=== PATIENT | female | born 1955 | race Caucasian/White ===

== ENCOUNTER 2022-08-01 13:25 | Emergency (ER) | payer OTHER, MEDICAID, SELFPAY ==
[2022-08-01 13:45] VITALS: BP 118/83; PULSE 68; RESP 14; TEMP 36.6; O2SAT 97; BMI 29.1
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
--- NOTE | 2022-08-01 14:46 | ED.NURSE ---
EDITA automatic grinder operator speaking with
--- NOTE | 2022-08-01 14:51 | ED.NURSE ---
145-OCT assessment in progress.
[2022-08-01 16:15] VITALS: BP 118/83; PULSE 68; RESP 14; TEMP 36.6
== END 2022-08-01 17:00 | disposition home or self-care (01) ==
PROVIDERS: Emergency Provider Emergency Medicine; PCP Family Medicine
DX: F31.9 Bipolar disorder, unspecified (principal); F32.A Depression, unspecified
CPT/HCPCS: 99283

== ENCOUNTER 2023-02-05 09:32 | Emergency (ER) | payer OTHER, SELFPAY ==
[2023-02-05 09:36] VITALS: BP 116/76; PULSE 72; RESP 16; TEMP 36.1; O2SAT 98; BMI 29.1
--- NOTE | 2023-02-05 09:48 | ED_ITS ---
HPI - General Adult General Time Seen by Provider: 09:48 Date Seen: 02/05/23 Chief complaint: Unspecified Complaint, Adult Stated complaint: Needs prescription refill Time Seen by Provider: 02/05/23 09:34 Source: patient Mode of arrival: ambulatory Limitations: no limitations History of Present Illness HPI narrative: Patient presents for med refill. Lexi is 9 months new to the community, has not found a psychiatrist and has not plugged into a doctor yet. She is running out of her clonazepam 1 mg daily and she is also continues on her trazodone lithium levothyroxine famotidine which she has medicines for. She has a history of depression, mental health disorders. She has tolerated the medications well. She has denies any history of addiction. Related Data Home Medications Medication Instructions Recorded Confirmed famotidine 20 mg tablet 20 mg PO BID 08/01/22 02/10/23 levothyroxine 75 mcg tablet 75 mcg PO DAILY 08/01/22 02/10/23 lithium carbonate 300 mg tablet 600 mg PO BID 08/01/22 02/10/23 trazodone 100 mg tablet 50 mg PO HS PRN 02/10/23 02/10/23 Previous Rx's Medication Instructions Recorded clonazepam 1 mg tablet 1 mg PO BID Bipolar #60 tabs 02/10/23 Allergies Allergy/AdvReac Type Severity Reaction Status Date / Time No Known Drug Allergies Allergy Verified 02/10/23 08:37 Review of Systems Narrative: No history of worsening mental health currently [facility] Medical History (Updated 02/10/23 @ 09:02 by Shaji Gillespie MD) Bipolar 1 disorder ?F31.9 - Bipolar disorder, unspecified (ICD-10) Hypothyroidism ?E03.9 - Hypothyroidism, unspecified (ICD-10) Social History Smoking Status: Never smoker How often do you have a drink containing alcohol: monthly or less AUDIT-C Alcohol total score: 1 Non-prescribed substance use: denies use Little interest or pleasure in doing things: several days Feeling down, depressed, or hopeless: several days service: Yes Exam Narrative: Exam Narrative: Objective vital signs as above Patient is alert oriented, mental status is appropriate Const: Vital Signs, click to edit/add: Vital Signs - 24 hr 02/05/23 09:36 Temperature 96.9 F L Pulse Rate [Left P ulse Oximeter] 72 Respiratory Rate 16 Blood Pressure [Le ft Upper Arm] 116/76 Pulse Oximetry 98 Oxygen Delivery Me thod Room Air Course Vital Signs Vital signs: Initial Vital Signs Temperature 96.9 F L 02/05/23 09:36 Temperature Source Temporal Artery Scan 02/05/23 09:36 Pulse Rate 72 02/05/23 09:36 Pulse Rhythm Regular 02/05/23 09:36 Pulse Strength 3+ Normal 02/05/23 09:36 Respiratory Rate 16 02/05/23 09:36 Blood Pressure 116/76 02/05/23 09:36 Blood Pressure Mean 89 02/05/23 09:36 Blood Pressure Position Sitting 02/05/23 09:36 Pulse Oximetry 98 02/05/23 09:36 Oxygen Delivery Method Room Air 02/05/23 09:36 Vital Signs Temperature 96.9 F L 02/05/23 09:36 Pulse Rate 72 02/05/23 09:36 Respiratory Rate 16 02/05/23 09:36 Blood Pressure 116/76 02/05/23 09:36 Pulse Oximetry 98 02/05/23 09:36 Oxygen Delivery Method Room Air 02/05/23 09:36 Temperature 96.9 F L 02/05/23 09:36 Pulse Rate 72 02/05/23 09:36 Respiratory Rate 16 02/05/23 09:36 Blood Pressure 116/76 02/05/23 09:36 Pulse Oximetry 98 02/05/23 09:36 Oxygen Delivery Method Room Air 02/05/23 09:36 Medical Decision Making MDM Narrative Medical decision making narrative: Patient has run out of her clonazepam medication which she takes 1 mg b.i.d., she has been on this for a good period of time she reports. It has been stable. We will set up to see clinic doctor in the next few days, she can consult psychiatrist as able. Will refill her medicine for a week. Discharge Plan Discharge Clinical Impression: Medication refill, Depression Patient Disposition: Home, Self-Care Condition: Stable Additional Instructions: Follow up appointment is scheduled at the [facility] on 02/10 with an 8:30am appointment time. If you have any questions or need to reschedule, please call [phone]. [address] [address] Activity Level: No Restrictions Discharge Diet: Regular Prescriptions: No Action clonazepam 1 mg tablet 1 mg PO BID Qty: 60 2RF famotidine 20 mg tablet 20 mg PO BID lithium carbonate 300 mg tablet 600 mg PO BID levothyroxine 75 mcg tablet 75 mcg PO DAILY trazodone 100 mg tablet 50 mg PO HS PRN Patient Comments: Take 1-2 tabs at HS PRN Follow Up/Referrals: Zunilda Jackson MD [Primary Care Provider] - Stand Alone Forms: [employer] Info Instructions
== END 2023-02-05 10:18 | disposition home or self-care (01) ==
LOC: ED 10:14
PROVIDERS: Emergency Provider Family Medicine; PCP Family Medicine
DX: F32.A Depression, unspecified (principal); Z76.0 Encounter for issue of repeat prescription
CPT/HCPCS: 99283

== ENCOUNTER 2023-06-11 13:17 | Outpatient (CLI) | payer OTHER, SELFPAY | END 2023-06-11 13:18 | disposition home or self-care (01) | PROVIDERS: PCP Internal Medicine; Visit Provider Internal Medicine | DX: E03.9 Hypothyroidism, unspecified (principal); F31.9 Bipolar disorder, unspecified | CPT/HCPCS: 80048; 80178; 84443 ==

== ENCOUNTER 2023-06-25 16:41 | Outpatient (CLI) | payer OTHER, SELFPAY | END 2023-06-25 16:42 | disposition home or self-care (01) | LOC: NFLDREF 16:42 | PROVIDERS: PCP Internal Medicine; Visit Provider Internal Medicine | DX: F31.9 Bipolar disorder, unspecified (principal); E03.9 Hypothyroidism, unspecified | CPT/HCPCS: 80178 ==

== ENCOUNTER 2023-07-22 13:21 | Outpatient (CLI) | payer OTHER, SELFPAY | END 2023-07-22 13:22 | disposition home or self-care (01) | LOC: NFLDREF 13:21 | PROVIDERS: PCP Internal Medicine; Visit Provider Internal Medicine | DX: F31.9 Bipolar disorder, unspecified (principal) | CPT/HCPCS: 80178 ==

== ENCOUNTER 2024-04-20 09:50 | Outpatient (CLI) | payer OTHER, SELFPAY ==
--- OUTSIDE RECORDS SUMMARY | 2024-04-25 10:22 | XMS_ITS | Encounter Summary ---
Author Organization [facility] Address [address] [place] [address] Care Team Providers Care Torch Straightener And Heater Name Role Phone Marianela Back M.D. Primary Care Provider +1- [phone] Reason for Referral * Behavioral Health (Routine) - Authorized Specialty Diagnoses / Procedures Referred By Paige arnold Referred To Contact Psychiatry / Psychiatry and Psychology Diagnoses Bipolar I Disorder (HCC) Marianela Back M.D. [address] [place] [phone] [facility] Region Referral ID Status Reason Start Date Expiration Date Visits Requested Visits Authorized [id number] Authorized Specialty Services Required 01/09/2024 07/10/2025 1 1 Scheduling Instructions Patient requesting [place] or [place] location. FISHER Reason for Visit * Reason Onset Date Comments Referral 01/09/2024 Encounter Details Date Type Department Care Team (Late st Contact Info) Description 01/09/2024 Clinical Communication Department of Family Medicine, [facility], in [address] [phone] Marianela Back M.D. [address] [place] [phone] Referral Social History Tobacco Use Types Packs/Day Years Used Date Smoking Tobacco: Never Smokeless Tobacco: Never Alcohol Use Standard Drinks/Week Comments Yes 2 (1 standard drink = 0.6 oz pur e alcohol) monthly [facility] Utilities Answer Date Recorded In [...] your living situation today? I have a [facility] place to live 12/18/2023 Sex and Gender Information Value Date Recorded Sex Assigned at Female 12/18/2023 8:55 AM LINE FISHER Gender Identity Female 05/21/2018 4:12 PM CDT Sexual Orientation Straight 05/21/2018 4: 12 PM CDT documented as of this encounter Plan of Treatment Upcoming Encounters Date Type Department Care Team (Late st Contact Info) Description 06/16/2024 2:45 PM CDT Telemedicine Department of Allergy in [place], [place] [address] [place] [phone] Araceli Fierro M.D. [address] [place] [phone] Discharge Disposition: Home or Self Care Scheduled [...] Depression Total Score: 11 024 12:44 PM LINE FISHER documented as of this encounter Care Teams Torch Straightener And Heater Relationship Specialty Start Date End Date Marianela Back M.D. [address] [phone] PCP - General Family Medicine 12/08/23 documented as of this encounter
--- OUTSIDE RECORDS SUMMARY | 2024-04-25 10:22 | XMS_ITS | Encounter Summary ---
Author Organization [facility] Address [address] [place] [address] Care Team Providers Care Seed Cleaning Machine Operator Name Role Phone Marianela Back M.D. Primary Care Provider +1- [phone] Encounter Details Date Type Department Care Team (Late st Contact Info) Description 01/14/2017 Historical Ophthalmology [facility] Eduardo Todd O.D. [address] [place] [address] Social History Tobacco Use Types Packs/Day Years Used Date Smoking Tobacco: Never Sex and Gender Information Value Date Recorded Sex Assigned at Female 12/18/2023 8:55 AM HOUSE SERVANT Gender Identity Female 05/21/2018 4:12 PM CDT [...] eyeglass prescription\ CDM Reports - EYEGEN Id: [id number] Status: Fnl documented in this encounter Plan of Treatment Upcoming Encounters Date Type Department Care Team (Late st Contact Info) Description 06/16/2024 2:45 PM CDT Telemedicine Department of Allergy in [address] [phone] Araceli Fierro M.D. [address] [place] [phone] Discharge Disposition: Home or Self Care documented as of this encounter Visit Diagnoses Not on filedocumented in this encounter Additional Health Concerns Infection Onset Date Last Indicated Resolved Time COVID19 Pending 11/18/2020 11/18/2020 11/18/2020 1 1:59 AM HOUSE SERVANT COVID19 Pending 11/18/2020 11/18/2020 11/18/2020 6 :45 PM HOUSE SERVANT COVID19 Pending 10/15/2021 10/15/2021 10/15/2021 8 :23 PM HOUSE SERVANT COVID19 Pending 01/29/2022 01/29/2022 01/29/2022 1 :59 PM CDT COVID19 Pending 03/28/2022 03/28/2022 03/28/2022 1 0:49 AM CDT COVID19 Pending 03/28/2022 03/28/2022 03/28/2022 1 :14 PM CDT Assessment Noted Time PHQ-9 Depression Total Score: 0 03/13/20 15 3:14 PM CDT documented as of this encounter Care Teams Seed Cleaning Machine Operator Relationship Specialty Start Date End Date Marianela Back M.D. [address] [place] [phone] PCP - General Family Medicine 12/08/23 documented as of this encounter
--- OUTSIDE RECORDS SUMMARY | 2024-04-25 10:22 | XMS_ITS | Referral Summary ---
Author Organization [facility] Address [address] [place] [address] Care Team Providers Care Compliance Lead Name Role Phone Marianela Back M.D. Primary Care Provider +1- [phone] Source Comments Patient records contain information from all sites at [facility]. For routine questions regarding patient records, call [phone] during business hours, M-F 8:00 AM - 5:00 PM Central Time. Record requests for emergency care only can be directed to [phone] at any time.[facility] Encounters Date Type Department Care Team Description 02/06/2024 Clinical Communication Department of Family Medicine, [facility], in [address] [phone] Marianela Back M.D. Referral-Psychiatry from Last 3 Months Allergies Active Allergy [...] - MODE RNA (12 YEARS AND OLDER) [id number] 12/24/2023 SARS-COV-2 (COVID-19) - PFIZ ER (Discontinued)(12 [...] = 0.6 oz pur e alcohol) monthly [facility] Utilities Answer Date Recorded In the [...] your living situation today? I have a [facility] place to live 12/18/2023 Sex and Gender Information Value Date Recorded Sex Assigned at Female 12/18/2023 8:55 AM SUPPORT TECHNICIAN Gender Identity Female 05/21/2018 4:12 PM CDT Sexual Orientation Straight 05/21/2018 4: 12 PM CDT Last Filed Vital Signs Vital Sign Reading Time Taken Comments Blood Pressure 130/82 12/29/2023 12:42 PM SUPPORT TECHNICIAN Pulse 70 12/29/2023 12:42 PM SUPPORT TECHNICIAN Temperature 36.9 ??C (98.4 ??F) 12/24/2023 1 1:57 AM SUPPORT TECHNICIAN Respiratory Rate 16 06/02/2023 1:48 PM CDT Oxygen Saturation 98% 12/24/2023 11: 57 AM SUPPORT TECHNICIAN Inhaled Oxygen Concentration - - Weight 79.4 kg (175 lb 0.7 oz) 12/29/19 24 12:42 PM SUPPORT TECHNICIAN with shoes Height 166.5 cm (5' 5.55) 12/29/2023 1 2:42 PM SUPPORT TECHNICIAN with shoes Body Mass Index 28.64 12/29/2023 12:42 PM SUPPORT TECHNICIAN Plan of Treatment Upcoming Encounters Date Type Department Care Team (Late st Contact Info) Description 06/16/2024 2:45 PM CDT Telemedicine Department of Allergy in [address] [phone] Araceli Fierro M.D. [address] [place] [phone] Discharge Disposition: Home or Self Care Procedures Procedure Name Priority Date/Time Associated Diagnosis Comments THYROID FUNCTION CASCADE, S Routine 12/24/2023 12:52 PM SUPPORT TECHNICIAN Hypothyroidism EXTI COMPREHENSIVE METABOLIC PANEL, S/P Routine 04/24/2022 2:38 PM CDT BI BREAST SCREENING BILATERAL WITH TOMOSYNTHESIS RAD - Routine (most inpatients and all outpatients) 03/13/2021 1:50 PM CDT PATHOLOGY PARAPROFESSIONAL AIDE CYTOLOGY Routine 05/21/2018 11:21 AM CDT Pap Smear Examination COLONOSCOPY Routine 04/09/2016 from Last 3 Months or Most Recently Relevant to Health Maintenance Results * Thyroid Function [place] (12/24/2023 12:52 PM SUPPORT TECHNICIAN) TSH, Sensitive 0.8 0.3 - 4.2 mIU/L 12/24/2023 1:51 PM SUPPORT TECHNICIAN CNFL Blood (Blood, Venous) 12/24/2023 12:52 PM SUPPORT TECHNICIAN 12/24/2023 12:53 PM SUPPORT TECHNICIAN Marianela Back M.D. LAB BLOOD ADD-ON [facility] [address] [place] [address], [facility] CNFL [facility] in [address] [address] * Pathology PARAPROFESSIONAL AIDE Cytology (05/21/2018 11:21 AM CDT) PATHOLOGY PARAPROFESSIONAL AIDE CYTOLOGY Patient Name: LEXI MCELROY MR#: [id number] Location: ??[facility] Date Reported: ??06/05/2018 15:13 Specimen #[id number] Other Clinical Conditions: Pap Type: Routine Pap Clinical History/Status (Select all that apply): Post Menopausal Ancillary Testing (Select all that apply): HPV with Genotyping, PCR, ThinPrep (order separately in [facility] [id number]) Source: ThinPrep Liquid Based Pap Test, cervical/endocer [...] ? Valerie Patricia MD ([id number]) Date Reported:06/05/20 15:[address], ??[place] [address] CPT Code(s) A: 617588620, 07602 The cervico-vaginal smear is a screening test [...] LAB PAP COPATH ORDERABLES JESUS ZUÑIGA [address] [place] [address], [facility] * Colonoscopy (04/09/2016) EXT Colonoscopy Abnormal - See Scanned Report for Details Normal - See Scanned Report for Details, HIMS - Report Received and Scanned Comment:Colonoscopy done in- house. Recall 5 years. Historical Provider GI PROCEDURE ORDERAB LES from Last 3 Months or Most Recently Relevant to Health Maintenance Care Teams Compliance Lead Relationship Specialty Start Date End Date Marianela Back M.D. [address] [place] [phone] PCP - General Family Medicine 12/08/23
--- OUTSIDE RECORDS SUMMARY | 2024-04-25 10:22 | XMS_ITS ---
Author Organization [facility] Address [address] [place] [address] Care Team Providers Care Lab Nurse Name Role Phone Unavailable Unavailable Unavailable Surgery Details Not on file Complications Check Surgery Details section. Procedure Estimated Blood Loss Check Surgery Details section. Procedure Findings Check Surgery Details section. Procedure Specimens Taken Check Surgery Details section.
--- OUTSIDE RECORDS SUMMARY | 2024-04-25 10:22 | XMS_ITS | Encounter Summary ---
Author Organization [facility] Address [address] [place] [address] Care Team Providers Care Hair Spinning Machine Operator Name Role Phone Marianela Back M.D. Primary Care Provider [phone]- [phone] Encounter Details Date Type Department Care Team (Late st Contact Info) Description 04/27/2015 Historical Ophthalmology [facility] Eduardo Todd O.D. [address] [place] [phone] Social History Tobacco Use Types Packs/Day Years Used Date Smoking Tobacco: Never Assessed Sex and Gender Information Value Date Recorded Sex Assigned at Female 12/18/2023 8:55 AM MUSTANGER Gender Identity Female 05/21/2018 4:12 PM CDT [...] LE scl CDM Reports - EYECL Id: [id number] Status: Fnl documented in this encounter Plan of Treatment Upcoming Encounters Date Type Department Care Team (Late st Contact Info) Description 06/16/2024 2:45 PM CDT Telemedicine Department of Allergy in [place], [place] [address] [place] [phone] Araceli Fierro M.D. [address] [place] [phone] Discharge Disposition: Home or Self Care documented as of this encounter Visit Diagnoses Not on filedocumented in this encounter Additional Health Concerns Infection Onset Date Last Indicated Resolved Time COVID19 Pending 11/18/2020 11/18/2020 11/18/2020 1 1:59 AM MUSTANGER COVID19 Pending 11/18/2020 11/18/2020 11/18/2020 6 :45 PM MUSTANGER COVID19 Pending 10/15/2021 10/15/2021 10/15/2021 8 :23 PM MUSTANGER COVID19 Pending 01/29/2022 01/29/2022 01/29/2022 1 :59 PM CDT COVID19 Pending 03/28/2022 03/28/2022 03/28/2022 1 0:49 AM CDT COVID19 Pending 03/28/2022 03/28/2022 03/28/2022 1 :14 PM CDT Assessment Noted Time PHQ-9 Depression Total Score: 0 03/13/20 15 3:14 PM CDT documented as of this encounter Care Teams Hair Spinning Machine Operator Relationship Specialty Start Date End Date Marianela Back M.D. [address] [place] [phone] PCP - General Family Medicine 12/08/23 documented as of this encounter
--- OUTSIDE RECORDS SUMMARY | 2024-04-25 10:22 | XMS_ITS | Clinical Summary ---
Author Organization [facility] Address [place], [place] [address] Care Team Providers Care Front End Loader Driver Name Role Phone Amanda Vargas RN Unavailable [phone] Oxana Pedroza RN Unavailable [phone] Emily Angel RN Unavailable [phone] Pcp, No Primary Care Provider Unavailabl e Allergies Active Allergy Reactions Criticality Noted Date [...] %) nasal sprayIndications:P ost-nasal drip Inhale 1 Hilliard into affected nostril(s) 3 times daily. Hilliard dose in each nostril. 30 mL 07/02/2022 [...] signed 10/29/2022 Overview: Signed 10-29-2022. Cedrick Vinson [facility] Psychiatry History of partial adherence to [...] Name Administration Dates Next Due COVID-19 vaccine (Health in [employer] NTech 30mcg/0.3mL) 12YO+ BIVALENT PF, MDV 10/29/2022 COVID-19 vaccine (Health in [employer] NTech 30mcg/0.3mL) 12YO+ ALEXANDR-SUCROSE PF, MDV 07/17/2022 [...] Ectopic Multiple Livin g Live Births 1 Date Outcome GA Total Labor Labor/2nd/3rd Weight Sex Type Anes PTL Daphne A1 A5 Name Clin 982 Term Livin g Rosario Delivery Location:[facility] [place]) Last Filed Vital Signs Vital Sign Reading Time Taken Comments Blood Pressure 133/81 10/29/2022 8:43 AM FEDERAL AID COORDINATOR Pulse 76 10/29/2022 8:43 AM FEDERAL AID COORDINATOR Temperature 37.3 ??C (99.1 ??F) 07/17/2022 1:22 PM CD T Respiratory Rate - - Oxygen Saturation 98% 07/17/2022 1:22 PM CDT Inhaled Oxygen Concentration - - Weight 82.4 kg (181 lb 11.2 oz) 10/29/2022 8:43 AM FEDERAL AID COORDINATOR Height 167 cm (5' 5.75) 04/24/2022 1:20 PM CDT Body Mass Index 29.55 04/24/2022 1:20 PM CDT Plan of Treatment Upcoming Encounters Date Type Department Care Team (Late st Contact Info) Description 05/25/2024 2:15 PM CDT Office Visit [facility] [address] [place] [phone] Yordan Bhandari-Gianluca Monterroso MD [address] [facility] [address] [place] [address] Health Maintenance Due Date Last Done Comments [...] , 09/19/2014, 08/17/2012 Tetanus booster 05/21/2028 05/21/2018, 02/2008, 08/20/1995, Additional history exists Tdap Completed 06/20/2008 COVID-19 vaccine series Completed 12/24/19, 10/29/2022, 07/17/2022, Additional history exists Care Teams Front End Loader Driver Relationship Specialty Start Date End Date Pcp, No . PCP - General 04/23/24 Amanda Vargas RN [address] [place] [phone] Administrative Specialist - [facility] Registered Nurse 10/17/22 Oxana Pedroza RN [address] [place] [phone] Administrative Specialist - [facility] Registered Nurse 10/17/22 Emily Angel RN [address] [place] [address] [phone] Administrative Specialist - [facility] Registered Nurse 10/17/22
--- OUTSIDE RECORDS SUMMARY | 2024-04-25 10:22 | XMS_ITS | Encounter Summary ---
Author Organization [facility] Address [address] [place] [address] Care Team Providers Care Senior Java Programmer Analyst Name Role Phone Marianela Back M.D. Primary Care Provider [phone] Reason for Visit * Reason Onset Date Comments Referral-Psychiatry 02/06/2024 Encounter Details Date Type Department Care Team (Latest Contact Info) Description 02/06/2024 Clinical Communication Department of Family Medicine, [facility], in [address] [phone] Marianela Back M.D. [address] [place] [phone] Referral-Psychiatry Social History Tobacco Use Types Packs/Day Years Used Date Smoking Tobacco: Never Smokeless Tobacco: Never Alcohol Use Standard Drinks/Week Comments Yes 2 (1 standard drink = 0.6 oz pur e alcohol) monthly [facility] Utilities Answer Date Recorded In the past 12 months has [employer], gas, oil, or water [employer] threatened to shut off services in your [...] your living situation today? I have a [facility] place to live 12/18/2023 Sex and Gender Information Value Date Recorded Sex Assigned at Female 12/18/2023 8:55 AM IDENTITY MANAGEMENT DEVELOPER Gender Identity Female 05/21/2018 4:12 PM CDT Sexual Orientation Straight 05/21/2018 4: 12 PM CDT documented as of this encounter Plan of Treatment Upcoming Encounters Date Type Department Care Team (Late st Contact Info) Description 06/16/2024 2:45 PM CDT Telemedicine Department of Allergy in [place], [place] [address] [place] [phone] Araceli Fierro M.D. [address] [place] [phone] Discharge Disposition: Home or Self Care documented as of this encounter Visit Diagnoses Not on filedocumented in this encounter Additional Health Concerns Assessment Noted Time PHQ-9 Depression Total Score: 11 024 12:44 PM IDENTITY MANAGEMENT DEVELOPER documented as of this encounter Care Teams Senior Java Programmer Analyst Relationship Specialty Start Date End Date Marianela Back M.D. [address] [place] [phone] PCP - General Family Medicine 12/08/23 documented as of this encounter
--- OUTSIDE RECORDS SUMMARY | 2024-04-25 10:22 | XMS_ITS | Clinical Summary ---
Author Organization [facility] Address [address] [place] [address] Care Team Providers Care Advance Seal Delivery System Maintainer Name Role Phone Marianela Back M.D. Primary Care Provider [phone]- [phone] Source Comments Patient records contain information from all sites at [facility]. For routine questions regarding patient records, call [phone] during business hours, M-F 8:00 AM - 5:00 PM Central Time. Record requests for emergency care only can be directed to [phone] at any time.[facility] Allergies Active Allergy Reactions Criticality Noted Date [...] 02/06/2024 Clinical Communication Department of Family Medicine, [facility], in [address] [phone] Marianela Back M.D. Referral-Psychiatry from Last 3 Months Immunizations Name Administration Dates Next Due DTaP (Infanrix, [employer]) 06/20/2008 Influenza, Quadrivalent, Adjuvanted, Preservativ e Free 10/29/2022 Influenza, Unspecified 09/19/2014,08/17/2012 OPV 08/27/1973 SARS-COV-2 (COVID-19) - MODE RNA (12 YEARS AND OLDER) [id number] 12/24/2023 SARS-COV-2 (COVID-19) - PFIZ ER (Discontinued)(12 [...] = 0.6 oz pur e alcohol) monthly [facility] Utilities Answer Date Recorded In the past 12 months has th e [employer], gas, oil, or water [employer] threatened to shut off services in your [...] your living situation today? I have a [facility] place to live 12/18/2023 Sex and Gender Information Value Date Recorded Sex Assigned at Female 12/18/2023 8:55 AM TUFTING SUPERVISOR Gender Identity Female 05/21/2018 4:12 PM CDT Sexual Orientation Straight 05/21/2018 4: 12 PM CDT Last Filed Vital Signs Vital Sign Reading Time Taken Comments Blood Pressure 130/82 12/29/2023 12:42 PM TUFTING SUPERVISOR Pulse 70 12/29/2023 12:42 PM TUFTING SUPERVISOR Temperature 36.9 ??C (98.4 ??F) 12/24/2023 1 1:57 AM TUFTING SUPERVISOR Respiratory Rate 16 06/02/2023 1:48 PM CDT Oxygen Saturation 98% 12/24/2023 11: 57 AM TUFTING SUPERVISOR Inhaled Oxygen Concentration - - Weight 79.4 kg (175 lb 0.7 oz) 12/29/19 12:42 PM TUFTING SUPERVISOR with shoes Height 166.5 cm (5' 5.55) 12/29/2023 1 2:42 PM TUFTING SUPERVISOR with shoes Body Mass Index 28.64 12/29/2023 12:42 PM TUFTING SUPERVISOR Plan of Treatment Upcoming Encounters Date Type Department Care Team (Late st Contact Info) Description 06/16/2024 2:45 PM CDT Telemedicine Department of Allergy in [place], [place] [address] [place] [phone] Araceli Fierro M.D. [address] [place] [phone] Discharge Disposition: Home or Self Care Health Maintenance Due Date Last Done Comments Bone Density Scan (Osteoporo sis Screen) 1956 CT Colonography 1955 Cologuard 1955 Pneumococcal vaccine (65+ ye ars) (1 of 2 - PCV) 1962 Zoster Vaccines (1 of 2) 2006 Colonoscopy 04/09/2021 04/09/2016, 04/09/2016 Colorectal Cancer Surveillance 04/09/2021 Mammogram 03/13/2022 03/13/2021, 04/11/2020, 03/07/2021, Additional history exists Influenza Vaccine (#1) 2023 2, 10/29/2022, 10/22/2018, Additional history exists COVID-19 Vaccine (2022- 4 season) 2024 12/24/2023, 10/29/2022, 07/17/2022, Additional [...] FUNCTION CASCADE, S Routine 12/24/2023 12:52 PM TUFTING SUPERVISOR Hypothyroidism EXTI COMPREHENSIVE METABOLIC PANEL, S/P Routine 04/24/2022 2:38 PM CDT BI BREAST SCREENING BILATERAL WITH TOMOSYNTHESIS RAD - Routine (most inpatients and all outpatients) 03/13/2021 1:50 PM CDT PATHOLOGY VISITOR SERVICES REPRESENTATIVE CYTOLOGY Routine 05/21/2018 11:21 AM CDT Pap Smear Examination COLONOSCOPY Routine 04/09/2016 from Last 3 Months or Most Recently Relevant to Health Maintenance Results * Thyroid Function [place] (12/24/2023 12:52 PM TUFTING SUPERVISOR) TSH, Sensitive 0.8 0.3 - 4.2 mIU/L 12/24/2023 1:51 PM TUFTING SUPERVISOR CNFL Blood (Blood, Venous) 12/24/2023 12:52 PM TUFTING SUPERVISOR 12/24/2023 12:53 PM TUFTING SUPERVISOR Marianela Back M.D. LAB BLOOD ADD-ON [facility] [address] [place] [phone], [facility] CNFL [facility] in [address] [address] * Pathology VISITOR SERVICES REPRESENTATIVE Cytology (05/21/2018 11:21 AM CDT) PATHOLOGY VISITOR SERVICES REPRESENTATIVE CYTOLOGY Patient Name: LEXI MCELROY MR#: [id number] Location: ??[facility] Date Reported: ??06/05/2018 15:13 Specimen #[id number] Other Clinical Conditions: Pap Type: Routine Pap Clinical History/Status (Select all that apply): Post Menopausal Ancillary Testing (Select all that apply): HPV with Genotyping, PCR, ThinPrep (order separately in [facility] [id number]) Source: ThinPrep Liquid Based Pap Test, cervical/endocer [...] Patricia MD ([id number]) Date Reported:06/05/20 18 15:[address], ??[place] [address] CPT Code(s) A: 855316082, 08942 The cervico-vaginal smear is a screening test [...] LAB PAP COPATH ORDERABLES JESUS ZUÑIGA [address] [place] [address], [facility] * Colonoscopy (04/09/2016) EXT Colonoscopy Abnormal - See Scanned Report for Details Normal - See Scanned Report for Details, HIMS - Report Received and Scanned Comment:Colonoscopy done in- house. Recall 5 years. Historical Provider GI PROCEDURE ORDERAB LES from Last 3 Months or Most Recently Relevant to Health Maintenance Care Teams Advance Seal Delivery System Maintainer Relationship Specialty Start Date End Date Marianela Back M.D. [address] [place] [phone] PCP - General Family Medicine 12/08/23
--- OUTSIDE RECORDS SUMMARY | 2024-04-25 10:22 | XMS_ITS | Encounter Summary ---
Author Organization [facility] Address [address] [place] [address] Care Team Providers Care Back Hoe Operator Name Role Phone Mariaenla Back M.D. Primary Care Provider +1- [phone] Encounter Details Date Type Department Care Team (Late st Contact Info) Description 12/14/2015 Historical Ophthalmology [facility] Eduardo Todd O.D. [address] [place] [phone] Social History Tobacco Use Types Packs/Day Years Used Date Smoking Tobacco: Never Assessed Sex and Gender Information Value Date Recorded Sex Assigned at Female 12/18/2023 8:55 AM WHIZZER OPERATOR Gender Identity Female 05/21/2018 4:12 PM CDT Sexual Orientation Straight 05/21/2018 4: 12 PM CDT documented as of this encounter Progress Notes * Eduardo Todd O.D. - 12/14/2015 4:14 PM CST Contact Lens Exam HISTORY OF PRESENT ILLNESS vision isn't that good with contacts but likes to wear them. CDM Reports - EYECL Id: [id number] Status: Fnl documented in this encounter Plan of Treatment Upcoming Encounters Date Type Department Care Team (Late st Contact Info) Description 06/16/2024 2:45 PM CDT Telemedicine Department of Allergy in [place], [place] [address] [facility] [place] [phone] Araceli Fierro M.D. [address] [place] [phone] Discharge Disposition: Home or Self Care documented as of this encounter Visit Diagnoses Not on filedocumented in this encounter Additional Health Concerns Infection Onset Date Last Indicated Resolved Time COVID19 Pending 11/18/2020 11/18/2020 11/18/2020 1 1:59 AM WHIZZER OPERATOR COVID19 Pending 11/18/2020 11/18/2020 11/18/2020 6 :45 PM WHIZZER OPERATOR COVID19 Pending 10/15/2021 10/15/2021 10/15/2021 8 :23 PM WHIZZER OPERATOR COVID19 Pending 01/29/2022 01/29/2022 01/29/2022 1 :59 PM CDT COVID19 Pending 03/28/2022 03/28/2022 03/28/2022 1 0:49 AM CDT COVID19 Pending 03/28/2022 03/28/2022 03/28/2022 1 :14 PM CDT Assessment Noted Time PHQ-9 Depression Total Score: 0 03/13/20 15 3:14 PM CDT documented as of this encounter Care Teams Back Hoe Operator Relationship Specialty Start Date End Date Marianela Back M.D. [address] [place] [phone] PCP - General Family Medicine 12/08/23 documented as of this encounter
--- OUTSIDE RECORDS SUMMARY | 2024-04-25 10:22 | XMS_ITS | Encounter Summary ---
Author Organization [facility] Address [address] [place] [address] Care Team Providers Care Career Education Teacher Name Role Phone Marianela Back M.D. Primary Care Provider +1- [phone] Encounter Details Date Type Department Care Team (Late st Contact Info) Description 01/14/2017 Historical Ophthalmology [facility] Eduardo Todd O.D. [address] [place] [phone] Social History Tobacco Use Types Packs/Day Years Used Date Smoking Tobacco: Never Sex and Gender Information Value Date Recorded Sex Assigned at Female 12/18/2023 8:55 AM INSPECTOR RADAR AND ELECTRONICS Gender Identity Female 05/21/2018 4:12 PM CDT Sexual Orientation Straight 05/21/2018 4: 12 PM CDT documented as of this encounter Progress Notes * Eduardo Todd O.D. - 01/14/2017 1:33 PM CST Contact Lens Exam HISTORY OF PRESENT ILLNESS likes fit not vision of current contacts . last wore cl's 2 days ago CDM Reports - EYECL Id: [id number] Status: Fnl documented in this encounter Plan of Treatment Upcoming Encounters Date Type Department Care Team (Late st Contact Info) Description 06/16/2024 2:45 PM CDT Telemedicine Department of Allergy in [address] [place] [phone] Araceli Fierro M.D. [address] [place] [phone] Discharge Disposition: Home or Self Care documented as of this encounter Visit Diagnoses Not on filedocumented in this encounter Additional Health Concerns Infection Onset Date Last Indicated Resolved Time COVID19 Pending 11/18/2020 11/18/2020 11/18/2020 1 1:59 AM INSPECTOR RADAR AND ELECTRONICS COVID19 Pending 11/18/2020 11/18/2020 11/18/2020 6 :45 PM INSPECTOR RADAR AND ELECTRONICS COVID19 Pending 10/15/2021 10/15/2021 10/15/2021 8 :23 PM INSPECTOR RADAR AND ELECTRONICS COVID19 Pending 01/29/2022 01/29/2022 01/29/2022 1 :59 PM CDT COVID19 Pending 03/28/2022 03/28/2022 03/28/2022 1 0:49 AM CDT COVID19 Pending 03/28/2022 03/28/2022 03/28/2022 1 :14 PM CDT Assessment Noted Time PHQ-9 Depression Total Score: 0 03/13/20 15 3:14 PM CDT documented as of this encounter Care Teams Career Education Teacher Relationship Specialty Start Date End Date Marianela Back M.D. [address] [place] [phone] PCP - General Family Medicine 12/08/23 documented as of this encounter
--- OUTSIDE RECORDS SUMMARY | 2024-04-25 10:22 | XMS_ITS | Encounter Summary ---
Author Organization [facility] Address [address] [place] [address] Care Team Providers Care Radiation Safety Officer Name Role Phone Marianela Back M.D. Primary Care Provider [phone]- [phone] Reason for Visit * Reason Onset Date Comments Colonoscopy 01/23/2024 Encounter Details Date Type Department Care Team (Late st Contact Info) Description 01/23/2024 Clinical Communication Department of Family Medicine, [facility], in [address] [phone] Marianela Back M.D. [address] [place] [phone] Colonoscopy Social History Tobacco Use Types Packs/Day Years Used Date Smoking Tobacco: Never Smokeless Tobacco: Never Alcohol Use Standard Drinks/Week Comments Yes 2 (1 standard drink = 0.6 oz pur e alcohol) monthly [facility] Utilities Answer Date Recorded In the past 12 months has [employer], gas, oil, or water [employer] threatened to shut off services in your [...] your living situation today? I have a [facility] place to live 12/18/2023 Sex and Gender Information Value Date Recorded Sex Assigned at Female 12/18/2023 8:55 AM MARKETING AUTOMATION SPECIALIST Gender Identity Female 05/21/2018 4:12 PM CDT Sexual Orientation Straight 05/21/2018 4: 12 PM CDT documented as of this encounter Plan of Treatment Upcoming Encounters Date Type Department Care Team (Late st Contact Info) Description 06/16/2024 2:45 PM CDT Telemedicine Department of Allergy in [place], [place] [address] [place] [phone] Araceli Fierro M.D. [address] [place] [phone] Discharge Disposition: Home or Self Care documented as of this encounter Visit Diagnoses Not on filedocumented in this encounter Additional Health Concerns Assessment Noted Time PHQ-9 Depression Total Score: 11 024 12:44 PM MARKETING AUTOMATION SPECIALIST documented as of this encounter Care Teams Radiation Safety Officer Relationship Specialty Start Date End Date Marianela Back M.D. [address] [phone] PCP - General Family Medicine 12/08/23 documented as of this encounter
--- OUTSIDE RECORDS SUMMARY | 2024-04-25 10:22 | XMS_ITS | Encounter Summary ---
Author Organization [facility] Address [address] [place] [address] Care Team Providers Care In Home Aide Name Role Phone Marianela Back M.D. Primary Care Provider +1- [phone] Encounter Details Date Type Department Care Team (Late st Contact Info) Description 12/14/2015 Historical Ophthalmology [facility] Eduardo Todd O.D. [address] [place] [phone] Social History Tobacco Use Types Packs/Day Years Used Date Smoking Tobacco: Never Assessed Sex and Gender Information Value Date Recorded Sex Assigned at Female 12/18/2023 8:55 AM BOWLING FLOOR MANAGER Gender Identity Female 05/21/2018 4:12 PM [...] eyeglass prescription CDM Reports - EYEGEN Id: [id number] Status: Fnl documented in this encounter Plan of Treatment Upcoming Encounters Date Type Department Care Team (Late st Contact Info) Description 06/16/2024 2:45 PM CDT Telemedicine Department of Allergy in [place], [place] [address] [place] [phone] Araceli Fierro M.D. [address] [place] [phone] Discharge Disposition: Home or Self Care documented as of this encounter Visit Diagnoses Not on filedocumented in this encounter Additional Health Concerns Infection Onset Date Last Indicated Resolved Time COVID19 Pending 11/18/2020 11/18/2020 11/18/2020 1 1:59 AM BOWLING FLOOR MANAGER COVID19 Pending 11/18/2020 11/18/2020 11/18/2020 6 :45 PM BOWLING FLOOR MANAGER COVID19 Pending 10/15/2021 10/15/2021 10/15/2021 8 :23 PM BOWLING FLOOR MANAGER COVID19 Pending 01/29/2022 01/29/2022 01/29/2022 1 :59 PM CDT COVID19 Pending 03/28/2022 03/28/2022 03/28/2022 1 0:49 AM CDT COVID19 Pending 03/28/2022 03/28/2022 03/28/2022 1 :14 PM CDT Assessment Noted Time PHQ-9 Depression Total Score: 0 03/13/20 15 3:14 PM CDT documented as of this encounter Care Teams In Home Aide Relationship Specialty Start Date End Date Marianela Back M.D. [address] [address] [place] [phone] PCP - General Family Medicine 12/08/23 documented as of this encounter
== END 2024-04-20 09:51 | disposition home or self-care (01) ==
LOC: NFLDREF 04-25 10:20
PROVIDERS: PCP Internal Medicine; Referring Provider Internal Medicine; Visit Provider Internal Medicine
DX: F31.9 Bipolar disorder, unspecified (principal); Z51.81 Encounter for therapeutic drug level monitoring
CPT/HCPCS: 80178

== ENCOUNTER 2024-04-21 13:39 | Outpatient (CLI) | payer OTHER, SELFPAY ==
--- OUTSIDE RECORDS SUMMARY | 2024-04-21 13:41 | XMS_ITS | Clinical Summary ---
Author Organization [facility] Address [place], [place] [address] Care Team Providers Care Char Conveyor Tender Cellar Name Role Phone Amanda Vargas RN Unavailable [phone] Oxana Pedroza RN Unavailable [phone] Emily Angel RN Unavailable Allergies Active Allergy Reactions Criticality Noted Date Comments Aripiprazole Nausea And Vomiting 03/27/2009 Quetiapine Other - Describe In Comment Field 05/28/2017 Loss of balance Ziprasidone Hcl Itching 05/28/2017 Medications Medication Sig Dispensed Refills Start Date End Date Status famotidine (PEPCID) 20 mg tablet Take 20 mg by mouth 2 times daily. 10/18/2021 Active multivitamin (MVI) tablet Take 1 Tablet by mouth once daily. Active cetirizine (ZYRTEC) 10 mg tabletIndications: Post-nasal drip Take 1 Tablet (10 mg) by mouth once daily. 30 Tablet 07/02/2022 Active ipratropium (ATROVENT NASAL) 21 mcg (0.03 %) nasal sprayIndications:P ost-nasal drip Inhale 1 [place] into affected nostril(s) 3 times daily. [place] dose in each nostril. 30 mL 07/02/2022 Active traZODone (DESYREL) 100 mg tabletIndications: Bipolar 1 disorder (HC) Take 1 Tablet (100 mg) by mouth at bedtime. 90 Tablet 3 10/29/2022 Active lithium carbonate 600 mg capsuleIndications :Bipolar 1 disorder (HC) Take 1 Capsule (600 mg) by mouth two times daily. 180 Capsule 3 10/29/2022 Active clonazePAM (KLONOPIN) 1 mg tabletIndications: Bipolar 1 disorder (HC) Take 1 Tablet (1 mg) by mouth two times daily. Further refills will be prescribed during an appointment 60 Tablet 2 10/29/2022 Active levothyroxine (SYNTHROID) 75 mcg tabletIndications: Hypothyroidism (acquired) Take 1 Tablet (75 mcg) by mouth once daily. 30 Tablet 06/11/2023 Active Active Problems Problem Noted Date Diagnosed Date Controlled substance agreement signed 10/29/2022 Overview: Signed 10-29-2022. 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 smear 04/27/2015 Overview: 2014: Pap: normal, HPV+ (negative for 16/18) 2015: Pap: LSIL, HPV+ (negative for 16/18); colp EYAL 1, ECC negative 2016: Pap: normal, HPV+ (negative for 16/18); colp EYAL 1, ECC EYAL 1 2017: Pap: normal, HPV- 2018: Pap: ASCUS, HPV- Abnormal cervical Papanicola ou smear with positive human papilloma virus (HPV) DNA test 04/27/2015 Resolved Problems Problem Noted Date Diagnosed Date Resolved Date Acne rosacea, papular type 08/24/2019 0 07/17/2022 History of alcohol abuse 10/23/2018 History of substance abuse 10/23/2018 0 07/17/2022 Substance abuse in remission 10/23/2018 10/29/2022 Drug-related disorder 05/09/20172021 Obesity with body mass index 30 or greater 04/01/2016 07/17/2022 Carpal tunnel syndrome 03/26/201607/17 Anxiety 02/07/2012 10/29/2022 Immunizations Name Administration Dates Next Due COVID-19 vaccine (OROS-Bio NTech 30mcg/0.3mL) 12YO+ BIVALENT PF, MDV 10/29/2022 COVID-19 vaccine (OROS-Bio NTech 30mcg/0.3mL) 12YO+ ALEXANDR-SUCROSE PF, MDV 07/17/2022 DTaP 06/20/2008 Influenza Virus, Unspecified 09/19/2014,08/17/20 12 Influenza, Inactivated AIIV4 (Age 65+ Years) Preserv Free 10/29/2022 Oral Polio Vaccine 08/27/1973 Td (Age >=7 Years) 08/20/1995,03/05/1972 Td, Preservative Free (age >= 7 Years) 8 Tdap 06/20/2008 Family History Medical History Relation Name Comments Anxiety disorder Daughter Rosario Depression Daughter Rosario Suicide Attempts Daughter Rosario Bipolar disorder Mother Depression Sister Relation Name Status Comments Daughter Rosario Other Mother Sister Social History Tobacco Use Types Packs/Day Years Used Date Smoking Tobacco: Never Smokeless Tobacco: Never Tobacco Cessation:Counseling Given: Not Answered Alcohol Use Standard Drinks/Week Comments Yes 0 (1 standard drink = 0.6 oz pur e alcohol) 1-2 drinks, 2-3 times a month PHQ-2 Answer Date Recorded PHQ-2 TOTAL SCORE 2 10/29/2022 Social Connections Answer Date Recorded Frequency of Communication with Friends and Fami ly Not on file 07/18/2023 Alcohol Use Answer Date Recorded How often do you have a drink containing alcohol ? 2 10/29/2022 How many drinks containing a lcohol do you have on a typical day when you are drinking? 0 10/29/2022 How often do you have five or more drinks on one occasion? 1 10/29/2022 Financial Resource Strain Answer Date R ecorded Difficulty of Paying Living Expenses 2 07/17/2022 Difficulty of Paying Living Expenses Not on file 07/17/2022 Food Insecurity Answer Date Recorded Worried About Running Out of Food in the Last Ye ar 1 07/17/2022 Transportation Needs Answer Date Record ed Lack of Transportation (Medical) 2 07/17/2022 Housing Stability Answer Date Recorded Unable to Pay for Housing in the Last Year 1 07/17/2022 Education Answer Date Recorded What is the highest level of school you have completed or the highest degree you have received? Some college, no degree 10/29/2022 Sex and Gender Information Value Date Recorded Sex Assigned at Not on file Gender Identity Not on file Sexual Orientation Not on file Obstetrics History Para Term AB IAB SAB Ectopic Multiple Livin g Live Births 1 1 1 1 1 Date Outcome GA Total Labor Labor/2nd/3rd Weight Sex Delivery Anes PTL Daphne A1 A5 Name Cl in 08/31 Term Noni ng Rosario Delivery Location:Hospital ( [facility]) Last Filed Vital Signs Vital Sign Reading Time Taken Comments Blood Pressure 133/81 10/29/2022 8:43 AM REGISTERED NURSE STEP DOWN Pulse 76 10/29/2022 8:43 AM REGISTERED NURSE STEP DOWN Temperature 37.3 ??C (99.1 ??F) 07/17/2022 1:22 PM CD T Respiratory Rate - - Oxygen Saturation 98% 07/17/2022 1:22 PM CDT Inhaled Oxygen Concentration - - Weight 82.4 kg (181 lb 11.2 oz) 10/29/2022 8:43 AM REGISTERED NURSE STEP DOWN Height 167 cm (5' 5.75) 04/24/2022 1:20 PM CDT Body Mass Index 29.55 04/24/2022 1:20 PM CDT Plan of Treatment Health Maintenance Due Date Last Done Comments Pneumococcal series for age 65+ (1 of 2 - PCV) 1962 Hepatitis C screening for ag e 18-79 1974 Colonoscopy through age 75 2001 Lipids for age 45-75 2001 Mammogram for age 45-75 2001 Zoster (shingles) series for age 50+ (1 of 2) 2006 DEXA/DXA scan for age 65+ 2021 Medicare Wellness for age 65+ 2021 BMI (ht and wt on same day) for age 18+ 04/24/2023 04/24/2022 Depression screening for age 12+ 10/29/2023 10/29/20, 04/24/2022 Influenza for age 65+ 07/18/2024 10/29/2022 , 09/19/2014, 08/17/2012 Tetanus booster 05/21/2028 05/21/2018, 08/0 02/2008, 08/20/1995, Additional history exists Tdap Completed 06/20/2008 COVID-19 vaccine series Completed 12/24/19, 10/29/2022, 07/17/2022, Additional history exists Care Teams Char Conveyor Tender Cellar Relationship Specialty Start Date End Date Amanda Vargas RN [address] [id number] [employer] [place] [facility] Nurse 10/17/22 Oxana Pedroza RN [address] [phone] [employer] [place] [facility]istered Nurse 10/17/22 Emily Angel RN [address] [id number] [employer] - [facility] Registered Nurse 10/17/22
--- OUTSIDE RECORDS SUMMARY | 2024-04-21 13:42 | XMS_ITS | Encounter Summary ---
Author Organization [facility] Address [address] [place] [address] Care Team Providers Care Dial Polisher Name Role Phone Marianela Back M.D. Primary Care Provider [phone] Reason for Visit * Reason Onset Date Comments Referral-Psychiatry 02/06/2024 Encounter Details Date Type Department Care Team (Latest Contact Info) Description 02/06/2024 Clinical Communication Department of Family Medicine, [facility], in [address] [phone] Marianela Back M.D. [address] [place] [phone] Referral-Psychiatry Social History Tobacco Use Types Packs/Day Years Used Date Smoking Tobacco: Never Smokeless Tobacco: Never Alcohol Use Standard Drinks/Week Comments Yes 2 (1 standard drink = 0.6 oz pur e alcohol) monthly [facility] Utilities Answer Date Recorded In the past 12 months has Ev[employer], gas, oil, or water [employer] threatened to shut off services in your home? No 12/18/2023 PHQ-2 Answer Date Recorded PHQ-2 Score 2 12/29/2023 Exercise Vital Sign Answer Date Recorde d On average, how many days pe r week do you engage in moderate to strenuous exercise (like a brisk walk)? 1 day 12/18/2023 On average, how many minutes do you engage in exercise at this level? 10 min 12/18/2023 Hunger Vital Sign Answer Date Recorded Within the past 12 months, y ou worried that your food would run out before you got the money to buy more. Often true Within the past 12 months, t he food you bought just didn't last and you didn't have money to get more. Sometimes true 11/2023 PRAPARE - Transportation Answer Date Re corded In the past 12 months, has l ack of transportation kept you from medical appointments or from getting medications? No 11/2023 In the past 12 months, has l ack of transportation kept you from meetings, work, or from getting things needed for daily living? No 12/18/2023 Depression Answer Date Recor ded PHQ-9 Total Score (max 27) 11 12/29 Nutrition Answer Date Recorded Nutrition: EVOO Fat Source Unknown 12/18 On average, how many serving s of fruits and vegetables do you eat per day (serving size is equal to 1 cup or approximately the size of a tennis ball)? 0-2 12/18/2023 Dental Answer Date Recorded Dental: Regular Dentist Yes 12/18/19 Employment Answer Date Recorded Employment status Permanently disabled Housing Stability Answer Date Recorded What is your living situation today? I have a [facility] place to live 12/18/2023 Sex and Gender Information Value Date Recorded Sex Assigned at Female 12/18/2023 8:55 AM LENS GAUGER Gender Identity Female 05/21/2018 4:12 PM CDT Sexual Orientation Straight 05/21/2018 4: 12 PM CDT documented as of this encounter Plan of Treatment Upcoming Encounters Date Type Department Care Team (Late st Contact Info) Description 06/16/2024 2:45 PM CDT Telemedicine Department of Allergy in [address] [phone] Araceli Fierro M.D. [address] [place] [phone] Discharge Disposition: Home or Self Care documented as of this encounter Visit Diagnoses Not on filedocumented in this encounter Additional Health Concerns Assessment Noted Time PHQ-9 Depression Total Score: 11 024 12:44 PM LENS GAUGER documented as of this encounter Care Teams Dial Polisher Relationship Specialty Start Date End Date Marianela Back M.D. [address] [phone] PCP - General Family Medicine 12/08/23 documented as of this encounter
--- OUTSIDE RECORDS SUMMARY | 2024-04-21 13:42 | XMS_ITS ---
Author Organization [facility] Address [address] [place] [address] Care Team Providers Care Archival Records Clerk Name Role Phone Unavailable Unavailable Unavailable Surgery Details Not on file Complications Check Surgery Details section. Procedure Estimated Blood Loss Check Surgery Details section. Procedure Findings Check Surgery Details section. Procedure Specimens Taken Check Surgery Details section.
--- OUTSIDE RECORDS SUMMARY | 2024-04-21 13:42 | XMS_ITS | Encounter Summary ---
Author Organization [facility] Address [address] [place] [address] Care Team Providers Care Micro Photographer Name Role Phone Marianela Back M.D. Primary Care Provider [phone]- [phone] Reason for Referral * Behavioral Health (Routine) - Authorized Specialty Diagnoses / Procedures Referred By Paige arnold Referred To Contact Psychiatry / Psychiatry and Psychology Diagnoses Bipolar I Disorder (HCC) Marianela Back M.D. [address] [place] [phone] [facility] Region Referral ID Status Reason Start Date Expiration Date Visits Requested Visits Authorized [id number] Authorized Specialty Services Required 01/09/2024 07/10/2025 1 1 Scheduling Instructions Patient requesting [place] or [place] location. TS COMMENTATOR Reason for Visit * Reason Onset Date Comments Referral 01/09/2024 Encounter Details Date Type Department Care Team (Late st Contact Info) Description 01/09/2024 Clinical Communication Department of Family Medicine, [facility], in [address] [phone] Marianela Back M.D. [address] [place] [phone] Referral Social History Tobacco Use Types Packs/Day Years Used Date Smoking Tobacco: Never Smokeless Tobacco: Never Alcohol Use Standard Drinks/Week Comments Yes 2 (1 standard drink = 0.6 oz pur e alcohol) monthly [facility] Utilities Answer Date Recorded In the past 12 months has th e electric, gas, oil, or water company threatened to shut off services in your [...] Date Recorded Dental: Regular Dentist Yes 12/18/19 24 Employment Answer Date Recorded Employment status Permanently disabled Housing Stability Answer Date Recorded What is your living situation today? I have a [facility] place to live 12/18/2023 Sex and Gender Information Value Date Recorded Sex Assigned at Female 12/18/2023 8:55 AM SPORTS COMMENTATOR Gender Identity Female 05/21/2018 4:12 PM CDT Sexual Orientation Straight 05/21/2018 4: 12 PM CDT documented as of this encounter Plan of Treatment Upcoming Encounters Date Type Department Care Team (Late st Contact Info) Description 06/16/2024 2:45 PM CDT Telemedicine Department of Allergy in [place], [place] [address] [place] [phone] Araceli Fierro M.D. [address] [place] [phone] Discharge Disposition: Home or Self Care Scheduled Referrals Name Type Priority Associated Diagnoses Order Schedule Psychiatry and Psychology - General consult (clinic) Outpatient Referral Routine Bipolar I Disorder (HCC) Expected: 01/09/2024 (Approximate), Expires: 04/08/2025 documented as of this encounter Visit Diagnoses Diagnosis Bipolar Disorder Current Episode Mixed Moderate (HCC)- Primary Bipolar I Disorder (HCC) documented in this encounter Additional Health Concerns Assessment Noted Time PHQ-9 Depression Total Score: 11 024 12:44 PM SPORTS COMMENTATOR documented as of this encounter Care Teams Micro Photographer Relationship Specialty Start Date End Date Marianela Back M.D. [phone] [place] [phone] PCP - General Family Medicine 12/08/23 documented as of this encounter
--- OUTSIDE RECORDS SUMMARY | 2024-04-21 13:42 | XMS_ITS | Encounter Summary ---
Author Organization [facility] Address [address] [place] [address] Care Team Providers Care Flooring Mechanic Name Role Phone Marianela Back M.D. Primary Care Provider [phone]- [phone] Reason for Visit * Reason Onset Date Comments Colonoscopy 01/23/2024 Encounter Details Date Type Department Care Team (Late st Contact Info) Description 01/23/2024 Clinical Communication Department of Family Medicine, [facility], in [address] [phone] Marianela Back M.D. [address] [place] [phone] Colonoscopy Social History Tobacco Use Types Packs/Day Years Used Date Smoking Tobacco: Never Smokeless Tobacco: Never Alcohol Use Standard Drinks/Week Comments Yes 2 (1 standard drink = 0.6 oz pur e alcohol) monthly [facility] Utilities Answer Date Recorded In the past 12 months has [employer], gas, oil, or water [email or web address] threatened to shut off services in your [...] your living situation today? I have a [facility] place to live 12/18/2023 Sex and Gender Information Value Date Recorded Sex Assigned at Female 12/18/2023 8:55 AM DOOR TO DOOR FUNDRAISING COLLECTOR Gender Identity Female 05/21/2018 4:12 PM CDT Sexual Orientation Straight 05/21/2018 4: 12 PM CDT documented as of this encounter Plan of Treatment Upcoming Encounters Date Type Department Care Team (Late st Contact Info) Description 06/16/2024 2:45 PM CDT Telemedicine Department of Allergy in [address] [phone] Araceli Fierro M.D. [address] [place] [phone] Discharge Disposition: Home or Self Care documented as of this encounter Visit Diagnoses Not on filedocumented in this encounter Additional Health Concerns Assessment Noted Time PHQ-9 Depression Total Score: 11 024 12:44 PM DOOR TO DOOR FUNDRAISING COLLECTOR documented as of this encounter Care Teams Flooring Mechanic Relationship Specialty Start Date End Date Marianela Back M.D. [address] [place] [phone] PCP - General Family Medicine 12/08/23 documented as of this encounter
--- OUTSIDE RECORDS SUMMARY | 2024-04-21 13:42 | XMS_ITS | Clinical Summary ---
Author Organization [facility] Address [address] [place] [address] Care Team Providers Care Pilot Boat Captain Name Role Phone Marianela Back M.D. Primary Care Provider +1- [phone] Source Comments Patient records contain information from all sites at [facility]. For routine questions regarding patient records, call [phone] during business hours, M-F 8:00 AM - 5:00 PM Central Time. Record requests for emergency care only can be directed to [phone] at any time.[facility] Allergies Active Allergy Reactions Criticality Noted Date Comments Aripiprazole Nausea Only 03/27/2009 Quetiapine Other (see comments) 03/27/2009 Dizziness Ziprasidone Hcl Itching 03/27/2009 Medications Medication Sig Dispensed Refills Start Date End Date Status MULTIVITAMIN ORAL Take by mouth daily. 08/07/2012 Active ibuprofen (ADVIL,MOTRIN) 600 mg tablet Take 1 tablet (600 mg total) by mouth 3 (three) times a day. 100 tablet 11 05/21/2018 Active Additional Information Patient taking differently:600 mg oralEvery 6 hours PRN, Reported on 01/29/2022 levothyroxine (SYNTHROID, LEVOTHROID) 75 mcg tablet Take 1 tablet (75 mcg total) by mouth once daily. 90 tablet 3 09/07/2021 Active clonazePAM (KlonoPIN) 1 mg tabletIndications: Anxiety Take 1 tablet (1 mg total) by mouth 2 (two) times a day. This is a decrease 60 tablet 2 04/18/2022 Active Additional Information Patient taking differently:1 mg oral 2 times daily,(No instructions reported), Informant: Self, Reported on 12/24/2023 cetirizine (ZyrTEC) 10 mg tablet Take 10 mg by mouth daily. Active lithium carbonate (ESKALITH) 150 mg capsule Take 150 mg by mouth. 1 capsule (150 mg) by mouth every evening with one 300 mg capsule for a total of 450 mg. 11/24/2023 Active lithium carbonate (ESKALITH) 300 mg capsule Take 300 mg by mouth. Take 2 capsules by mouth every morning and 1 capsule every evening. 11/19/2023 Active traZODone (DESYREL) 100 mg tablet Take 100 mg by mouth at bedtime as needed for sleep. Active polyethylene glycol-electrolyte s (GoLYTELY) 236-22.74-6.74 -5.86 gram solution Drink 1st portion of prep at 6 PM the evening before. 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 12/24/2017 Hypothyroidism 10/23/2018 Insomnia Mental Disorder Related 10/22/2018 Adjustment Disorder With Depressed Mood 10/22/20 18 Presbyopia 01/14/2017 Carpal Tunnel Syndrome Right 03/26/2016 Myopia Bilateral 12/14/2015 High Risk Human Papillomavir us Deoxyribonucleic Acid Test Positive 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/27/2015 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 Overview: PAP SMEAR 05/21/2018 = NEGATIVE/HPV OTHER HR TYPES POSITIVE ( REC PAP/HPV 1 YEAR ) PAP SMEAR 04/03/2017 = NEGATIVE/HPV NEGATIVE ( REC PAP/HPV 1 YEAR ) PAP SMEAR 04/01/2016 = NEGATIVE/HPV OTHER HR TYPES POSITIVE ( REC COLP ) COLP 04/24/2016 = EYAL 1 ( REC REPEAT PAP/HPV 1 YEA R ) PAP SMEAR 03/13/2015 = LGSIL/HPV OTHER HR TYPES POSITIVE ( REC COLP ) COLP 04/04/2015 = EYAL 1 ( REC REPEAT PAP/HPV 1 YEAR ) PAP SMEAR 03/09/2014 = NEGATIVE/HPV OTHER HR TYPES POSITIVE ( REC PAP/HPV 1 YEAR ) Anxiety 02/07/2012 Bipolar I Disorder 03/23/2009 Overview: Bipolar disorder, unspecified Resolved Problems Problem Noted Date Diagnosed Date Resolved Date Sinusitis 12/24/2023 12/24/2023 Other Psychoactive Substance Mild Use Disorder (Abuse) In Remission 10/23/2018 12/24/2023 Alcohol Moderate Or Severe U se Disorder (Dependence) Uncomplicated 10/23/2018 12/24/2023 Bipolar I Manic One Episode Moderate 08/27/2016 07/10/2017 Overview: Bipolar I Manic One Episode Moderate Bipolar I Manic One Episode Mild 07/30/2016 07/10/2017 Overview: Bipolar I Manic One Episode Mild Hypothyroidism 03/23/2009 09/26/2021 Encounters Date Type Department Care Team Description 02/06/2024 Clinical Communication Department of [facility], [facility], [address] [phone] Marianela Back M.D. Referral-Psychiatry 01/23/2024 Clinical Communication Department of [facility], [facility], [address] [phone] Marianela Back M.D. Colonoscopy from Last 3 Months Immunizations Name Administration Dates Next Due DTaP (Infanrix, Tripedia) 06/20/2008 Influenza, Quadrivalent, Adjuvanted, Preservativ e Free 10/29/2022 Influenza, Unspecified 09/19/2014,08/17/2012 OPV 08/27/1973 SARS-COV-2 (COVID-19) - MODE RNA (12 YEARS AND OLDER) [id number] 12/24/2023 SARS-COV-2 (COVID-19) - PFIZ ER (Discontinued)(12 years or older) 09/07/2021 Td (Adult), adsorbed 08/20/1995,03/05/1972 Td Preservative Free (TENIVAC, DECAVAC) 05/21/20 18 Tdap 06/20/2008 influenza vaccine quad (FLUZ ONE/FLUARIX) (6 months and older)(PF) 10/29/2022,10/22/2018 Family History Medical History Relation Name Comments Depression Daughter Adenomatous polyp of colon Father Aneurysm Father Cancer Father Cataracts Father Colon cancer Father Deep vein thrombosis Father Diabetes Father Gout Father Hypertension Father Breast cancer Maternal Grandmother Anxiety depression Mother Breast cancer Mother Cancer Mother Depression Mother Eczema Mother Anxiety depression Sister Breast cancer Sister Irritable bowel syndrome Sister Stroke Sister Relation Name Status Comments Daughter Father Maternal Grandmother Mother Sister Social History Tobacco Use Types Packs/Day Years Used Date Smoking Tobacco: Never Smokeless Tobacco: Never Tobacco Cessation:Counseling Given: Not Answered Alcohol Use Standard Drinks/Week Comments Yes 2 (1 standard drink = 0.6 oz pur e alcohol) monthly [facility] Utilities Answer Date Recorded In the past 12 months has th e [employer], gas, oil, or water [employer] threatened to shut off services in your [...] your living situation today? I have a [facility] place to live 12/18/2023 Sex and Gender Information Value Date Recorded Sex Assigned at Female 12/18/2023 8:55 AM CHLORINE CELLS OPERATOR Gender Identity Female 05/21/2018 4:12 PM CDT Sexual Orientation Straight 05/21/2018 4: 12 PM CDT Last Filed Vital Signs Vital Sign Reading Time Taken Comments Blood Pressure 130/82 12/29/2023 12:42 PM CHLORINE CELLS OPERATOR Pulse 70 12/29/2023 12:42 PM CHLORINE CELLS OPERATOR Temperature 36.9 ??C (98.4 ??F) 12/24/2023 1 1:57 AM CHLORINE CELLS OPERATOR Respiratory Rate 16 06/02/2023 1:48 PM CDT Oxygen Saturation 98% 12/24/2023 11: 57 AM CHLORINE CELLS OPERATOR Inhaled Oxygen Concentration - - Weight 79.4 kg (175 lb 0.7 oz) 12/29/19 12:42 PM CHLORINE CELLS OPERATOR with shoes Height 166.5 cm (5' 5.55) 12/29/2023 1 2:42 PM CHLORINE CELLS OPERATOR with shoes Body Mass Index 28.64 12/29/2023 12:42 PM CHLORINE CELLS OPERATOR Plan of Treatment Upcoming Encounters Date Type Department Care Team (Late st Contact Info) Description 06/16/2024 2:45 PM CDT Telemedicine Department of Allergy in [place], [place] [address] [place] [phone] Araceli Fierro M.D. [address] [place] [phone] Discharge Disposition: Home or Self Care Health Maintenance Due Date Last Done Comments Bone Density Scan (Osteoporo sis Screen) 1956 CT Colonography 1955 Cologuard 1955 Pneumococcal vaccine (65+ ye ars) (1 of 2 - PCV) 1962 Zoster Vaccines (1 of 2) 2006 Colonoscopy 04/09/2021 04/09/2016, 04/09/2016 Colorectal Cancer Surveillance 04/09/2021 Mammogram 03/13/2022 03/13/2021, 04/2 11/2020, 03/07/2021, Additional history exists Influenza Vaccine (#1) 2023 , 10/29/2022, 10/22/2018, Additional history exists COVID-19 Vaccine (2022-2 4 season) 2024 12/24/2023, 10/29/2022, 07/17/2022, Additional history exists Thyroid Stimulating Hormone (TSH) test for thyroid function 12/24/2024 12/24/2023, 10/29/2022, 12/03/2021, Additional history exists Visit: Annual, age 65+ (or Medicare and <65) 12/24/2024 12/24/2023 Visit: Medicare Annual Wellness 12/25/2024 Fasting Glucose for Diabetes Screening 04/24/2025 04/24/2022, 12/03/2021, 05/11/2018, Additional history exists DTaP,Tdap,and Td Vaccines (5 - Td or Tdap) 05/21/2028 05/21/2018, 06/20/2008, 06/20/2008, Additional history exists Cervical Cancer Screening Discontinued 2019, 05/21/2018, 05/21/2018, Additional history exists Fall Risk Screen (Annual) Completed 12/24/2023 Depression Screening (Annual PHQ-2) Completed 12/29/2023, 12/24/2023 Procedures Procedure Name Priority Date/Time Associated Diagnosis Comments THYROID FUNCTION CASCADE, S Routine 12/24/2023 12:52 PM CHLORINE CELLS OPERATOR Hypothyroidism EXTI COMPREHENSIVE METABOLIC PANEL, S/P Routine 04/24/2022 2:38 PM CDT BI BREAST SCREENING BILATERAL WITH TOMOSYNTHESIS RAD - Routine (most inpatients and all outpatients) 03/13/2021 1:50 PM CDT PATHOLOGY GRINDING WHEEL OPERATOR CYTOLOGY Routine 05/21/2018 11:21 AM CDT Pap Smear Examination COLONOSCOPY Routine 04/09/2016 from Last 3 Months or Most Recently Relevant to Health Maintenance Results * Thyroid Function Boyd (12/24/2023 12:52 PM CHLORINE CELLS OPERATOR) TSH, Sensitive 0.8 0.3 - 4.2 mIU/L 12/24/2023 1:51 PM CHLORINE CELLS OPERATOR CNFL Blood (Blood, Venous) 12/24/2023 12:52 PM CHLORINE CELLS OPERATOR 12/24/2023 12:53 PM CHLORINE CELLS OPERATOR Marianela Back M.D. LAB BLOOD ADD-ON [facility] [address] [place] [phone], [facility] [place] [address] * Pathology GRINDING WHEEL OPERATOR Cytology (05/21/2018 11:21 AM CDT) Pathologist [facility] PATHOLOGY GRINDING WHEEL OPERATOR CYTOLOGY Patient Name: LEXI MCELROY MR#: [id number] Location: ??[facility] Date Reported: ??06/05/2018 15:13 Specimen #[id number] Other Clinical Conditions: Pap Type: Routine Pap Clinical History/Status (Select all that apply): Post Menopausal Ancillary Testing (Select all that apply): HPV with Genotyping, PCR, ThinPrep (order separately in [facility] [id number]) Source: ThinPrep Liquid Based Pap Test, cervical/endocer vical Final Diagnosis ThinPrep Liquid Based Pap Test, cervical/endocer vical: ?Satisf actory for evaluation. Squamous Epithelial Cell Abnormality Atypical squamous cells of undetermined significance (ASC-US). Diagnosis Comment High Risk HPV: ??Negative Negative for High Risk HPV by nucleic acid amplification. ??The following High Risk HPV types were not detected: ??16,18,31,33,35 ,39,45,51,52,56, 58,59,66 and 68. ?? CJS 06/01/2018 Electronically Signed Out ? Valerie Patricia MD ([id number]) Date Reported:06/05/20 18 15:[address], ??[place] [address] CPT Code(s) A: 766019025, 33057 The cervico-vaginal smear is a screening test for cervical cancer and its precursors. ??As with all screening tests, it has an irreducible false negative and false positive rate. ??Regular testing is the best way to decrease these rates when used in conjunction with other established clinical practices for evaluating patients for cervical disease. ??Consider additional studies when the results of this testing do not correlate with the clinical signs and symptoms of disease. ??The cervico-vaginal smear is not a screening test for detecting endometrial pathology. JESUS ZUÑIGA Thin Prep Vial (Cervix/Endocerv ix) 05/21/2018 11:21 AM CDT 05/25/2018 11:21 AM CDT Betty Argueta M.D. LAB PAP COPATH ORDERABLES Performing Organization Address City/State/[facility] Co sd Phone Number JESUS ZUÑIGA [address] [place] [address], [facility] * Colonoscopy (04/09/2016) EXT Colonoscopy Abnormal - See Scanned Report for Details Normal - See Scanned Report for Details, HIMS - Report Received and Scanned Comment:Colonoscopy done in- house. Recall 5 years. Historical Provider GI PROCEDURE ORDERAB LES from Last 3 Months or Most Recently Relevant to Health Maintenance Care Teams Pilot Boat Captain Relationship Specialty Start Date End Date Marianela Back M.D. HENRRYI: [phone] [address] [place] [phone] PCP - General Family Medicine 12/08/23
--- OUTSIDE RECORDS SUMMARY | 2024-04-21 13:42 | XMS_ITS | Encounter Summary ---
Author Organization [facility] Address [address] [place] [address] Care Team Providers Care Theater Technician Name Role Phone Marianela Back M.D. Primary Care Provider +1- [phone] Encounter Details Date Type Department Care Team (Late st Contact Info) Description 12/14/2015 Historical Ophthalmology [facility] Eduardo Todd O.D. [address] [place] [phone] Social History Tobacco Use Types Packs/Day Years Used Date Smoking Tobacco: Never Assessed Sex and Gender Information Value Date Recorded Sex Assigned at Female 12/18/2023 8:55 AM ENTRY LEVEL CIVIL ENGINEER Gender Identity Female 05/21/2018 4:12 PM CDT Sexual Orientation Straight 05/21/2018 4: 12 PM CDT documented as of this encounter Progress Notes * Eduardo Todd O.D. - 12/14/2015 4:14 PM CST Contact Lens Exam HISTORY OF PRESENT ILLNESS vision isn't that good with contacts but likes to wear them. CDM Reports - EYECL Id: [id number] Status: Fnl documented in this encounter Plan of Treatment Upcoming Encounters Date Type Department Care Team (Late st Contact Info) Description 06/16/2024 2:45 PM CDT Telemedicine Department of Allergy in [place], [place] [address] [facility] [phone] Araceli Fierro M.D. [address] [place] [phone] Discharge Disposition: Home or Self Care documented as of this encounter Visit Diagnoses Not on filedocumented in this encounter Additional Health Concerns Infection Onset Date Last Indicated Resolved Time COVID19 Pending 11/18/2020 11/18/2020 11/18/2020 1 1:59 AM ENTRY LEVEL CIVIL ENGINEER COVID19 Pending 11/18/2020 11/18/2020 11/18/2020 6 :45 PM ENTRY LEVEL CIVIL ENGINEER COVID19 Pending 10/15/2021 10/15/2021 10/15/2021 8 :23 PM ENTRY LEVEL CIVIL ENGINEER COVID19 Pending 01/29/2022 01/29/2022 01/29/2022 1 :59 PM CDT COVID19 Pending 03/28/2022 03/28/2022 03/28/2022 1 0:49 AM CDT COVID19 Pending 03/28/2022 03/28/2022 03/28/2022 1 :14 PM CDT Assessment Noted Time PHQ-9 Depression Total Score: 0 03/13/20 15 3:14 PM CDT documented as of this encounter Care Teams Theater Technician Relationship Specialty Start Date End Date Marianela Back M.D. [address] [place] [phone] PCP - General Family Medicine 12/08/23 documented as of this encounter
--- OUTSIDE RECORDS SUMMARY | 2024-04-21 13:42 | XMS_ITS | Referral Summary ---
Author Organization [facility] Address [address] [place] [address] Care Team Providers Care Auto Club Travel Counselor Name Role Phone Marianela Back M.D. Primary Care Provider +1- [phone] Source Comments Patient records contain information from all sites at [facility]. For routine questions regarding patient records, call [phone] during business hours, M-F 8:00 AM - 5:00 PM Central Time. Record requests for emergency care only can be directed to [phone] at any time.[facility] Encounters Date Type Department Care Team Description 02/06/2024 Clinical Communication Department of Family Medicine, [facility], in [address] [phone] Marianela Back M.D. Referral-Psychiatry 01/23/2024 Clinical Communication Department of Family Medicine, [facility], in [address] [phone] Marianela Back M.D. Colonoscopy from Last 3 Months Allergies Active Allergy Reactions Criticality Noted Date [...] Manic One Episode Mild Hypothyroidism 03/23/2009 09/26/2021 Immunizations Name Administration Dates Next Due DTaP (Infanrix, Tripedia) 06/20/2008 Influenza, Quadrivalent, Adjuvanted, Preservativ e Free 10/29/2022 Influenza, Unspecified 09/19/2014,08/17/2012 OPV 08/27/1973 SARS-COV-2 (COVID-19) - MODE RNA (12 YEARS AND OLDER) [id number] 12/24/2023 SARS-COV-2 (COVID-19) - PFIZ ER (Discontinued)(12 years or older) 09/07/2021 Td (Adult), adsorbed 08/20/1995,03/05/1972 Td Preservative Free (TENIVAC, DECAVAC) 05/21/20 18 Tdap 06/20/2008 influenza vaccine quad (FLUZ ONE/FLUARIX) (6 months and older)(PF) 10/29/2022,10/22/2018 Social History Tobacco Use Types Packs/Day Years Used Date Smoking Tobacco: Never Smokeless Tobacco: Never Tobacco Cessation:Counseling Given: Not Answered Alcohol Use Standard Drinks/Week Comments Yes 2 (1 standard drink = 0.6 oz pur e alcohol) monthly [facility] Utilities Answer Date Recorded In the past 12 months has e electric, gas, oil, or water company [...] your living situation today? I have a [facility] place to live 12/18/2023 Sex and Gender Information Value Date Recorded Sex Assigned at Female 12/18/2023 8:55 AM BUSINESS PERFORMANCE SPECIALIST Gender Identity Female 05/21/2018 4:12 PM CDT Sexual Orientation Straight 05/21/2018 4: 12 PM CDT Last Filed Vital Signs Vital Sign Reading Time Taken Comments Blood Pressure 130/82 12/29/2023 12:42 PM BUSINESS PERFORMANCE SPECIALIST Pulse 70 12/29/2023 12:42 PM BUSINESS PERFORMANCE SPECIALIST Temperature 36.9 ??C (98.4 ??F) 12/24/2023 1 1:57 AM BUSINESS PERFORMANCE SPECIALIST Respiratory Rate 16 06/02/2023 1:48 PM CDT Oxygen Saturation 98% 12/24/2023 11: 57 AM BUSINESS PERFORMANCE SPECIALIST Inhaled Oxygen Concentration - - Weight 79.4 kg (175 lb 0.7 oz) 12/29/19 12:42 PM BUSINESS PERFORMANCE SPECIALIST with shoes Height 166.5 cm (5' 5.55) 12/29/2023 1 2:42 PM BUSINESS PERFORMANCE SPECIALIST with shoes Body Mass Index 28.64 12/29/2023 12:42 PM BUSINESS PERFORMANCE SPECIALIST Plan of Treatment Upcoming Encounters Date Type Department Care Team (Late st Contact Info) Description 06/16/2024 2:45 PM CDT Telemedicine Department of Allergy in [address] [phone] Araceli Fierro M.D. [address] [place] [phone] Discharge Disposition: Home or Self Care Procedures Procedure Name Priority Date/Time Associated Diagnosis Comments THYROID FUNCTION CASCADE, S Routine 12/24/2023 12:52 PM BUSINESS PERFORMANCE SPECIALIST Hypothyroidism EXTI COMPREHENSIVE METABOLIC PANEL, S/P Routine 04/24/2022 2:38 PM CDT BI BREAST SCREENING BILATERAL WITH TOMOSYNTHESIS RAD - Routine (most inpatients and all outpatients) 03/13/2021 1:50 PM CDT PATHOLOGY BOOKSTORE CLERK CYTOLOGY Routine 05/21/2018 11:21 AM CDT Pap Smear Examination COLONOSCOPY Routine 04/09/2016 from Last 3 Months or Most Recently Relevant to Health Maintenance Results * Thyroid Function Stark (12/24/2023 12:52 PM BUSINESS PERFORMANCE SPECIALIST) TSH, Sensitive 0.8 0.3 - 4.2 mIU/L 12/24/2023 1:51 PM BUSINESS PERFORMANCE SPECIALIST CNFL Blood (Blood, Venous) 12/24/2023 12:52 PM BUSINESS PERFORMANCE SPECIALIST 12/24/2023 12:53 PM BUSINESS PERFORMANCE SPECIALIST Marianela Back M.D. LAB BLOOD ADD-ON [facility] [address] [place] [id number], RUST CNFL [facility] [place] [address] * Pathology BOOKSTORE CLERK Cytology (05/21/2018 11:21 AM CDT) Pathologist [facility] PATHOLOGY BOOKSTORE CLERK CYTOLOGY Patient Name: LEXI MCELROY MR#: [id number] Location: ??[facility] Date Reported: ??06/05/2018 15:13 Specimen #[id number] Other Clinical Conditions: Pap Type: Routine Pap Clinical History/Status (Select all that apply): Post Menopausal Ancillary Testing (Select all that apply): HPV with Genotyping, PCR, ThinPrep (order separately in [facility] [id number]) Source: ThinPrep Liquid Based Pap Test, cervical/endocer [...] Patricia MD ([id number]) Date Reported:06/05/20 18 15:[address], ??[place] [address] CPT Code(s) A: 183040056, 99995 The cervico-vaginal smear is a screening test [...] Betty Argueta M.D. LAB PAP COPATH ORDERABLES JESUS ZUÑIGA [address] [place] [address], RUST * Colonoscopy (04/09/2016) EXT Colonoscopy Abnormal - See Scanned Report for Details Normal - See Scanned Report for Details, HIMS - Report Received and Scanned Comment:Colonoscopy done in- house. Recall 5 years. Historical Provider GI PROCEDURE ORDERAB LES from Last 3 Months or Most Recently Relevant to Health Maintenance Care Teams Auto Club Travel Counselor Relationship Specialty Start Date End Date Marianela Back M.D. HENRRYI: [phone] [address] [place] [phone] PCP - General Family Medicine 12/08/23
--- OUTSIDE RECORDS SUMMARY | 2024-04-21 13:42 | XMS_ITS | Encounter Summary ---
Author Organization [facility] Address [address] [place] [address] Care Team Providers Care Lens Dotter Name Role Phone Marianela Back M.D. Primary Care Provider +1- [phone] Encounter Details Date Type Department Care Team (Late st Contact Info) Description 12/14/2015 Historical Ophthalmology [facility] Eduardo Todd O.D. [address] [place] [phone] Social History Tobacco Use Types Packs/Day Years Used Date Smoking Tobacco: Never Assessed Sex and Gender Information Value Date Recorded Sex Assigned at Female 12/18/2023 8:55 AM RESIDENTIAL SALES MANAGER Gender Identity Female 05/21/2018 4:12 PM CDT Sexual Orientation Straight 05/21/2018 4: 12 PM CDT documented as of this encounter Progress Notes * Eduardo Todd O.D. - 12/14/2015 3:40 PM CST Eye General CHIEF COMPLAINT comp HISTORY OF PRESENT ILLNESS starr 09/2014 cl's wearer monovision can't see well near with them IMPRESSION / REPORT / PLAN #1 Complete Eye Exam today Internally & Externally both eyes healthy Glaucoma pressures normal both eyes #2 Slight changes in current eyeglass prescription gave a copy of new eyeglass RX today and scl RX Recheck eye health and RX in 1 year DIAGNOSIS #1 Complete Eye Exam today #2 Slight changes in current eyeglass prescription CDM Reports - EYEGEN Id: [id number] Status: Fnl documented in this encounter Plan of Treatment Upcoming Encounters Date Type Department Care Team (Late st Contact Info) Description 06/16/2024 2:45 PM CDT Telemedicine Department of Allergy in [address] [phone] Araceli Fierro M.D. [address] [place] [phone] Discharge Disposition: Home or Self Care documented as of this encounter Visit Diagnoses Not on filedocumented in this encounter Additional Health Concerns Infection Onset Date Last Indicated Resolved Time COVID19 Pending 11/18/2020 11/18/2020 11/18/2020 1 1:59 AM RESIDENTIAL SALES MANAGER COVID19 Pending 11/18/2020 11/18/2020 11/18/2020 6 :45 PM RESIDENTIAL SALES MANAGER COVID19 Pending 10/15/2021 10/15/2021 10/15/2021 8 :23 PM RESIDENTIAL SALES MANAGER COVID19 Pending 01/29/2022 01/29/2022 01/29/2022 1 :59 PM CDT COVID19 Pending 03/28/2022 03/28/2022 03/28/2022 1 0:49 AM CDT COVID19 Pending 03/28/2022 03/28/2022 03/28/2022 1 :14 PM CDT Assessment Noted Time PHQ-9 Depression Total Score: 0 03/13/20 15 3:14 PM CDT documented as of this encounter Care Teams Lens Dotter Relationship Specialty Start Date End Date Marianela Back M.D. [id number] [address] [place] [phone] PCP - General Family Medicine 12/08/23 documented as of this encounter
--- OUTSIDE RECORDS SUMMARY | 2024-04-21 13:42 | XMS_ITS | Encounter Summary ---
Author Organization [facility] Address [address] [place] [address] Care Team Providers Care Regional Property Manager Name Role Phone Marianela Back M.D. Primary Care Provider +1- [phone] Encounter Details Date Type Department Care Team (Late st Contact Info) Description 04/27/2015 Historical Ophthalmology [facility] Eduardo Todd O.D. [address] [place] [phone] Social History Tobacco Use Types Packs/Day Years Used Date Smoking Tobacco: Never Assessed Sex and Gender Information Value Date Recorded Sex Assigned at Female 12/18/2023 8:55 AM LEATHER TANNER Gender Identity Female 05/21/2018 4:12 PM CDT Sexual Orientation Straight 05/21/2018 4: 12 PM CDT documented as of this encounter Progress Notes * Eduardo Todd O.D. - 04/27/2015 1:53 PM CDT Contact Lens Exam HISTORY OF PRESENT ILLNESS recheck, contacts fit well and vision is good IMPRESSION / REPORT / PLAN add - to dist RT scl and + to near LE scl CDM Reports - EYECL Id: [id number] Status: Fnl documented in this encounter Plan of Treatment Upcoming Encounters Date Type Department Care Team (Late st Contact Info) Description 06/16/2024 2:45 PM CDT Telemedicine Department of Allergy in [place], [place] [address] [place] [phone] Araceli Fierro M.D. [address] [place] [phone] Discharge Disposition: Home or Self Care documented as of this encounter Visit Diagnoses Not on filedocumented in this encounter Additional Health Concerns Infection Onset Date Last Indicated Resolved Time COVID19 Pending 11/18/2020 11/18/2020 11/18/2020 1 1:59 AM LEATHER TANNER COVID19 Pending 11/18/2020 11/18/2020 11/18/2020 6 :45 PM LEATHER TANNER COVID19 Pending 10/15/2021 10/15/2021 10/15/2021 8 :23 PM LEATHER TANNER COVID19 Pending 01/29/2022 01/29/2022 01/29/2022 1 :59 PM CDT COVID19 Pending 03/28/2022 03/28/2022 03/28/2022 1 0:49 AM CDT COVID19 Pending 03/28/2022 03/28/2022 03/28/2022 1 :14 PM CDT Assessment Noted Time PHQ-9 Depression Total Score: 0 03/13/20 15 3:14 PM CDT documented as of this encounter Care Teams Regional Property Manager Relationship Specialty Start Date End Date Marianela Back M.D. [address] [place] [phone] PCP - General Family Medicine 12/08/23 documented as of this encounter
--- OUTSIDE RECORDS SUMMARY | 2024-04-21 13:42 | XMS_ITS | Encounter Summary ---
Author Organization [facility] Address [address] [place] [address] Care Team Providers Care Automotive Product Specialist Name Role Phone Marianela Back M.D. Primary Care Provider +1- [phone] Encounter Details Date Type Department Care Team (Late st Contact Info) Description 01/14/[address] [facility] Eduardo Todd O.D. [address] [place] [phone] Social History Tobacco Use Types Packs/Day Years Used Date Smoking Tobacco: Never Sex and Gender Information Value Date Recorded Sex Assigned at Female 12/18/2023 8:55 AM MUSIC MIXER Gender Identity Female 05/21/2018 4:12 PM CDT Sexual Orientation Straight 05/21/2018 4: 12 PM CDT documented as of this encounter Progress Notes * Eduardo Todd O.D. - 01/14/2017 1:33 PM CST Contact Lens Exam HISTORY OF PRESENT ILLNESS likes fit not vision of current contacts . last wore cl's 2 days ago CDM Reports - EYECL Id: [id number] Status: Fnl documented in this encounter Plan of Treatment Upcoming Encounters Date Type Department Care Team (Late st Contact Info) Description 06/16/2024 2:45 PM CDT Telemedicine Department of Allergy in [address] [place] [phone] Araceli Fierro M.D. [address] [place] [phone] Discharge Disposition: Home or Self Care documented as of this encounter Visit Diagnoses Not on filedocumented in this encounter Additional Health Concerns Infection Onset Date Last Indicated Resolved Time COVID19 Pending 11/18/2020 11/18/2020 11/18/2020 1 1:59 AM MUSIC MIXER COVID19 Pending 11/18/2020 11/18/2020 11/18/2020 6 :45 PM MUSIC MIXER COVID19 Pending 10/15/2021 10/15/2021 10/15/2021 8 :23 PM MUSIC MIXER COVID19 Pending 01/29/2022 01/29/2022 01/29/2022 1 :59 PM CDT COVID19 Pending 03/28/2022 03/28/2022 03/28/2022 1 0:49 AM CDT COVID19 Pending 03/28/2022 03/28/2022 03/28/2022 1 :14 PM CDT Assessment Noted Time PHQ-9 Depression Total Score: 0 03/13/20 15 3:14 PM CDT documented as of this encounter Care Teams Automotive Product Specialist Relationship Specialty Start Date End Date Marianela Back M.D. [address] [place] [phone] PCP - General Family Medicine 12/08/23 documented as of this encounter
--- OUTSIDE RECORDS SUMMARY | 2024-04-21 13:42 | XMS_ITS | Encounter Summary ---
Author Organization [facility] Address [address] [place] [address] Care Team Providers Care Orthodontic Assistant Name Role Phone Marianela Back M.D. Primary Care Provider +1- [phone] Encounter Details Date Type Department Care Team (Late st Contact Info) Description 01/14/2017 Historical Ophthalmology [facility] Eduardo Todd O.D. [address] [place] [phone] Social History Tobacco Use Types Packs/Day Years Used Date Smoking Tobacco: Never Sex and Gender Information Value Date Recorded Sex Assigned at Female 12/18/2023 8:55 AM ROVING FRAME TENDER Gender Identity Female 05/21/2018 4:12 PM CDT Sexual Orientation Straight 05/21/2018 4: 12 PM CDT documented as of this encounter Progress Notes * Eduardo Todd O.D. - 01/14/2017 1:06 PM CST Eye General CHIEF COMPLAINT exam and new cl rx, having problems seeing near and distance with current contacts IMPRESSION / REPORT / PLAN #1 Complete Eye Exam today Internally & Externally both eyes healthy Glaucoma pressures normal both eyes #2 No changes in current eyeglass prescription\ gave a copy of new eyeglass RX today Recheck eye health and RX in 1 year DIAGNOSIS #1 Complete Eye Exam today #2 No changes in current eyeglass prescription\ CDM Reports - EYEGEN Id: [id number] Status: Fnl documented in this encounter Plan of Treatment Upcoming Encounters Date Type Department Care Team (Late st Contact Info) Description 06/16/2024 2:45 PM CDT Telemedicine Department of Allergy in [address] [phone] Araceli Fierro M.D. [address] [place] [phone] Discharge Disposition: Home or Self Care documented as of this encounter Visit Diagnoses Not on filedocumented in this encounter Additional Health Concerns Infection Onset Date Last Indicated Resolved Time COVID19 Pending 11/18/2020 11/18/2020 11/18/2020 1 1:59 AM ROVING FRAME TENDER COVID19 Pending 11/18/2020 11/18/2020 11/18/2020 6 :45 PM ROVING FRAME TENDER COVID19 Pending 10/15/2021 10/15/2021 10/15/2021 8 :23 PM ROVING FRAME TENDER COVID19 Pending 01/29/2022 01/29/2022 01/29/2022 1 :59 PM CDT COVID19 Pending 03/28/2022 03/28/2022 03/28/2022 1 0:49 AM CDT COVID19 Pending 03/28/2022 03/28/2022 03/28/2022 1 :14 PM CDT Assessment Noted Time PHQ-9 Depression Total Score: 0 03/13/20 15 3:14 PM CDT documented as of this encounter Care Teams Orthodontic Assistant Relationship Specialty Start Date End Date Marianela Back M.D. [address] [place] [phone] PCP - General Family Medicine 12/08/23 documented as of this encounter
== END 2024-04-21 13:40 | disposition home or self-care (01) ==
PROVIDERS: PCP Internal Medicine; Visit Provider Internal Medicine
DX: E03.9 Hypothyroidism, unspecified (principal); Z13.228 Encounter for screening for other metabolic disorders
CPT/HCPCS: 80053; 84443

== ENCOUNTER 2024-06-05 20:22 | Emergency (ER) | payer OTHER, SELFPAY ==
[2024-06-05 20:28] VITALS: BP 139/93; PULSE 76; RESP 16; TEMP 36.4; O2SAT 98; BMI 28.2
--- NOTE | 2024-06-05 20:56 | ED.CHESTPAIN ---
HPI - Chest Pain General Chief Complaint: Chest Pain Stated Complaint: chest pain Time Seen by Provider: 06/05/24 20:37 History of Present Illness HPI narrative: This 69-year-old female comes in with her daughter. She is reporting chest discomfort on and off over the past 4 days or so. She states that the pain started across her lower ribs and now is the more along her sternum. She states that she can make this pain hurt by pressing along these areas and with certain movements including bending forward. She does not report any nausea, vomiting, lightheadedness, shortness of breath, diaphoresis, or exercise intolerance. She does not have any cardiac risk factors. Related Data Home Medications ?Medication ?Instructions ?Recorded ?Confirmed famotidine 20 mg tablet 20 mg PO .prn 06/11/23 05/28/24 ibuprofen 200 mg capsule 600 mg PO Q4H PRN 11/13/23 05/28/24 Previous Rx's ?Medication ?Instructions ?Recorded levothyroxine 75 mcg tablet 75 mcg PO DAILY Hypothyroidism #90 06/11/23 tabs lithium carbonate 150 mg capsule 150 mg PO QDAY #90 caps 08/01/23 lithium carbonate 300 mg capsule 300 mg PO BID Bipolar Disorder #90 08/01/23 caps trazodone 100 mg tablet 100 mg PO HS PRN insomnia #90 tabs 12/09/23 ibuprofen 600 mg tablet 600 mg PO TID PRN pain #30 tabs 03/23/24 clonazepam 1 mg tablet 1 mg PO BID Bipolar #60 tabs 04/13/24 Allergies Allergy/AdvReac Type Severity Reaction Status Date / Time No Known Drug Allergies Allergy Verified 05/28/24 14:57 Review of Systems Status of ROS Reports: 10 or more systems reviewed and unremarkable except as noted in History and below Narrative Constitutional: No fevers, no weight gain or loss. Eyes: No discharge. No vision changes. HENT: No congestion, no sore throat, no ear pain. Cardiovascular: No palpitations. Respiratory: No shortness of breath, no wheezes, no cough. Gastrointestinal: No abdominal pain, no vomiting, no diarrhea. Genitourinary: No dysuria, no hematuria. Musculoskeletal: Normal range of motion. Skin: No rashes, no pruritis. Neurological: No dizziness, weakness, sensory change, speech change. Endo/Heme/Allergies: No bruising or bleeding. No polydipsia. Pysch: no suicidality, no anxiety, no insomnia. All other systems reviewed and are negative. [facility] Medical History (Updated 06/05/24 @ 21:00 by Timo Palencia MD) Cognitive dysfunction ?F09 - Unspecified mental disorder due to known physiological condition (ICD-10) Sinusitis ?J32.9 - Chronic sinusitis, unspecified (ICD-10) Hypothyroidism ?E03.9 - Hypothyroidism, unspecified (ICD-10) Bipolar 1 disorder ?F31.9 - Bipolar disorder, unspecified (ICD-10) Social History Smoking Status: Never smoker Second hand tobacco smoke exposure: No How often do you have a drink containing alcohol: monthly or less AUDIT-C Alcohol total score: 1 Non-prescribed substance use: denies use Little interest or pleasure in doing things: several days Feeling down, depressed, or hopeless: several days service: Yes Exam Narrative Exam Narrative: Constitutional: Well-developed, well-nourished, no acute distress. HEENT: Normocephalic, atraumatic. Neck: Normal range of motion. Nontender. Supple. Heart: Regular. No murmurs. Normal rate. Intact distal pulses. Chest: Chest discomfort is distinctly reproduced when palpating along the sternal border. Lungs: Clear to auscultation. No wheezes, rhonchi, or rales. Abdomen: Normal bowel sounds. Nontender. No rebound tenderness. Genitalia: Deferred. Back: No midline tenderness. Normal range of motion. Extremities: Normal range of motion. No injury. Skin: Intact. No rash. Warm. No erythema or pallor. Neurologic: No altered sensation. No weakness. Alert and oriented. Psychiatric: No suicidality. No anxiety or depression. No insomnia. Nursing notes and vitals signs are reviewed. Const Vital Signs, click to edit/add: Vital Signs - 24 hr 06/05/24 20:28 Temperature 97.6 F Pulse Rate [Pulse Oximeter] 76 Respiratory Rate 16 Blood Pressure [Right Upper Arm] 139/93 H Pulse Oximetry 98 Oxygen Delivery Method Room Air Course Vital Signs Vital signs: Initial Vital Signs Temperature 97.6 F 06/05/24 20:28 Temperature Source Temporal Artery Scan 06/05/24 20:28 Pulse Rate 76 06/05/24 20:28 Respiratory Rate 16 06/05/24 20:28 Blood Pressure 139/93 H 06/05/24 20:28 Blood Pressure Mean 108 H 06/05/24 20:28 Blood Pressure Position Sitting 06/05/24 20:28 Pulse Oximetry 98 06/05/24 20:28 Oxygen Delivery Method Room Air 06/05/24 20:28 Vital Signs Temperature 97.6 F 06/05/24 20:28 Pulse Rate 76 06/05/24 20:28 Respiratory Rate 16 06/05/24 20:28 Blood Pressure 139/93 H 06/05/24 20:28 Pulse Oximetry 98 06/05/24 20:28 Oxygen Delivery Method Room Air 06/05/24 20:28 Temperature 97.6 F 06/05/24 20:28 Pulse Rate 76 06/05/24 20:28 Respiratory Rate 16 06/05/24 20:28 Blood Pressure 139/93 H 06/05/24 20:28 Pulse Oximetry 98 06/05/24 20:28 Oxygen Delivery Method Room Air 06/05/24 20:28 MDM - Chest Pain MDM Narrative Medical decision making narrative: This patient comes in reporting reproducible chest discomfort as described above. She has a normal EKG. She is not exhibiting any signs or symptoms that her otherwise suspicious for heart or lung disease. Her pain is reproducible with palpation and with certain movements. This is strongly suggestive of chest wall pain. I did discuss and offer further lab and imaging studies which the patient declined at this time. ECG Data Attestation: I personally reviewed and interpreted this ECG as follows: Interpretation: Normal sinus rhythm. Rate is 67 beats per minute. There are no ST or T-wave abnormalities. Discharge Plan Discharge Clinical Impression: Acute chest wall pain Patient Disposition: Home, Self-Care Condition: Stable Additional Instructions: Continue current plans. Increase activity as tolerated. Follow up with MD return if worsening. Prescriptions: No Action levothyroxine 75 mcg tablet 75 mcg PO DAILY Qty: 90 3RF ibuprofen 200 mg capsule 600 mg PO Q4H PRN ibuprofen 600 mg tablet 600 mg PO TID PRN (Reason: pain) Qty: 30 0RF famotidine 20 mg tablet 20 mg PO .prn lithium carbonate 150 mg capsule 150 mg PO QDAY Qty: 90 3RF Rx Instructions: Take once per day in the evening with one 300mg lithium capsule for a total of 450 mg lithium carbonate 300 mg capsule 300 mg PO BID Qty: 90 3RF Rx Instructions: Take 2 capsules in the morning and 1 capsule in the evening with one 150 mg lithium capsule trazodone 100 mg tablet 100 mg PO HS PRN (Reason: insomnia) Qty: 90 3RF clonazepam 1 mg tablet 1 mg PO BID Qty: 60 2RF Follow Up/Referrals: Shaji Gillespie MD [Primary Care Provider] - Stand Alone Forms: [employer] Info Instructions
[2024-06-05 21:05] VITALS: BP 125/74; PULSE 71; RESP 16; TEMP 36.4; O2SAT 98
--- OUTSIDE RECORDS SUMMARY | 2024-06-05 21:11 | XMS_ITS | Clinical Summary ---
Author Organization [facility] Address [place], [place] [address] Care Team Providers Care Airline Stewardess Name Role Phone Amanda Vargas RN Unavailable [phone] Oxana Pedroza RN Unavailable [phone] Emily Angel RN Unavailable [phone] Pcp, No Primary Care Provider Unavailabl e [...] %) nasal sprayIndications:P ost-nasal drip Inhale 1 [place] into affected nostril(s) 3 times daily. [place] dose in each nostril. 30 mL 07/02/2022 [...] signed 10/29/2022 Overview: Signed 10-29-2022. Cedrick Vinson [facility] Psychiatry History of partial adherence to [...] Carpal tunnel syndrome 03/26/201607/17 Anxiety 02/07/2012 10/29/2022 Encounters Date Type Department Care Team Description 05/31/2024 Lab Requisition [facility] [phone] Janeth Broussard MD from Last 3 Months Immunizations Name Administration Dates Next Due COVID-19 vaccine (Pfizer-Bio NTech 30mcg/0.3mL) 12YO+ BIVALENT PF, MDV 10/29/2022 COVID-19 vaccine (Pfizer-Bio NTech 30mcg/0.3mL) 12YO+ ALEXANDR-SUCROSE PF, MDV 07/17/2022 [...] Clin [address]ario Delivery Location:[facility] ( [facility]) Last Filed Vital Signs Vital Sign Reading Time Taken Comments Blood Pressure 133/81 10/29/2022 8:43 AM SWING TENDER Pulse 76 10/29/2022 8:43 AM SWING TENDER Temperature 37.3 ??C (99.1 ??F) 07/17/2022 1:22 PM CD T Respiratory Rate - - Oxygen Saturation 98% 07/17/2022 1:22 PM CDT Inhaled Oxygen Concentration - - Weight 82.4 kg (181 lb 11.2 oz) 10/29/2022 8:43 AM SWING TENDER Height 167 cm (5' 5.75) 04/24/2022 1:20 [...] 04/24/2022 Depression screening for age 12+ 10/29/2023 10/29/20 22, 04/24/2022 COVID-19 vaccine series ( season) 2024 12/24/2023, 10/29/2022, 07/17/2022, Additional history exists Influenza for age 65+ 07/18/2024 10/29/2022 , 09/19/2014, 08/17/2012 Tetanus booster 05/21/2028 05/21/2018, 08/02/2008, 08/20/1995, Additional history exists Tdap Completed 06/20/2008 Procedures Procedure Name Priority Date/Time Associated Diagnosis Comments LAB TRACKING EVENT Routine 05/28/2024 3: 15 PM CDT HPV THIN PREP Routine 05/28/2024 3:15 PM CDT from Last 3 Months Results * LAB TRACKING EVENT (05/28/2024 3:15 PM CDT) Other (Other) Client Collect / Unknown 05/28/2024 3:15 PM CDT 05/31/2024 3:26 PM CDT Janeth Ginette Broussard MD LAB BILL ONLY [facility] [address] [place] [address], * HPV HIGH RISK (05/28/2024 3:15 PM CDT) TYPE 16 Negative Negative 06/05/2024 10:59 AM CDT [facility] TYPE 18 Negative Negative 06/05/2024 10:59 AM CDT [facility] OTHER HIGH RISK TYPES Negative Negative 06/05/2024 10:59 AM CDT [facility] TRA [facility] Other (Cervical) 05/28/2024 3:15 PM CDT 06/03/2024 7:33 AM CDT Narrative [facility] - 06/05/2024 10:59 AM CDT HPV types 16, 18, 31, 33, 35, 39, 45, 51, 52, 56, 58, 59, 66 and 68 DNA were undetectable or below the pre-set threshold. Methodology: Raúl Denisse 4800 HPV Test Janeth Ginette Broussard MD MICROBIOLOGY [facility] [address] [place] [address], from Last 3 Months Care Teams Airline Stewardess Relationship Specialty Start Date End Date Pcp, No . PCP - General 04/23/24 Amanda Vargas RN [address] [phone] [place] [facility] [place]istered Nurse 10/17/22 Oxana Pedroza, RN [address] [address] [place] [facility] [place]istered Nurse 10/17/22 Emily Angel RN [address] [phone] Otologist - [facility] Registered Nurse 10/17/22
--- OUTSIDE RECORDS SUMMARY | 2024-06-05 21:12 | XMS_ITS | Clinical Summary ---
Author Organization [facility] Address [address] [place] [address] Care Team Providers Care Manager Relocation Name Role Phone Marianela Back M.D. Primary Care Provider [phone] Source Comments Patient records contain information from all sites at [facility]. For routine questions regarding patient records, call [phone] during business hours, M-F 8:00 AM - 5:00 PM Central Time. Record requests for emergency care only can be directed to [phone] at any time.[facility] Allergies Active Allergy Reactions Criticality Noted [...] Cervical Squamous Low Grade Intraepith elial 04/27/2015 Overview (12/24/2023): PAP SMEAR 05/21/2018 = NEGATIVE/HPV OTHER HR [...] ) Anxiety 02/07/2012 Bipolar I Disorder 03/23/2009 Overview (04/08/2017): Bipolar disorder, unspecified Resolved Problems Problem Noted Date Diagnosed Date Resolved Date Sinusitis 12/24/2023 12/24/2023 Other Psychoactive Substance Mild Use Disorder (Abuse) In Remission 10/23/2018 12/24/2023 Alcohol Moderate Or Severe U se Disorder (Dependence) Uncomplicated 10/23/2018 12/24/2023 Bipolar I Manic One Episode Moderate 08/27/2016 07/10/2017 Overview (04/08/2017): Bipolar I Manic One Episode Moderate Bipolar I Manic One Episode Mild 07/30/2016 07/10/2017 Overview (04/08/2017): Bipolar I Manic One Episode Mild Hypothyroidism 03/23/2009 09/26/2021 Encounters Date Type Department Care Team Description 06/04/2024 Clinical Communication Department of Allergy in [address] [phone] Leena Joe, REsterN. Appt Request (Basic skin test) from Last 3 Months Immunizations Name Administration Dates Next Due DTaP (Infanrix, Tripedia) 06/20/2008 Influenza, Quadrivalent, Adjuvanted, Preservativ e Free 10/29/2022 Influenza, Unspecified 09/19/2014,08/17/2012 OPV 08/27/1973 SARS-COV-2 (COVID-19) - MODE RNA (12 YEARS AND OLDER) [id number] 12/24/2023 SARS-COV-2 (COVID-19) - PFIZ ER (Discontinued)(12 [...] your living situation today? I have a [facility] place to live 12/18/2023 Sex and Gender Information Value Date Recorded Sex Assigned at Female 12/18/2023 8:55 AM RESOURCES REPRESENTATIVE Gender Identity Female 05/21/2018 4:12 PM CDT Sexual Orientation Straight 05/21/2018 4: 12 PM CDT Last Filed Vital Signs Vital Sign Reading Time Taken Comments Blood Pressure 130/82 12/29/2023 12:42 PM RESOURCES REPRESENTATIVE Pulse 70 12/29/2023 12:42 PM RESOURCES REPRESENTATIVE Temperature 36.9 ??C (98.4 ??F) 12/24/2023 1 1:57 AM RESOURCES REPRESENTATIVE Respiratory Rate 16 06/02/2023 1:48 PM CDT Oxygen Saturation 98% 12/24/2023 11: 57 AM RESOURCES REPRESENTATIVE Inhaled Oxygen Concentration - - Weight 79.4 kg (175 lb 0.7 oz) 12/29/19 12:42 PM RESOURCES REPRESENTATIVE with shoes Height 166.5 cm (5' 5.55) 12/29/2023 1 2:42 PM RESOURCES REPRESENTATIVE with shoes Body Mass Index 28.64 12/29/2023 12:42 PM RESOURCES REPRESENTATIVE Plan of Treatment Upcoming Encounters Date Type Department Care Team (Late st Contact Info) Description 06/16/2024 2:45 PM CDT Telemedicine Department of Allergy in [place], [place] [address] [place] [phone] Araceli Fierro M.D. [address] [place] [phone] Discharge Disposition: Home or Self Care Health Maintenance Due Date Last Done Comments Bone Density Scan (Osteoporo sis Screen) 1956 CT Colonography 1955 Cologuard 1955 Pneumococcal vaccine (65+ ye ars) (1 of 2 - PCV) 1962 Zoster Vaccines (1 of 2) 2006 Colonoscopy 04/09/2021 04/09/2016, 04/09/2016 Colorectal Cancer Surveillance 04/09/2021 Mammogram 03/13/2022 03/13/2021, 04/2 11/2020, 03/07/2021, Additional history exists COVID-19 Vaccine (7 - 2022-2 4 season) 2024 12/24/2023, 10/29/2022, 07/17/2022, Additional history exists Influenza Vaccine (#1) 2024 , 10/29/2022, 10/22/2018, Additional history exists Thyroid Stimulating Hormone (TSH) [...] FUNCTION CASCADE, S Routine 12/24/2023 12:52 PM RESOURCES REPRESENTATIVE Hypothyroidism COMPREHENSIVE METABOLIC PANEL, S/P Routine 12/03/2021 11:38 AM RESOURCES REPRESENTATIVE Bipolar I Mixed Mild (HCC) Hypothyroidism OUTSIDE MG MAMMOGRAM Routine 03/07/2021 3:20 PM CDT PATHOLOGY ELECTROTYPER HELPER CYTOLOGY Routine 11:21 AM CDT Pap Smear Examination COLONOSCOPY Routine 04/09/2016 from Last 3 Months or Most Recently Relevant to Health Maintenance Results * Thyroid Function [place] (12/24/2023 12:52 PM RESOURCES REPRESENTATIVE) TSH, Sensitive 0.8 0.3 - 4.2 mIU/L 12/24/2023 1:51 PM RESOURCES REPRESENTATIVE CNFL Blood (Blood, Venous) 12/24/2023 12:52 PM RESOURCES REPRESENTATIVE 12/24/2023 12:53 PM RESOURCES REPRESENTATIVE Marianela Back M.D. LAB BLOOD ADD-ON [facility] [address] [place] [address], [facility] CNFL [place] [place] [address] * (ABNORMAL) Comprehensive Metabolic Panel (12/03/2021 11:38 AM RESOURCES REPRESENTATIVE) Potassium, P 4.1 3.6 - 5.2 mmol/L 12/03/2021 12:30 PM RESOURCES REPRESENTATIVE LCX Sodium, P 137 135 - 145 mmol/L 12/03/2021 12:30 PM RESOURCES REPRESENTATIVE LCX Chloride, P 103 98 - 107 mmol/L 12/03/2021 12:30 PM RESOURCES REPRESENTATIVE LCX Bicarbonate, P 20(L) 22 - 29 mmol/L 12/03/2021 12:30 PM RESOURCES REPRESENTATIVE LCX Anion Gap, P 14 7 - 15 12/03/2021 12:30 PM RESOURCES REPRESENTATIVE LCX BUN (Blood Urea Nitrogen), P 9 6 - 21 mg/dL 12/03/2021 12:30 PM RESOURCES REPRESENTATIVE LCX Creatinine 1.12(H) 0.59 - 1.04 mg/dL 12/03/2021 12:30 PM RESOURCES REPRESENTATIVE LCX eGFR-Black/ 60 >=60 mL/min/BS A 12/03/2021 12:30 PM RESOURCES REPRESENTATIVE LCX Comment: ----ADDITIONAL INFORMATION---- Estimated GFR calculated using the 2009 CKD_EPI creatinine equation. eGFR Non-Black/ 52(L) >=60 mL/min/BS A 12/03/2021 12:30 PM RESOURCES REPRESENTATIVE LCX Comment: ----ADDITIONAL INFORMATION---- Estimated GFR calculated using the 2009 CKD_EPI creatinine equation. Calcium, Total, P 9.6 8.8 - 10.2 mg/dL 12/03/2021 12:30 PM RESOURCES REPRESENTATIVE LCX Glucose, P 118 70 - 140 mg/dL 12/03/2021 12:30 PM RESOURCES REPRESENTATIVE LCX Protein, Total, P 7.5 6.3 - 7.9 g/dL 12/03/2021 12:30 PM RESOURCES REPRESENTATIVE LCX Albumin, P 4.6 3.5 - 5.0 g/dL 12/03/2021 12:30 PM RESOURCES REPRESENTATIVE LCX Aspartate Aminotransferase (AST), P 24 8 - 43 U/L 12/03/2021 12:30 PM RESOURCES REPRESENTATIVE LCX Alkaline Phosphatase, P 111(H) 35 - 104 U/L 12/03/2021 12:30 PM RESOURCES REPRESENTATIVE LCX Alanine Aminotransferase (ALT), P 20 7 - 45 U/L 12/03/2021 12:30 PM RESOURCES REPRESENTATIVE LCX Bilirubin, Total, P 0.5 <=1.2 mg/dL 12/03/2021 12:30 PM RESOURCES REPRESENTATIVE LCX Blood (Blood, Venous) 12/03/2021 11:38 AM RESOURCES REPRESENTATIVE 12/03/2021 11:53 AM RESOURCES REPRESENTATIVE Su Porter M.D. LAB BLOOD ADD-ON [facility] [address] [place] [address], [facility] LCX [facility] in [place] [address] [place] [address] * MAMMO [place] MEDICAID DIGITAL TOMOSYNTHESIS SCREENING BILATERAL-Outside Mammogram (03/07/2021 3:20 PM CDT) Narrative [facility] - 02/26/2022 12:44 PM CDT This order has been created and auto-finalized to support the import of outside images. If available, original interpretation can be found on the Media Tab in Chart Review, in Document Viewer, or as an image in QREADS. If a re-interpretation or overread is required please follow defined workflow. ?? Provider Not In System IMG BI PROCEDURES [facility] NA * Pathology ELECTROTYPER HELPER Cytology (05/21/2018 11:21 AM CDT) Pathologist [facility] PATHOLOGY ELECTROTYPER HELPER CYTOLOGY Patient Name: LEXI MCELROY MR#: [id number] Location: ??[facility] Date Reported: ??06/05/2018 15:13 Specimen #[id number] Other Clinical Conditions: Pap Type: Routine Pap Clinical History/Status (Select all that apply): Post Menopausal Ancillary Testing (Select all that apply): HPV with Genotyping, PCR, ThinPrep (order separately in [facility] [id number]) Source: ThinPrep Liquid Based Pap Test, cervical/endocer [...] Valerie Patricia MD ([id number]) Date Reported:06/05/20 15:[address], ??[place] [address] CPT Code(s) A: 335731449, 79285 The cervico-vaginal smear is a screening test [...] M.D. LAB PAP COPATH ORDERABLES JESUS ZUÑIGA [address] [place] [address] [place] [address], [facility] * Colonoscopy (04/09/2016) EXT Colonoscopy Abnormal - See Scanned Report for Details Normal - See Scanned Report for Details, HIMS - Report Received and Scanned Comment:Colonoscopy done in- house. Recall 5 years. Historical Provider GI PROCEDURE ORDERAB LES from Last 3 Months or Most Recently Relevant to Health Maintenance Care Teams Manager Relocation Relationship Specialty Start Date End Date Marianela Back M.D. [address] [place] [phone] PCP - General Family Medicine 12/08/23
--- OUTSIDE RECORDS SUMMARY | 2024-06-05 21:12 | XMS_ITS ---
Author Organization [facility] Address [address] [place] [address] Care Team Providers Care Field Technical Specialist Name Role Phone Unavailable Unavailable Unavailable Surgery Details Not on file Complications Check Surgery Details section. Procedure Estimated Blood Loss Check Surgery Details section. Procedure Findings Check Surgery Details section. Procedure Specimens Taken Check Surgery Details section.
--- OUTSIDE RECORDS SUMMARY | 2024-06-05 21:12 | XMS_ITS | Referral Summary ---
Author Organization [facility] Address [address] [place] [address] Care Team Providers Care Driver License Agent Name Role Phone Marianela Back M.D. Primary Care Provider +1- [phone] Source Comments Patient records contain information from all sites at [facility]. For routine questions regarding patient records, call [phone] during business hours, M-F 8:00 AM - 5:00 PM Central Time. Record requests for emergency care only can be directed to [phone] at any time.[facility] Encounters Date Type Department Care Team Description 06/04/2024 Clinical Communication Department of Allergy in [address] [phone] Leena Joe RDestiny. Appt Request (Basic skin test) from Last 3 Months Allergies Active Allergy [...] - MODE RNA (12 YEARS AND OLDER) [id number] 12/24/2023 SARS-COV-2 (COVID-19) - PFIZ ER (Discontinued)(12 [...] = 0.6 oz pur e alcohol) monthly [facility] Utilities Answer Date Recorded [...] your living situation today? I have a [facility] place to live 12/18/2023 Sex and Gender Information Value Date Recorded Sex Assigned at Female 12/18/2023 8:55 AM PARAMEDIC INSTRUCTOR Gender Identity Female 05/21/2018 4:12 PM CDT Sexual Orientation Straight 05/21/2018 4: 12 PM CDT Last Filed Vital Signs Vital Sign Reading Time Taken Comments Blood Pressure 130/82 12/29/2023 12:42 PM PARAMEDIC INSTRUCTOR Pulse 70 12/29/2023 12:42 PM PARAMEDIC INSTRUCTOR Temperature 36.9 ??C (98.4 ??F) 12/24/2023 1 1:57 AM PARAMEDIC INSTRUCTOR Respiratory Rate 16 06/02/2023 1:48 PM CDT Oxygen Saturation 98% 12/24/2023 11: 57 AM PARAMEDIC INSTRUCTOR Inhaled Oxygen Concentration - - Weight 79.4 kg (175 lb 0.7 oz) 12/29/19 12:42 PM PARAMEDIC INSTRUCTOR with shoes Height 166.5 cm (5' 5.55) 12/29/2023 1 2:42 PM PARAMEDIC INSTRUCTOR with shoes Body Mass Index 28.64 12/29/2023 12:42 PM PARAMEDIC INSTRUCTOR Plan of Treatment Upcoming Encounters Date Type Department Care Team (Late st Contact Info) Description 06/16/2024 2:45 PM CDT Telemedicine Department of Allergy in [address] [phone] Araceli Fierro M.D. [address] [place] [phone] Discharge Disposition: Home or Self Care Procedures Procedure Name Priority Date/Time Associated Diagnosis Comments THYROID FUNCTION CASCADE, S Routine 12/24/2023 12:52 PM PARAMEDIC INSTRUCTOR Hypothyroidism COMPREHENSIVE METABOLIC PANEL, S/P Routine 12/03/2021 11:38 AM PARAMEDIC INSTRUCTOR Bipolar I Mixed Mild (HCC) Hypothyroidism OUTSIDE MG MAMMOGRAM Routine 03/07/2021 3:20 PM CDT PATHOLOGY MACHINE ERECTOR CYTOLOGY Routine 11:21 AM CDT Pap Smear Examination COLONOSCOPY Routine 04/09/2016 from Last 3 Months or Most Recently Relevant to Health Maintenance Results * Thyroid Function Odon (12/24/2023 12:52 PM PARAMEDIC INSTRUCTOR) TSH, Sensitive 0.8 0.3 - 4.2 mIU/L 12/24/2023 1:51 PM PARAMEDIC INSTRUCTOR CNFL Blood (Blood, Venous) 12/24/2023 12:52 PM PARAMEDIC INSTRUCTOR 12/24/2023 12:53 PM PARAMEDIC INSTRUCTOR Marianela Back M.D. LAB BLOOD ADD-ON [facility] [address] [place] [id number], [facility] CNFL [facility] [address] * (ABNORMAL) Comprehensive Metabolic Panel (12/03/2021 11:38 AM PARAMEDIC INSTRUCTOR) Potassium, P 4.1 3.6 - 5.2 mmol/L 12/03/2021 12:30 PM PARAMEDIC INSTRUCTOR LCX Sodium, P 137 135 - 145 mmol/L 12/03/2021 12:30 PM PARAMEDIC INSTRUCTOR LCX Chloride, P 103 98 - 107 mmol/L 12/03/2021 12:30 PM PARAMEDIC INSTRUCTOR LCX Bicarbonate, P 20(L) 22 - 29 mmol/L 12/03/2021 12:30 PM PARAMEDIC INSTRUCTOR LCX Anion Gap, P 14 7 - 15 12/03/2021 12:30 PM PARAMEDIC INSTRUCTOR LCX BUN (Blood Urea Nitrogen), P 9 6 - 21 mg/dL 12/03/2021 12:30 PM PARAMEDIC INSTRUCTOR LCX Creatinine 1.12(H) 0.59 - 1.04 mg/dL 12/03/2021 12:30 PM PARAMEDIC INSTRUCTOR LCX eGFR-Black/ 60 >=60 mL/min/BS A 12/03/2021 12:30 PM PARAMEDIC INSTRUCTOR LCX Comment: ----ADDITIONAL INFORMATION---- Estimated GFR calculated using the 2009 CKD_EPI creatinine equation. eGFR Non-Black/ 52(L) >=60 mL/min/BS A 12/03/2021 12:30 PM PARAMEDIC INSTRUCTOR LCX Comment: ----ADDITIONAL INFORMATION---- Estimated GFR calculated using the 2009 CKD_EPI creatinine equation. Calcium, Total, P 9.6 8.8 - 10.2 mg/dL 12/03/2021 12:30 PM PARAMEDIC INSTRUCTOR LCX Glucose, P 118 70 - 140 mg/dL 12/03/2021 12:30 PM PARAMEDIC INSTRUCTOR LCX Protein, Total, P 7.5 6.3 - 7.9 g/dL 12/03/2021 12:30 PM PARAMEDIC INSTRUCTOR LCX Albumin, P 4.6 3.5 - 5.0 g/dL 12/03/2021 12:30 PM PARAMEDIC INSTRUCTOR LCX Aspartate Aminotransferase (AST), P 24 8 - 43 U/L 12/03/2021 12:30 PM PARAMEDIC INSTRUCTOR LCX Alkaline Phosphatase, P 111(H) 35 - 104 U/L 12/03/2021 12:30 PM PARAMEDIC INSTRUCTOR LCX Alanine Aminotransferase (ALT), P 20 7 - 45 U/L 12/03/2021 12:30 PM PARAMEDIC INSTRUCTOR LCX Bilirubin, Total, P 0.5 <=1.2 mg/dL 12/03/2021 12:30 PM PARAMEDIC INSTRUCTOR LCX Blood (Blood, Venous) 12/03/2021 11:38 AM PARAMEDIC INSTRUCTOR 12/03/2021 11:53 AM PARAMEDIC INSTRUCTOR Su Porter M.D. LAB BLOOD ADD-ON [facility] [address] [facility] [place] [address] [place] [address] * MAMMO [place] MED[place] DIGITAL TOMOSYNTHESIS SCREENING BILATERAL-Outside Mammogram (03/07/2021 [...] Provider Not In System IMG BI PROCEDURES [facility] NA * Pathology MACHINE ERECTOR Cytology (05/21/2018 11:21 AM CDT) PATHOLOGY MACHINE ERECTOR CYTOLOGY Patient Name: LEXI MCELROY MR#: [id number] Location: ??[facility] Date Reported: ??06/05/2018 15:13 Specimen #[id number] Other Clinical Conditions: Pap Type: Routine Pap Clinical History/Status (Select all that apply): Post Menopausal Ancillary Testing (Select all that apply): HPV with Genotyping, PCR, ThinPrep (order separately in [facility] [id number]) Source: ThinPrep Liquid Based Pap Test, cervical/endocer [...] Valerie Patricia MD ([id number]) Date Reported:06/05/20 15:13 [facility] 700 [facility], ??[place] [address] CPT Code(s) A: 726422330, 05142 The cervico-vaginal smear is a screening test [...] Betty Argueta M.D. LAB PAP COPATH ORDERABLES COPATH [address] * Colonoscopy (04/09/2016) EXT Colonoscopy Abnormal - See Scanned Report for Details Normal - See Scanned Report for Details, HIMS - Report Received and Scanned Comment:Colonoscopy done in- house. Recall 5 years. Historical Provider GI PROCEDURE ORDERAB LES from Last 3 Months or Most Recently Relevant to Health Maintenance Care Teams Driver License Agent Relationship Specialty Start Date End Date Marianela Back M.D. [address] [place] [phone] PCP - General Family Medicine 12/08/23
--- OUTSIDE RECORDS SUMMARY | 2024-06-05 21:12 | XMS_ITS | Encounter Summary ---
Author Organization [facility] Address [address] [place] [address] Care Team Providers Care Civil Preparedness Officer Name Role Phone Marianela Back M.D. Primary Care Provider +1- [phone] Encounter Details Date Type Department Care Team (Late st Contact Info) Description 12/14/2015 Historical Ophthalmology [facility] Eduardo Todd O.D. [address] [place] [phone] Social History Tobacco Use Types Packs/Day Years Used Date Smoking Tobacco: Never Assessed Sex and Gender Information Value Date Recorded Sex Assigned at Female 12/18/2023 8:55 AM ODD PIECE CHECKER Gender Identity Female 05/21/2018 4:12 PM CDT Sexual Orientation Straight 05/21/2018 4: 12 PM CDT documented as of this encounter Progress Notes * Eduardo Todd O.D. - 12/14/2015 4:14 PM CST Contact Lens Exam HISTORY OF PRESENT ILLNESS vision isn't that good with contacts but likes to wear them. CDM Reports - EYECL Id: [id number] Status: Fnl documented in this encounter Plan of Treatment Upcoming Encounters Date Type Department Care Team (Late st Contact Info) Description 06/16/2024 2:45 PM CDT Telemedicine Department of Allergy in [place], [place] [address] [facility] [place] [phone] Araceli Fierro M.D. [address] [place] [phone] Discharge Disposition: Home or Self Care documented as of this encounter Visit Diagnoses Not on filedocumented in this encounter Additional Health Concerns Infection Onset Date Last Indicated Resolved Time COVID19 Pending 11/18/2020 11/18/2020 11/18/2020 1 1:59 AM ODD PIECE CHECKER COVID19 Pending 11/18/2020 11/18/2020 11/18/2020 6 :45 PM ODD PIECE CHECKER COVID19 Pending 10/15/2021 10/15/2021 10/15/2021 8 :23 PM ODD PIECE CHECKER COVID19 Pending 01/29/2022 01/29/2022 01/29/2022 1 :59 PM CDT COVID19 Pending 03/28/2022 03/28/2022 03/28/2022 1 0:49 AM CDT COVID19 Pending 03/28/2022 03/28/2022 03/28/2022 1 :14 PM CDT Assessment Noted Time PHQ-9 Depression Total Score: 0 03/13/20 15 3:14 PM CDT documented as of this encounter Care Teams Civil Preparedness Officer Relationship Specialty Start Date End Date Marianela Back M.D. [address] [place] [phone] PCP - General Family Medicine 12/08/23 documented as of this encounter
--- OUTSIDE RECORDS SUMMARY | 2024-06-05 21:12 | XMS_ITS | Encounter Summary ---
Author Organization [facility] Address [address] [place] [address] Care Team Providers Care Quality Lead Name Role Phone Marianela Back M.D. Primary Care Provider +1- [phone] Reason for Visit * Reason Onset Date Comments Referral-Psychiatry 02/06/2024 Encounter Details Date Type Department Care Team (Latest Contact Info) Description 02/06/2024 Clinical Communication Department of Family Medicine, [facility], in [address] [phone] Marianela Back M.D. [address] [place] [phone] Referral-Psychiatry Social History Tobacco Use Types Packs/Day Years Used Date Smoking Tobacco: Never Smokeless Tobacco: Never Alcohol Use Standard Drinks/Week Comments Yes 2 (1 standard drink = 0.6 oz pur e alcohol) monthly [facility] Utilities Answer Date Recorded In the past 12 months has [employer], gas, oil, or water [employer] threatened to shut off services in your [...] your living situation today? I have a [facility] place to live 12/18/2023 Sex and Gender Information Value Date Recorded Sex Assigned at Female 12/18/2023 8:55 AM CIRCUIT BOARD ASSEMBLER Gender Identity Female 05/21/2018 4:12 PM CDT Sexual Orientation Straight 05/21/2018 4: 12 PM CDT documented as of this encounter Plan of Treatment Upcoming Encounters Date Type Department Care Team (Late st Contact Info) Description 06/16/2024 2:45 PM CDT Telemedicine Department of Allergy in [place], [place] [address] [place] [phone] Araceli Fierro M.D. [address] [place] [phone] Discharge Disposition: Home or Self Care documented as of this encounter Visit Diagnoses Not on filedocumented in this encounter Additional Health Concerns Assessment Noted Time PHQ-9 Depression Total Score: 11 024 12:44 PM CIRCUIT BOARD ASSEMBLER documented as of this encounter Care Teams Quality Lead Relationship Specialty Start Date End Date Marianela Back M.D. [address] [place] [phone] PCP - General Family Medicine 12/08/23 documented as of this encounter
--- OUTSIDE RECORDS SUMMARY | 2024-06-05 21:12 | XMS_ITS | Encounter Summary ---
Author Organization [facility] Address [address] [place] [address] Care Team Providers Care Office Manager Receptionist Name Role Phone Marianela Back M.D. Primary Care Provider +1- [phone] Encounter Details Date Type Department Care Team (Late st Contact Info) Description 01/14/2017 Historical Ophthalmology [facility] Eduardo Todd O.D. [address] [place] [phone] Social History Tobacco Use Types Packs/Day Years Used Date Smoking Tobacco: Never Sex and Gender Information Value Date Recorded Sex Assigned at Female 12/18/2023 8:55 AM PHOTO PRODUCER Gender Identity Female 05/21/2018 4:12 PM CDT [...] eyeglass prescription\ CDM Reports - EYEGEN Id: [id number] Status: Fnl documented in this encounter Plan of Treatment Upcoming Encounters Date Type Department Care Team (Late st Contact Info) Description 06/16/2024 2:45 PM CDT Telemedicine Department of Allergy in [address] [phone] Araceli Fierro M.D. [address] [place] [phone] Discharge Disposition: Home or Self Care documented as of this encounter Visit Diagnoses Not on filedocumented in this encounter Additional Health Concerns Infection Onset Date Last Indicated Resolved Time COVID19 Pending 11/18/2020 11/18/2020 11/18/2020 1 1:59 AM PHOTO PRODUCER COVID19 Pending 11/18/2020 11/18/2020 11/18/2020 6 :45 PM PHOTO PRODUCER COVID19 Pending 10/15/2021 10/15/2021 10/15/2021 8 :23 PM PHOTO PRODUCER COVID19 Pending 01/29/2022 01/29/2022 01/29/2022 1 :59 PM CDT COVID19 Pending 03/28/2022 03/28/2022 03/28/2022 1 0:49 AM CDT COVID19 Pending 03/28/2022 03/28/2022 03/28/2022 1 :14 PM CDT Assessment Noted Time PHQ-9 Depression Total Score: 0 03/13/20 15 3:14 PM CDT documented as of this encounter Care Teams Office Manager Receptionist Relationship Specialty Start Date End Date Marianela Back M.D. [address] [place] [phone] PCP - General Family Medicine 12/08/23 documented as of this encounter
--- OUTSIDE RECORDS SUMMARY | 2024-06-05 21:12 | XMS_ITS | Encounter Summary ---
Author Organization [facility] Address [address] [place] [address] Care Team Providers Care Drug And Alcohol Treatment Specialist Name Role Phone Marianela Back M.D. Primary Care Provider +1- [phone] Encounter Details Date Type Department Care Team (Late st Contact Info) Description 01/14/2017 Historical Ophthalmology [facility] Eduardo Todd O.D. [address] [place] [phone] Social History Tobacco Use Types Packs/Day Years Used Date Smoking Tobacco: Never Sex and Gender Information Value Date Recorded Sex Assigned at Female 12/18/2023 8:55 AM COMPOSITION PROFESSOR Gender Identity Female 05/21/2018 4:12 PM CDT Sexual Orientation Straight 05/21/2018 4: 12 PM CDT documented as of this encounter Progress Notes * Eduardo Todd O.D. - 01/14/2017 1:33 PM CST Contact Lens Exam HISTORY OF PRESENT ILLNESS likes fit not vision of current contacts . last wore cl's 2 days ago CDM Reports - EYECL Id: [id number] Status: Fnl documented in this encounter Plan of Treatment Upcoming Encounters Date Type Department Care Team (Late st Contact Info) Description 06/16/2024 2:45 PM CDT Telemedicine Department of Allergy in [address] [place] [phone] Araceli Fierro M.D. [address] [place] [phone] Discharge Disposition: Home or Self Care documented as of this encounter Visit Diagnoses Not on filedocumented in this encounter Additional Health Concerns Infection Onset Date Last Indicated Resolved Time COVID19 Pending 11/18/2020 11/18/2020 11/18/2020 1 1:59 AM COMPOSITION PROFESSOR COVID19 Pending 11/18/2020 11/18/2020 11/18/2020 6 :45 PM COMPOSITION PROFESSOR COVID19 Pending 10/15/2021 10/15/2021 10/15/2021 8 :23 PM COMPOSITION PROFESSOR COVID19 Pending 01/29/2022 01/29/2022 01/29/2022 1 :59 PM CDT COVID19 Pending 03/28/2022 03/28/2022 03/28/2022 1 0:49 AM CDT COVID19 Pending 03/28/2022 03/28/2022 03/28/2022 1 :14 PM CDT Assessment Noted Time PHQ-9 Depression Total Score: 0 03/13/20 15 3:14 PM CDT documented as of this encounter Care Teams Drug And Alcohol Treatment Specialist Relationship Specialty Start Date End Date Marianela Back M.D. [address] [place] [phone] PCP - General Family Medicine 12/08/23 documented as of this encounter
--- OUTSIDE RECORDS SUMMARY | 2024-06-05 21:12 | XMS_ITS | Encounter Summary ---
Author Organization [facility] Address [address] [place] [address] Care Team Providers Care Residential Concierge Name Role Phone Marianela Back M.D. Primary Care Provider +1- [phone] Reason for Visit * Reason Onset Date Comments Appt Request 06/04/2024 Basic skin test Encounter Details Date Type Department Care Team (Latest Contact Info) Description 06/04/2024 Clinical Communication Department of Allergy in [address] [phone] Leena Joe RKerry [address] [place] [phone] Appt Request (Basic skin test) Social History Tobacco Use Types Packs/Day Years Used Date Smoking Tobacco: Never Smokeless Tobacco: Never Alcohol Use Standard Drinks/Week Comments Yes 2 (1 standard drink = 0.6 oz pur e alcohol) monthly [facility] Utilities Answer Date Recorded In the past 12 months has [employer], gas, oil, or water [email or web address] threatened to shut off services in your [...] your living situation today? I have a [facility] place to live 12/18/2023 Sex and Gender Information Value Date Recorded Sex Assigned at Female 12/18/2023 8:55 AM CORE JAVA ENGINEER Gender Identity Female 05/21/2018 4:12 PM CDT Sexual Orientation Straight 05/21/2018 4: 12 PM CDT documented as of this encounter Plan of Treatment Upcoming Encounters Date Type Department Care Team (Late st Contact Info) Description 06/16/2024 2:45 PM CDT Telemedicine Department of Allergy in [place], [place] [address] [place] [phone] Araceli Fierro M.D. [address] [place] [phone] Discharge Disposition: Home or Self Care documented as of this encounter Visit Diagnoses Not on filedocumented in this encounter Additional Health Concerns Assessment Noted Time PHQ-9 Depression Total Score: 11 024 12:44 PM CORE JAVA ENGINEER documented as of this encounter Care Teams Residential Concierge Relationship Specialty Start Date End Date Marianela Back M.D. [address] [place] [phone] PCP - General Family Medicine 12/08/23 documented as of this encounter
--- OUTSIDE RECORDS SUMMARY | 2024-06-05 21:12 | XMS_ITS | Encounter Summary ---
Author Organization [facility] Address [address] [place] [address] Care Team Providers Care Import Coordination And Production Head Name Role Phone Marianela Back M.D. Primary Care Provider +1- [phone] Encounter Details Date Type Department Care Team (Late st Contact Info) Description 04/27/2015 Historical Ophthalmology [facility] Eduardo Todd O.D. [address] [place] [phone] Social History Tobacco Use Types Packs/Day Years Used Date Smoking Tobacco: Never Assessed Sex and Gender Information Value Date Recorded Sex Assigned at Female 12/18/2023 8:55 AM JUVENILE PROBATION OFFICER Gender Identity Female 05/21/2018 4:12 PM CDT [...] LE scl CDM Reports - EYECL Id: [id number] Status: Fnl documented in this encounter Plan of Treatment Upcoming Encounters Date Type Department Care Team (Late st Contact Info) Description 06/16/2024 2:45 PM CDT Telemedicine Department of Allergy in [place], [place] [address] [place] [phone] Araceli Fierro M.D. [address] [place] [phone] Discharge Disposition: Home or Self Care documented as of this encounter Visit Diagnoses Not on filedocumented in this encounter Additional Health Concerns Infection Onset Date Last Indicated Resolved Time COVID19 Pending 11/18/2020 11/18/2020 11/18/2020 1 1:59 AM JUVENILE PROBATION OFFICER COVID19 Pending 11/18/2020 11/18/2020 11/18/2020 6 :45 PM JUVENILE PROBATION OFFICER COVID19 Pending 10/15/2021 10/15/2021 10/15/2021 8 :23 PM JUVENILE PROBATION OFFICER COVID19 Pending 01/29/2022 01/29/2022 01/29/2022 1 :59 PM CDT COVID19 Pending 03/28/2022 03/28/2022 03/28/2022 1 0:49 AM CDT COVID19 Pending 03/28/2022 03/28/2022 03/28/2022 1 :14 PM CDT Assessment Noted Time PHQ-9 Depression Total Score: 0 03/13/20 15 3:14 PM CDT documented as of this encounter Care Teams Import Coordination And Production Head Relationship Specialty Start Date End Date Marianela Back M.D. [address] [place] [phone] PCP - General Family Medicine 12/08/23 documented as of this encounter
--- OUTSIDE RECORDS SUMMARY | 2024-06-05 21:12 | XMS_ITS | Encounter Summary ---
Author Organization [facility] Address [address] [place] [address] Care Team Providers Care Air Bag Curer Name Role Phone Marianela Back M.D. Primary Care Provider +1- [phone] Encounter Details Date Type Department Care Team (Late st Contact Info) Description 12/14/2015 Historical Ophthalmology [facility] Eduardo Todd O.D. [address] [place] [phone] Social History Tobacco Use Types Packs/Day Years Used Date Smoking Tobacco: Never Assessed Sex and Gender Information Value Date Recorded Sex Assigned at Female 12/18/2023 8:55 AM CENTRAL COMMUNICATIONS SPECIALIST Gender Identity Female 05/21/2018 4:12 PM [...] eyeglass prescription CDM Reports - EYEGEN Id: [id number] Status: Fnl documented in this encounter Plan of Treatment Upcoming Encounters Date Type Department Care Team (Late st Contact Info) Description 06/16/2024 2:45 PM CDT Telemedicine Department of Allergy in [place], [place] [address] [place] [phone] Araceli Fierro M.D. [address] [place] [phone] Discharge Disposition: Home or Self Care documented as of this encounter Visit Diagnoses Not on filedocumented in this encounter Additional Health Concerns Infection Onset Date Last Indicated Resolved Time COVID19 Pending 11/18/2020 11/18/2020 11/18/2020 1 1:59 AM CENTRAL COMMUNICATIONS SPECIALIST COVID19 Pending 11/18/2020 11/18/2020 11/18/2020 6 :45 PM CENTRAL COMMUNICATIONS SPECIALIST COVID19 Pending 10/15/2021 10/15/2021 10/15/2021 8 :23 PM CENTRAL COMMUNICATIONS SPECIALIST COVID19 Pending 01/29/2022 01/29/2022 01/29/2022 1 :59 PM CDT COVID19 Pending 03/28/2022 03/28/2022 03/28/2022 1 0:49 AM CDT COVID19 Pending 03/28/2022 03/28/2022 03/28/2022 1 :14 PM CDT Assessment Noted Time PHQ-9 Depression Total Score: 0 03/13/20 15 3:14 PM CDT documented as of this encounter Care Teams Air Bag Curer Relationship Specialty Start Date End Date Marianela Back M.D. [address] [address] [place] [phone] PCP - General Family Medicine 12/08/23 documented as of this encounter
[2024-06-05 21:13] VITALS: BP 125/74; PULSE 71; RESP 16; TEMP 36.4
== END 2024-06-05 21:14 | disposition home or self-care (01) ==
LOC: ED 21:09
PROVIDERS: Emergency Provider Emergency Medicine Emergency Medical Services; PCP Internal Medicine
DX: R07.89 Other chest pain (principal)
CPT/HCPCS: 93005; 99283; 99284

== ENCOUNTER 2024-07-23 10:03 | Outpatient (CLI) | payer OTHER, SELFPAY ==
--- OUTSIDE RECORDS SUMMARY | 2024-07-23 10:09 | XMS_ITS | Clinical Summary ---
Author Organization [facility] Address [place], [place] [address] Care Team Providers Care Health Occupations Teacher Name Role Phone Amanda Vargas RN Unavailable [phone] Oxana Pedroza RN Unavailable [phone] Emily Angel RN Unavailable [phone] Yolanda Ahn DO Primary Care Provider [phone] Allergies Active Allergy Reactions Criticality Noted Date [...] 1 Tablet by mouth once daily. Active lithium carbonate (LITHONATE) 150 mg capsule TAKE 1 CAPSULE BY MOUTH EVERY EVENING WITH ONE 300MG CAPSULE FOR A TOTAL OF 450MG 06/09/2024 Active lithium carbonate (LITHONATE) 300 mg capsule TAKE 2 CAPSULES BY MOUTH EVERY MORNING AND 1 CAPSULE EVERY EVENING 03/17/2024 Active clonazePAM (KLONOPIN) 1 mg tabletIndication s:Bipolar 1 disorder (HC) Take 1 Tablet (1 mg) by mouth two times daily. 30 Tablet 07/12/2024 Active levothyroxine (SYNTHROID) 75 mcg tabletIndication s:Hypothyroidism (acquired) Take 1 Tablet (75 mcg) by mouth once daily. 90 Tablet 1 07/12/2024 Active traZODone (DESYREL) 100 mg tabletIndication s:Bipolar 1 disorder (HC) Take 1 Tablet (100 mg) by mouth at bedtime. 30 Tablet 07/12/2024 Active cetirizine (ZYRTEC) 10 mg tabletIndication s:Post-nasal drip Take 1 Tablet (10 mg) by mouth once daily. 30 Tablet 07/02/2022 4 Discontinue d(*Patient states no longer taking) ipratropium (ATROVENT NASAL) 21 mcg (0.03 %) nasal sprayIndications :Post-nasal drip Inhale 1 [place] into affected nostril(s) 3 times daily. [place] dose in each nostril. 30 mL 07/02/2022 4 Discontinue d(*Patient states no longer taking) traZODone (DESYREL) 100 mg tabletIndication s:Bipolar 1 disorder (HC) Take 1 Tablet (100 mg) by mouth at bedtime. 90 Tablet 3 10/29/2022 4 Discontinue d(Reorder (E-cancel not sent)) lithium carbonate 600 mg capsuleIndicatio ns:Bipolar 1 disorder (HC) Take 1 Capsule (600 mg) by mouth two times daily. 180 Capsule 3 10/29/2022 4 Discontinue d(*Patient states no longer taking) clonazePAM (KLONOPIN) 1 mg tabletIndication s:Bipolar 1 disorder (HC) Take 1 Tablet (1 mg) by mouth two times daily. Further refills will be prescribed during an appointment 60 Tablet 2 10/29/2022 4 Discontinue d(*Medicati on adjustment) levothyroxine (SYNTHROID) 75 mcg tabletIndication s:Hypothyroidism (acquired) Take 1 Tablet (75 mcg) by mouth once daily. 30 Tablet 06/11/2023 4 Discontinue d(Reorder (E-cancel not sent)) Active Problems Problem Noted Date Diagnosed Date Controlled substance agreement signed 10/29/2022 Overview: Signed 10-29-2022. Cedrick Vinson [facility] Psychiatry History of partial adherence to treatment [...] Encounters Date Type Department Care Team Description 07/15/2024 3:15 PM CDT Ancillary Procedure [facility] [address] [facility] [place] [address] 07/15/2024 2:30 PM CDT Ancillary Procedure [facility] [address] [facility] [place] [address] 07/15/2024 Ancillary Orders [facility] [address] [facility] [place] [address] Karen Jones PA 07/15/2024 Travel 07/12/2024 2:25 PM CDT Office Visit [facility] [address] [facility] [place] [address] Yolanda Ahn, DO Establish Care (would like referral to psychiatry for bipolar 1, will schedule MWV/Would like STD screening including HIV) 07/12/2024 Travel 06/30/2024 Telephone [facility] [address] [facility] [address] Pcp, No Referral ([id number] MAMMO SUKHJINDER UNI ADDL VIEWS LEFT [[id number]]ReferralNee ds Scheduling06/28/2024 Karen Jones, [id number] BREAST UNILATERAL LEFT LIMITED [[id number]]Clinic PerformedNeeds Scheduling06/28/2024 Karen Jones, FERNYSAP06/28/2025/) 06/25/2024 11:20 AM CDT Ancillary Procedure [facility] [address] [place] [address] 06/25/2024 Travel 06/05/2024 Orders Only [facility] Scanner 1 scan: (1-Ord) EKG RESULT, 06/05/2024 05/31/2024 Lab Requisition [facility] [phone] Bobo, Janeth Peng MD from Last 3 Months Immunizations Name Administration Dates Next Due COVID-19 vaccine (Pfizer-Bio NTech 30mcg/0.3mL) 12YO+ BIVALENT PF, MDV 10/29/2022 COVID-19 vaccine (Pfizer-Bio NTech 30mcg/0.3mL) 12YO+ ALEXANDR-SUCROSE PF, MDV 07/17/2022 DTaP 06/20/2008 Influenza Virus, Unspecified 10/29/2022,09/19/20 14,08/17/2012 Influenza, Inactivated AIIV4 (Age 65+ Years) Preserv Free 10/29/2022 Oral Polio Vaccine 08/27/1973 Td (Age >=7 Years) 08/20/1995,03/05/1972 Td, Preservative Free (age >= 7 Years) 8 Tdap 06/20/2008 Family History Medical History Relation Name Comments Anxiety disorder Daughter Rosario Depression Daughter Rosario Suicide Attempts Daughter Rosario Cancer-breast Maternal Grandmother Bipolar disorder Mother Cancer-breast Mother Cancer-breast Sister Depression Sister Relation Name Status Comments Daughter Rosario Other Maternal Grandmother Mother Sister Social History Tobacco [...] of Communication with Friends and Fami ly 4 07/12/2024 Alcohol Use Answer Date Recorded How often do you have a drink containing alcohol ? 2 10/29/2022 How many drinks containing a lcohol do you have on a typical day when you are drinking? 0 10/29/2022 How often do you have five or more drinks on one occasion? 1 10/29/2022 Financial Resource Strain Answer Date R ecorded Difficulty of Paying Living Expenses 3 07/12/2024 Difficulty of Paying Living Expenses Not on file 07/12/2024 Food Insecurity Answer Date Recorded Worried About Running Out of Food in the Last Ye ar 2 07/12/2024 Transportation Needs Answer Date Record ed Lack of Transportation (Medical) 1 07/12/2024 Housing Stability Answer Date Recorded Unable to Pay for Housing in the Last Year 1 07/12/2024 Education Answer Date Recorded What is the [...] Clin 9[address] Term Livin g Rosario Delivery Location:[facility] ( [facility]) Last Filed Vital Signs Vital Sign Reading Time Taken Comments Blood Pressure 119/81 07/12/2024 2:50 PM CDT Pulse 71 07/12/2024 2:50 PM CDT Temperature 37.3 ??C (99.1 ??F) 07/17/2022 1:22 PM CD T Respiratory Rate - - Oxygen Saturation 98% 07/17/2022 1:22 PM CDT Inhaled Oxygen Concentration - - Weight 77.1 kg (170 lb) 07/12/2024 2:50 PM CDT Height 167 cm (5' 5.75) 04/24/2022 1:20 PM CDT Body Mass Index 27.65 04/24/2022 1:20 PM CDT Plan of Treatment Health Maintenance Due Date Last Done Comments Pneumococcal series for age 65+ (1 of 2 - PCV) 1962 Hepatitis C screening for ag e 18-79 1974 Colonoscopy through age 75 2001 Lipids for age 45-75 2001 Zoster (shingles) series for age 50+ (1 of 2) 2006 DEXA/DXA scan for age 65+ 2021 BMI (ht and wt on same day) for age 18+ 04/24/2023 04/24/2022 Depression screening for age 12+ 10/29/2023 10/29/20, 04/24/2022 COVID-19 vaccine series ( season) 2024 12/24/2023, 10/29/2022, 07/17/2022, Additional history exists Influenza for age 65+ 07/18/2024 10/29/2022 , 10/29/2022, 09/19/2014, Additional history exists Medicare Wellness for age 65+ 12/24/2024 (Verified in Care Everywhere or Patient Record) Mammogram for age 45-75 07/15/2025 07/15/2024, 06/25 Tetanus booster 05/21/2028 05/21/2018, 02/2008, 08/20/1995, Additional history exists Tdap Completed 06/20/2008 Procedures Procedure Name Priority Date/Time Associated Diagnosis Comments US BREAST UNILATERAL LEFT LIMITED JULES 07/15/2024 3:12 PM CDT Abnormal mammogram XR MAMMO SUKHJINDER UNI ADDL VIEWS LEFT JULES 07/15/2024 2:44 PM CDT Abnormal mammogram XR MAMMO SUKHJINDER BILAT SCREEN Routine 06/25/2024 11:35 AM CDT Visit for screening mammogram SCAN-ELECTROCARDIOGR AM EKG 06/05/2024 12:00 AM CDT LAB TRACKING EVENT Routine 05/28/2024 3: 15 PM CDT SUPPORT DBA THIN PREP PAP SCREEN IMAGED Routine 05/28/2024 3:15 PM CDT HPV THIN PREP Routine 05/28/2024 3:15 PM CDT from Last 3 Months Results * US BREAST UNILATERAL LEFT LIMITED (07/15/2024 3:12 PM CDT) Anatomical Region Laterality Modality BREASTS, Breast Left, Breast Right Left Ultrasound Narrative 07/16/2024 3:09 PM CDT For Patients: As a result of the Cures Act, medical imaging exams and procedure reports are released immediately into your electronic medical record. ??You may view this report before your referring provider. ?? If you have questions, please contact your health care provider. LEFT BREAST LIMITED ULTRASOUND, 07/15/2024 PLEASE SEE [id number] FOR COMBINED REPORT WITH LEFT DIGITAL MAMMOGRAM OF SAME DAY. Karen MUNOZ US * XR MAMMO SUKHJINDER UNI ADDL VIEWS LEFT (07/15/2024 2:44 PM CDT) Anatomical Region Laterality Modality BREASTS, Breast Left Mammography 07/15/2024 3:46 PM CDT Impressions 07/16/2024 3:09 PM CDT Indeterminate lobular nodular structure in the LEFT breast at 6 o'clock 3 cm from the nipple measuring 6 x 3 x 10 mm containing microcalcifications. RECOMMENDATION: Ultrasound-guided core needle biopsy. Results and recommendations discussed with the patient. BI-RADS Category 4: Suspicious ?? Dictated by: Nestor Beck MD @07/15/2024 3:46:02 PM CRL:rcd PATIENTS: You will also receive a letter with your examination results in an easy to read format. ??If you have questions about your results, please contact your referring provider. Narrative 07/16/2024 3:09 PM CDT For Patients: As a result of the Century Cures Act, medical imaging exams and procedure reports are released immediately into your electronic medical record. ??You may view this report before your referring provider. ?? If you have questions, please contact your health care provider. LEFT DIGITAL DIAGNOSTIC MAMMOGRAM ADDITIONAL VIEWS WITH TOMOSYNTHESIS, 07/15/2024 LEFT BREAST LIMITED ULTRASOUND, 07/15/2024 CLINICAL HISTORY: LEFT breast mass/asymmetry. COMPARISON: 06/25/2024 TECHNIQUE: Digital LEFT mammogram in two projections. Tomosynthesis was used in this interpretation. Real-time ultrasound imaging of LEFT breast with imaging documentation. Scanning was performed by both the technologist and the radiologist. BREAST COMPOSITION: There are scattered areas of fibroglandular density. FINDINGS: 3D spot compression CC/MLO LEFT breast mammogram images submitted. Persistence of lobular density within the inferior LEFT breast with microcalcifications. Targeted LEFT breast ultrasound performed. At 6 o'clock 3 cm from the nipple, there is a lobular heterogeneous nodular structure containing punctate microcalcifications, more distinct on real-time imaging. This nodule measures 6 x 3 x 10 mm. Karen Tracy Henleydev PA MAMMO * XR MAMMO SUKHJINDER BILAT SCREEN (06/25/2024 11:35 AM CDT) Anatomical Region Laterality Modality BREASTS, Breast Left, Breast Right Bilateral Mammography 06/25/2024 3:04 PM CDT Impressions 06/25/2024 4:02 PM CDT LEFT breast asymmetry/mass. RECOMMENDATIONS: Additional mammographic views of the LEFT breast including 3D spot compression CC/MLO. LEFT breast ultrasound may also be required. A member of the breast health care team will contact the patient to schedule the required additional imaging appointment. BI-RADS Category 0: Incomplete - Need Additional Imaging Evaluation and/or Prior Mammograms for Comparison. Dictated by: Nestor Beck MD @06/25/2024 3:04:30 PM CRL:rcd PATIENTS: You will also receive a letter with your examination results in an easy to read format. ??If you have questions about your results, please contact your referring provider. Narrative 06/25/2024 4:02 PM CDT For Patients: As a result of the 21st Century Cures Act, medical imaging exams and procedure reports are released immediately into your electronic medical record. ??You may view this report before your referring provider. ?? If you have questions, please contact your health care provider. BILATERAL DIGITAL SCREENING MAMMOGRAM WITH COMPUTER-AIDED DETECTION AND TOMOSYNTHESIS, 06/25/2024 CLINICAL HISTORY: Routine screening exam. COMPARISON: None available TECHNIQUE: Digital mammogram in CC and MLO projections including computer-aided detection (CAD). Tomosynthesis was used in this interpretation. BREAST COMPOSITION: There are scattered areas of fibroglandular density. FINDINGS: RIGHT Breast: No suspicious findings. LEFT Breast: Nodular density within the LEFT breast at 12 o'clock 3 cm from the nipple. Karen MUNOZ MAMMO * SCAN-ELECTROCARDIOGRAM EKG (06/05/2024 12:00 AM CDT) Scanner OTHER * LAB TRACKING EVENT (05/28/2024 3:15 PM CDT) Other (Other) Client Collect / Unknown 05/28/2024 3:15 PM CDT 05/31/2024 3:26 PM CDT Janeth Broussard MD LAB BILL ONLY [facility] [address] * SUPPORT DBA THIN PREP PAP SCREEN IMAGED (05/28/2024 3:15 PM CDT) Case Report Gynecologic Cytology Report ? Case: [id number] ? Authorizing Provider: ??Janeth Broussard MD ?Collected: ? 05/28/2024 1515 ? Ordering Location: ? [facility] ?Received: ?06/03/2024 0733 ? First Screen: ?Jayant Bailon ? Rescreen: ?Kalyani Houser ? Specimen: ?SUPPORT DBA ThinPrep Vial Screening, Cervical ? 06/09/2024 11:26 AM CDT [facility] INTERPRETATION/ RESULT NEGATIVE FOR INTRAEPITHELIAL LESION OR MALIGNANCY (NIL) (none) 06/09/2024 11:26 AM [facility] IMEN ADEQUACY Satisfactory for evaluation Endocervical component present 06/09/2024 11:[address] [facility] HPV REQUEST HPV and PAP 06/09/2024 11:[address] CD[address] [facility] Last Pap Date 06/05/2018 06/09/2024 11:[address] [facility] Last Pap Result ASCUS 11:[address] [facility] Abnormal Pap or Melbeta Bx in last 5 years No 06/09/2024 11:26 AM CDT [facility] Menstrual Status Postmenopausal 06/09/2024 11:26 AM CDT [facility] Melbeta Bx Done Today No 06/09/2024 11:26 AM CDT [facility] Additional Information 06/09/2024 11:26 AM CDT [facility] Comment: Interpreted at [facility] - [address] [place] [address]. [facility] [address], [place] [address] Automated Review Successful 06/09/2024 11:26 AM CDT [facility] Comment:Specimen processed s uccessfully by automated lapel baster device, ThinPrep Imaging System, [employer] ANCILLARY TESTING SUPPORT DBA HPV Ordered, Please see separate report 06/09/2024 11:26 AM CDT [facility] Note The pap test is a screening technique, not a diagnostic procedure. It is used primarily to screen for squamous cancers and precursor lesions. Published studies have shown that it is subject to both false negative and false positive results. The pap test should not be used as the sole means to diagnose or exclude pre-malignant and malignant lesions. 06/09/2024 11:26 AM CDT [facility] Other (Cervical) 05/28/2024 3:15 PM CDT 06/03/2024 7:33 AM CDT Janeth Ginette Broussard MD PATHOLOGY/CYTOLOGY [facility] [address] [place] [address], * HPV HIGH RISK (05/28/2024 3:15 PM CDT) TYPE 16 Negative Negative 06/05/2024 10:59 AM CDT [facility] TYPE 18 Negative Negative 06/05/2024 10:59 AM CDT [facility] OTHER HIGH RISK TYPES Negative Negative 06/05/2024 10:59 AM CDT [facility] Other (Cervical) 05/28/2024 3:15 PM CDT 06/03/2024 7:33 AM CDT Narrative [facility] - 06/05/2024 10:59 AM CDT HPV types 16, 18, 31, 33, 35, 39, 45, 51, 52, 56, 58, 59, 66 and 68 DNA were undetectable or below the pre-set threshold. Methodology: Raúl Denisse 4800 HPV Test Janeth Broussard MD MICROBIOLOGY [facility] 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
--- OUTSIDE RECORDS SUMMARY | 2024-07-23 10:09 | XMS_ITS | Encounter Summary ---
Author Organization [facility] Address [address] [place] [address] Care Team Providers Care Shipping Technician Name Role Phone Marianela Back M.D. Primary Care Provider [phone]- [phone] Encounter Details Date Type Department Care Team (Late st Contact Info) Description 12/14/2015 Historical Ophthalmology [facility] Eduardo Todd O.D. 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 Gender Identity Female 05/21/2018 4:12 PM [...] eyeglass prescription CDM Reports - EYEGEN Id: [id number] Status: Fnl documented in this encounter Plan of Treatment Not on file documented as of this encounter Visit Diagnoses Not on filedocumented in this encounter Additional Health Concerns Infection Onset Date Last Indicated Resolved Time COVID19 Pending 11/18/2020 11/18/2020 11/18/2020 1 1:59 AM POLYMERIZATION KETTLE OPERATOR COVID19 Pending 11/18/2020 11/18/2020 11/18/2020 6 :45 PM POLYMERIZATION KETTLE OPERATOR COVID19 Pending 10/15/2021 10/15/2021 10/15/2021 8 :23 PM POLYMERIZATION KETTLE OPERATOR COVID19 Pending 01/29/2022 01/29/2022 01/29/2022 1 :59 PM CDT COVID19 Pending 03/28/2022 03/28/2022 03/28/2022 1 0:49 AM CDT COVID19 Pending 03/28/2022 03/28/2022 03/28/2022 1 :14 PM CDT Assessment Noted Time PHQ-9 Depression Total Score: 0 03/13/20 15 3:14 PM CDT documented as of this encounter Care Teams Shipping Technician Relationship Specialty Start Date End Date Marianela Back M.D. [address] [place] [phone] PCP - General Family Medicine 12/08/23 documented as of this encounter
--- OUTSIDE RECORDS SUMMARY | 2024-07-23 10:09 | XMS_ITS | Encounter Summary ---
Author Organization [facility] Address [address] [place] [address] Care Team Providers Care Clinical Field Specialist Name Role Phone Marianela Back M.D. Primary Care Provider +1- [phone] Reason for Visit * Reason Onset Date Comments Appt Request 06/04/2024 Basic skin test Encounter Details Date Type Department Care Team (Latest Contact Info) Description 06/04/2024 Clinical Communication Department of Allergy in [address] [phone] Leena Joe RKerry [address] [place] [address] Appt Request (Basic skin test) Social History Tobacco Use Types Packs/Day Years Used Date Smoking Tobacco: Never Smokeless Tobacco: Never Alcohol Use Standard Drinks/Week Comments Yes 2 (1 standard drink = 0.6 oz pur e alcohol) monthly [facility] Utilities Answer Date Recorded In the past 12 months has [employer], gas, oil, or water [employer] threatened to shut off services in your [...] your living situation today? 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 [address] [place] [phone] PCP - General Family Medicine 12/08/23 documented as of this encounter
--- OUTSIDE RECORDS SUMMARY | 2024-07-23 10:09 | XMS_ITS | Encounter Summary ---
Author Organization [facility] Address [address] [place] [address] Care Team Providers Care Sat Tutor Name Role Phone Marianela Back M.D. Primary Care Provider +1- [phone] Encounter Details Date Type Department Care Team (Late st Contact Info) Description 04/27/[address] [facility] Eduardo Todd O.D. 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 Gender Identity Female 05/21/2018 4:12 PM CDT [...] LE scl CDM Reports - EYECL Id: [id number] Status: Fnl documented in this encounter Plan of Treatment Not on file documented as of this encounter Visit Diagnoses Not on filedocumented in this encounter Additional Health Concerns Infection Onset Date Last Indicated Resolved Time COVID19 Pending 11/18/2020 11/18/2020 11/18/2020 1 1:59 AM SAP BUSINESS INTELLIGENCE CONSULTANT COVID19 Pending 11/18/2020 11/18/2020 11/18/2020 6 :45 PM SAP BUSINESS INTELLIGENCE CONSULTANT COVID19 Pending 10/15/2021 10/15/2021 10/15/2021 8 :23 PM SAP BUSINESS INTELLIGENCE CONSULTANT COVID19 Pending 01/29/2022 01/29/2022 01/29/2022 1 :59 PM CDT COVID19 Pending 03/28/2022 03/28/2022 03/28/2022 1 0:49 AM CDT COVID19 Pending 03/28/2022 03/28/2022 03/28/2022 1 :14 PM CDT Assessment Noted Time PHQ-9 Depression Total Score: 0 03/13/20 15 3:14 PM CDT documented as of this encounter Care Teams Sat Tutor Relationship Specialty Start Date End Date Marianela Back M.D. [address] [place] [phone] PCP - General Family Medicine 12/08/23 documented as of this encounter
--- OUTSIDE RECORDS SUMMARY | 2024-07-23 10:09 | XMS_ITS | Referral Summary ---
Author Organization [facility] Address [address] [place] [address] Care Team Providers Care Trial Mgr Name Role Phone Marianela Back M.D. Primary Care Provider +1- [phone] Source Comments Patient records contain information from all sites at [facility]. For routine questions regarding patient records, call [phone] during business hours, M-F 8:00 AM - 5:00 PM Central Time. Record requests for emergency care only can be directed to [phone] at any time.[facility] Encounters Date Type Department Care Team Description 06/04/2024 Clinical Communication Department of Allergy in [address] [phone] Leena Joe RDestiny. Appt Request (Basic skin [...] - MODE RNA (12 YEARS AND OLDER) [id number] 12/24/2023 SARS-COV-2 (COVID-19) - PFIZ ER (Discontinued)(12 [...] = 0.6 oz pur e alcohol) monthly [facility] Utilities Answer Date Recorded In the [...] your living situation today? I have a [facility] place to live 12/18/2023 Sex and Gender Information Value Date Recorded Sex Assigned at Female 12/18/2023 8:55 AM FABRICATION MANAGER Gender Identity Female 05/21/2018 4:12 PM CDT Sexual Orientation Straight 05/21/2018 4: 12 PM CDT Last Filed Vital Signs Vital Sign Reading Time Taken Comments Blood Pressure 130/82 12/29/2023 12:42 PM FABRICATION MANAGER Pulse 70 12/29/2023 12:42 PM FABRICATION MANAGER Temperature 36.9 ??C (98.4 ??F) 12/24/2023 1 1:57 AM FABRICATION MANAGER Respiratory Rate 16 06/02/2023 1:48 PM CDT Oxygen Saturation 98% 12/24/2023 11: 57 AM FABRICATION MANAGER Inhaled Oxygen Concentration - - Weight 79.4 kg (175 lb 0.7 oz) 12/29/19 12:42 PM FABRICATION MANAGER with shoes Height 166.5 cm (5' 5.55) 12/29/2023 1 2:42 PM FABRICATION MANAGER with shoes Body Mass Index 28.64 12/29/2023 12:42 PM FABRICATION MANAGER Plan of Treatment Not on file Procedures Procedure Name Priority Date/Time Associated Diagnosis Comments THYROID FUNCTION CASCADE, S Routine 12/24/2023 12:52 PM FABRICATION MANAGER Hypothyroidism COMPREHENSIVE METABOLIC PANEL, S/P Routine 12/03/2021 11:38 AM FABRICATION MANAGER Bipolar I Mixed Mild (HCC) Hypothyroidism OUTSIDE MG MAMMOGRAM Routine 03/07/2021 3:20 PM CDT PATHOLOGY JOURNEYMAN SHEET METAL WORKER CYTOLOGY Routine 11:21 AM CDT Pap Smear Examination COLONOSCOPY Routine 04/09/2016 from Last 3 Months or Most Recently Relevant to Health Maintenance Results * Thyroid Function [place] (12/24/2023 12:52 PM FABRICATION MANAGER) TSH, Sensitive 0.8 0.3 - 4.2 mIU/L 12/24/2023 1:51 PM FABRICATION MANAGER CNFL Blood (Blood, Venous) 12/24/2023 12:52 PM FABRICATION MANAGER 12/24/2023 12:53 PM FABRICATION MANAGER Marianela Back M.D. LAB BLOOD ADD-ON [facility] [address] [place] [id number], [facility] CNFL [facility] in [address] [address] * (ABNORMAL) Comprehensive Metabolic Panel (12/03/2021 11:38 AM FABRICATION MANAGER) Potassium, P 4.1 3.6 - 5.2 mmol/L 12/03/2021 12:30 PM FABRICATION MANAGER LCX Sodium, P 137 135 - 145 mmol/L 12/03/2021 12:30 PM FABRICATION MANAGER LCX Chloride, P 103 98 - 107 mmol/L 12/03/2021 12:30 PM FABRICATION MANAGER LCX Bicarbonate, P 20(L) 22 - 29 mmol/L 12/03/2021 12:30 PM FABRICATION MANAGER LCX Anion Gap, P 14 7 - 15 12/03/2021 12:30 PM FABRICATION MANAGER LCX BUN (Blood Urea Nitrogen), P 9 6 - 21 mg/dL 12/03/2021 12:30 PM FABRICATION MANAGER LCX Creatinine 1.12(H) 0.59 - 1.04 mg/dL 12/03/2021 12:30 PM FABRICATION MANAGER LCX eGFR-Black/ 60 >=60 mL/min/BS A 12/03/2021 12:30 PM FABRICATION MANAGER LCX Comment: ----ADDITIONAL INFORMATION---- Estimated GFR calculated using the 2009 CKD_EPI creatinine equation. eGFR Non-Black/ 52(L) >=60 mL/min/BS A 12/03/2021 12:30 PM FABRICATION MANAGER LCX Comment: ----ADDITIONAL INFORMATION---- Estimated GFR calculated using the 2009 CKD_EPI creatinine equation. Calcium, Total, P 9.6 8.8 - 10.2 mg/dL 12/03/2021 12:30 PM FABRICATION MANAGER LCX Glucose, P 118 70 - 140 mg/dL 12/03/2021 12:30 PM FABRICATION MANAGER LCX Protein, Total, P 7.5 6.3 - 7.9 g/dL 12/03/2021 12:30 PM FABRICATION MANAGER LCX Albumin, P 4.6 3.5 - 5.0 g/dL 12/03/2021 12:30 PM FABRICATION MANAGER LCX Aspartate Aminotransferase (AST), P 24 8 - 43 U/L 12/03/2021 12:30 PM FABRICATION MANAGER LCX Alkaline Phosphatase, P 111(H) 35 - 104 U/L 12/03/2021 12:30 PM FABRICATION MANAGER LCX Alanine Aminotransferase (ALT), P 20 7 - 45 U/L 12/03/2021 12:30 PM FABRICATION MANAGER LCX Bilirubin, Total, P 0.5 <=1.2 mg/dL 12/03/2021 12:30 PM FABRICATION MANAGER LCX Blood (Blood, Venous) 12/03/2021 11:38 AM FABRICATION MANAGER 12/03/2021 11:53 AM FABRICATION MANAGER Su Porter M.D. LAB BLOOD ADD-ON [facility] [address] [place] [address], [facility] LCX [facility] [place] [address] [place] [address] * MAMMO [place] MED[place] DIGITAL TOMOSYNTHESIS SCREENING BILATERAL-Outside Mammogram (03/07/2021 [...] Provider Not In System IMG BI PROCEDURES [facility] NA * Pathology JOURNEYMAN SHEET METAL WORKER Cytology (05/21/2018 11:21 AM CDT) PATHOLOGY JOURNEYMAN SHEET METAL WORKER CYTOLOGY Patient Name: LEXI MCELROY MR#: [id number] Location: ??[facility] Date Reported: ??06/05/2018 15:13 Specimen #[id number] Other Clinical Conditions: Pap Type: Routine Pap Clinical History/Status (Select all that apply): Post Menopausal Ancillary Testing (Select all that apply): HPV with Genotyping, PCR, ThinPrep (order separately in [facility] [id number]) Source: ThinPrep Liquid Based Pap Test, cervical/endocer [...] Patricia MD ([id number]) Date Reported:06/05/20 18 15:13 [facility] [address] [facility], ??[place] [address] CPT Code(s) A: 949268950, 50524 The cervico-vaginal smear is a screening test [...] LAB PAP COPATH ORDERABLES JESUS ZUÑIGA [address] [place] [address], [facility] * Colonoscopy (04/09/2016) EXT Colonoscopy Abnormal - See Scanned Report for Details Normal - See Scanned Report for Details, HIMS - Report Received and Scanned Comment:Colonoscopy done in- house. Recall 5 years. Historical Provider GI PROCEDURE ORDERAB LES from Last 3 Months or Most Recently Relevant to Health Maintenance Care Teams Trial Mgr Relationship Specialty Start Date End Date Marianela Back M.D. [address] [place] [phone] PCP - General Family Medicine 12/08/23
--- OUTSIDE RECORDS SUMMARY | 2024-07-23 10:09 | XMS_ITS ---
Author Organization [facility] Address [address] [place] [address] Care Team Providers Care Global Director Air And Climate Change Name Role Phone Unavailable Unavailable Unavailable Surgery Details Not on file Complications Check Surgery Details section. Procedure Estimated Blood Loss Check Surgery Details section. Procedure Findings Check Surgery Details section. Procedure Specimens Taken Check Surgery Details section.
--- OUTSIDE RECORDS SUMMARY | 2024-07-23 10:09 | XMS_ITS | Encounter Summary ---
Author Organization [facility] Address [address] [place] [address] Care Team Providers Care Keg Washer Name Role Phone Marianela Back M.D. Primary Care Provider +1- [phone] Encounter Details Date Type Department Care Team (Late st Contact Info) Description 12/14/2015 Historical Ophthalmology [facility] Eduardo Todd O.D. [address] [place] [phone] Social History Tobacco Use Types Packs/Day Years Used Date Smoking Tobacco: Never Assessed Sex and Gender Information Value Date Recorded Sex Assigned at Female 12/18/2023 8:55 AM OPERATIONS SUPERVISOR 2ND SHIFT Gender Identity Female 05/21/2018 4:12 PM CDT Sexual Orientation Straight 05/21/2018 4: 12 PM CDT documented as of this encounter Progress Notes * Eduardo Todd O.D. - 12/14/2015 4:14 PM CST Contact Lens Exam HISTORY OF PRESENT ILLNESS vision isn't that good with contacts but likes to wear them. CDM Reports - EYECL Id: [id number] Status: Fnl documented in this encounter Plan of Treatment Not on file documented as of this encounter Visit Diagnoses Not on filedocumented in this encounter Additional Health Concerns Infection Onset Date Last Indicated Resolved Time COVID19 Pending 11/18/2020 11/18/2020 11/18/2020 1 1:59 AM OPERATIONS SUPERVISOR 2ND SHIFT COVID19 Pending 11/18/2020 11/18/2020 11/18/2020 6 :45 PM OPERATIONS SUPERVISOR 2ND SHIFT COVID19 Pending 10/15/2021 10/15/2021 10/15/2021 8 :23 PM OPERATIONS SUPERVISOR 2ND SHIFT COVID19 Pending 01/29/2022 01/29/2022 01/29/2022 1 :59 PM CDT COVID19 Pending 03/28/2022 03/28/2022 03/28/2022 1 0:49 AM CDT COVID19 Pending 03/28/2022 03/28/2022 03/28/2022 1 :14 PM CDT Assessment Noted Time PHQ-9 Depression Total Score: 0 03/13/20 15 3:14 PM CDT documented as of this encounter Care Teams Keg Washer Relationship Specialty Start Date End Date Marianela Back M.D. [address] [place] [phone] PCP - General Family Medicine 12/08/23 documented as of this encounter
--- OUTSIDE RECORDS SUMMARY | 2024-07-23 10:09 | XMS_ITS | Clinical Summary ---
Author Organization [facility] Address [address] [place] [address] Care Team Providers Care Snow Plow Tractor Operator Name Role Phone Marianela Back M.D. Primary Care Provider +1- [phone] Source Comments Patient records contain information from all sites at [facility]. For routine questions regarding patient records, call [phone] during business hours, M-F 8:00 AM - 5:00 PM Central Time. Record requests for emergency care only can be directed to [phone] at any time.[facility] Allergies Active Allergy Reactions Criticality Noted Date [...] 06/04/2024 Clinical Communication Department of Allergy in [address] [phone] Leena Joe, REsterN. Appt Request (Basic skin test) from Last 3 Months Immunizations Name Administration Dates Next Due DTaP (Infanrix, Tripedia) 06/20/2008 Influenza, Quadrivalent, Adjuvanted, Preservativ e Free 10/29/2022 Influenza, Unspecified 09/19/2014,08/17/2012 OPV 08/27/1973 SARS-COV-2 (COVID-19) - MODE RNA (12 YEARS AND OLDER) [id number] 12/24/2023 SARS-COV-2 (COVID-19) - PFIZ ER (Discontinued)(12 [...] = 0.6 oz pur e alcohol) monthly [facility] Utilities Answer Date Recorded In the past [...] your living situation today? [facility] 12/18/2023 Sex and Gender Information Value Date Recorded Sex Assigned at Female 12/18/2023 8:55 AM MULTIFOCAL LENS INSPECTOR Gender Identity Female 05/21/2018 4:12 PM CDT Sexual Orientation Straight 05/21/2018 4: 12 PM CDT Last Filed Vital Signs Vital Sign Reading Time Taken Comments Blood Pressure 130/82 12/29/2023 12:42 PM MULTIFOCAL LENS INSPECTOR Pulse 70 12/29/2023 12:42 PM MULTIFOCAL LENS INSPECTOR Temperature 36.9 ??C (98.4 ??F) 12/24/2023 1 1:57 AM MULTIFOCAL LENS INSPECTOR Respiratory Rate 16 06/02/2023 1:48 PM CDT Oxygen Saturation 98% 12/24/2023 11: 57 AM MULTIFOCAL LENS INSPECTOR Inhaled Oxygen Concentration - - Weight 79.4 kg (175 lb 0.7 oz) 12/29/19 12:42 PM MULTIFOCAL LENS INSPECTOR with shoes Height 166.5 cm (5' 5.55) 12/29/2023 1 2:42 PM MULTIFOCAL LENS INSPECTOR with shoes Body Mass Index 28.64 12/29/2023 12:42 PM MULTIFOCAL LENS INSPECTOR Plan of Treatment Health Maintenance Due Date Last Done Comments Bone Density Scan (Osteoporo sis Screen) 1956 CT Colonography 1955 Cologuard 1955 Pneumococcal vaccine (65+ ye ars) (1 of 2 - PCV) 1962 Zoster Vaccines (1 of 2) 2006 Colonoscopy 04/09/2021 04/09/2016, 04/09/2016 Colorectal Cancer Surveillance 04/09/2021 Mammogram 03/13/2022 03/13/2021, 04/2 11/2020, 03/07/2021, Additional history exists COVID-19 Vaccine (2022-2 4 [...] 05/21/2028 05/21/2018, 06/20/2008, 06/20/2008, Additional history exists Fall Risk Screen (Annual) Completed 12/24/2023 Depression Screening (Annual PHQ-2) Completed 12/29/2023, 12/24/2023 Cervical Cancer Screening Discontinued 2023, 04/25/2020, 05/21/2018, Additional history exists Procedures Procedure Name Priority Date/Time Associated Diagnosis Comments THYROID FUNCTION CASCADE, S Routine 12/24/2023 12:52 PM MULTIFOCAL LENS INSPECTOR Hypothyroidism COMPREHENSIVE METABOLIC PANEL, S/P Routine 12/03/2021 11:38 AM MULTIFOCAL LENS INSPECTOR Bipolar I Mixed Mild (HCC) Hypothyroidism OUTSIDE MG MAMMOGRAM Routine 03/07/2021 3:20 PM CDT PATHOLOGY CONSTRUCTION TECH CYTOLOGY Routine 8 11:21 AM CDT Pap Smear Examination COLONOSCOPY Routine 04/09/2016 from Last 3 Months or Most Recently Relevant to Health Maintenance Results * Thyroid Function [place] (12/24/2023 12:52 PM MULTIFOCAL LENS INSPECTOR) TSH, Sensitive 0.8 0.3 - 4.2 mIU/L 12/24/2023 1:51 PM MULTIFOCAL LENS INSPECTOR CNFL Blood (Blood, Venous) 12/24/2023 12:52 PM MULTIFOCAL LENS INSPECTOR 12/24/2023 12:53 PM MULTIFOCAL LENS INSPECTOR Marianela Back M.D. LAB BLOOD ADD-ON [facility] [address] [place] [id number], [facility] CNFL [facility] in [address] [address] * (ABNORMAL) Comprehensive Metabolic Panel (12/03/2021 11:38 AM MULTIFOCAL LENS INSPECTOR) Potassium, P 4.1 3.6 - 5.2 mmol/L 12/03/2021 12:30 PM MULTIFOCAL LENS INSPECTOR LCX Sodium, P 137 135 - 145 mmol/L 12/03/2021 12:30 PM MULTIFOCAL LENS INSPECTOR LCX Chloride, P 103 98 - 107 mmol/L 12/03/2021 12:30 PM MULTIFOCAL LENS INSPECTOR LCX Bicarbonate, P 20(L) 22 - 29 mmol/L 12/03/2021 12:30 PM MULTIFOCAL LENS INSPECTOR LCX Anion Gap, P 14 7 - 15 12/03/2021 12:30 PM MULTIFOCAL LENS INSPECTOR LCX BUN (Blood Urea Nitrogen), P 9 6 - 21 mg/dL 12/03/2021 12:30 PM MULTIFOCAL LENS INSPECTOR LCX Creatinine 1.12(H) 0.59 - 1.04 mg/dL 12/03/2021 12:30 PM MULTIFOCAL LENS INSPECTOR LCX eGFR-Black/ 60 >=60 mL/min/BS A 12/03/2021 12:30 PM MULTIFOCAL LENS INSPECTOR LCX Comment: ----ADDITIONAL INFORMATION---- Estimated GFR calculated using the 2009 CKD_EPI creatinine equation. eGFR Non-Black/ 52(L) >=60 mL/min/BS A 12/03/2021 12:30 PM MULTIFOCAL LENS INSPECTOR LCX Comment: ----ADDITIONAL INFORMATION---- Estimated GFR calculated using the 2009 CKD_EPI creatinine equation. Calcium, Total, P 9.6 8.8 - 10.2 mg/dL 12/03/2021 12:30 PM MULTIFOCAL LENS INSPECTOR LCX Glucose, P 118 70 - 140 mg/dL 12/03/2021 12:30 PM MULTIFOCAL LENS INSPECTOR LCX Protein, Total, P 7.5 6.3 - 7.9 g/dL 12/03/2021 12:30 PM MULTIFOCAL LENS INSPECTOR LCX Albumin, P 4.6 3.5 - 5.0 g/dL 12/03/2021 12:30 PM MULTIFOCAL LENS INSPECTOR LCX Aspartate Aminotransferase (AST), P 24 8 - 43 U/L 12/03/2021 12:30 PM MULTIFOCAL LENS INSPECTOR LCX Alkaline Phosphatase, P 111(H) 35 - 104 U/L 12/03/2021 12:30 PM MULTIFOCAL LENS INSPECTOR LCX Alanine Aminotransferase (ALT), P 20 7 - 45 U/L 12/03/2021 12:30 PM MULTIFOCAL LENS INSPECTOR LCX Bilirubin, Total, P 0.5 <=1.2 mg/dL 12/03/2021 12:30 PM MULTIFOCAL LENS INSPECTOR LCX Blood (Blood, Venous) 12/03/2021 11:38 AM MULTIFOCAL LENS INSPECTOR 12/03/2021 11:53 AM MULTIFOCAL LENS INSPECTOR Su Porter M.D. LAB BLOOD ADD-ON [facility] [address] [place] [address], [facility] LCX [facility] [place] [address] [place] [address] * MAMMO [place] DIGITAL TOMOSYNTHESIS SCREENING [...] Provider Not In System IMG BI PROCEDURES IIOH NA * Pathology CONSTRUCTION TECH Cytology (05/21/2018 11:21 AM CDT) PATHOLOGY CONSTRUCTION TECH CYTOLOGY Patient Name: LEXI MCELROY MR#: [id number] Location: ??[facility] Date Reported: ??06/05/2018 15:13 Specimen #[id number] Other Clinical Conditions: Pap Type: Routine Pap Clinical History/Status (Select all that apply): Post Menopausal Ancillary Testing (Select all that apply): HPV with Genotyping, PCR, ThinPrep (order separately [facility] [id number]) Source: ThinPrep Liquid Based Pap Test, cervical/endocer [...] CJS 06/01/2018 Electronically Signed Out ? Valerie Patriica MD ([id number]) Date Reported:06/05/20 18 15:13 [facility] [address] [facility], ??[place] [address] CPT Code(s) A: 525112868, 46861 The cervico-vaginal smear is a screening test [...] a screening test for detecting endometrial pathology. [facility] [employer] Thin Prep Vial (Cervix/Endocerv ix) 05/21/2018 11:21 AM CDT 05/25/2018 11:21 AM CDT Betty Argueta M.D. LAB PAP COPATH ORDERABLES [facility] [address] [place] [address], [facility] * Colonoscopy (04/09/2016) EXT Colonoscopy Abnormal - See Scanned Report for Details Normal - See Scanned Report for Details, HIMS - Report Received and Scanned Comment:Colonoscopy done in- house. Recall 5 years. Historical Provider GI PROCEDURE ORDERAB LES from Last 3 Months or Most Recently Relevant to Health Maintenance Care Teams Snow Plow Tractor Operator Relationship Specialty Start Date End Date Marianela Back M.D. NPDon: [phone] [address] [place] [phone] PCP - General Family Medicine 12/08/23
--- OUTSIDE RECORDS SUMMARY | 2024-07-23 10:09 | XMS_ITS | Encounter Summary ---
Author Organization [facility] Address [address] [place] [address] Care Team Providers Care Bottom Worker Name Role Phone Marainela Back M.D. Primary Care Provider +1- [phone] Encounter Details Date Type Department Care Team (Late st Contact Info) Description 01/14/2017 Historical Ophthalmology [facility] Eduardo Todd O.D. [address] [place] [phone] Social History Tobacco Use Types Packs/Day Years Used Date Smoking Tobacco: Never Sex and Gender Information Value Date Recorded Sex Assigned at Female 12/18/2023 8:55 AM COMMUNICATIONS ENGINEERING TECHNICIAN Gender Identity Female 05/21/2018 4:12 PM [...] eyeglass prescription\ CDM Reports - EYEGEN Id: [id number] Status: Fnl documented in this encounter Plan of Treatment Not on file documented as of this encounter Visit Diagnoses Not on filedocumented in this encounter Additional Health Concerns Infection Onset Date Last Indicated Resolved Time COVID19 Pending 11/18/2020 11/18/2020 11/18/2020 1 1:59 AM COMMUNICATIONS ENGINEERING TECHNICIAN COVID19 Pending 11/18/2020 11/18/2020 11/18/2020 6 :45 PM COMMUNICATIONS ENGINEERING TECHNICIAN COVID19 Pending 10/15/2021 10/15/2021 10/15/2021 8 :23 PM COMMUNICATIONS ENGINEERING TECHNICIAN COVID19 Pending 01/29/2022 01/29/2022 01/29/2022 1 :59 PM CDT COVID19 Pending 03/28/2022 03/28/2022 03/28/2022 1 0:49 AM CDT COVID19 Pending 03/28/2022 03/28/2022 03/28/2022 1 :14 PM CDT Assessment Noted Time PHQ-9 Depression Total Score: 0 03/13/20 15 3:14 PM CDT documented as of this encounter Care Teams Bottom Worker Relationship Specialty Start Date End Date Marianela Back M.D. [address] [place] [phone] PCP - General Family Medicine 12/08/23 documented as of this encounter
--- OUTSIDE RECORDS SUMMARY | 2024-07-23 10:09 | XMS_ITS | Encounter Summary ---
Author Organization [facility] Address [address] [place] [address] Care Team Providers Care Armor Officer Name Role Phone Marianela Back M.D. Primary Care Provider +1- [phone] Encounter Details Date Type Department Care Team (Late st Contact Info) Description 01/14/2017 Historical Ophthalmology [facility] Eduardo Todd O.D. [address] [place] [phone] Social History Tobacco Use Types Packs/Day Years Used Date Smoking Tobacco: Never Sex and Gender Information Value Date Recorded Sex Assigned at Female 12/18/2023 8:55 AM FLY TIER Gender Identity Female 05/21/2018 4:12 PM CDT Sexual Orientation Straight 05/21/2018 4: 12 PM CDT documented as of this encounter Progress Notes * Eduardo Todd O.D. - 01/14/2017 1:33 PM CST Contact Lens Exam HISTORY OF PRESENT ILLNESS likes fit not vision of current contacts . last wore cl's 2 days ago CDM Reports - EYECL Id: [id number] Status: Fnl documented in this encounter Plan of Treatment Not on file documented as of this encounter Visit Diagnoses Not on filedocumented in this encounter Additional Health Concerns Infection Onset Date Last Indicated Resolved Time COVID19 Pending 11/18/2020 11/18/2020 11/18/2020 1 1:59 AM FLY TIER COVID19 Pending 11/18/2020 11/18/2020 11/18/2020 6 :45 PM FLY TIER COVID19 Pending 10/15/2021 10/15/2021 10/15/2021 8 :23 PM FLY TIER COVID19 Pending 01/29/2022 01/29/2022 01/29/2022 1 :59 PM CDT COVID19 Pending 03/28/2022 03/28/2022 03/28/2022 1 0:49 AM CDT COVID19 Pending 03/28/2022 03/28/2022 03/28/2022 1 :14 PM CDT Assessment Noted Time PHQ-9 Depression Total Score: 0 03/13/20 15 3:14 PM CDT documented as of this encounter Care Teams Armor Officer Relationship Specialty Start Date End Date Marianela Back M.D. [address] [place] [phone] PCP - General Family Medicine 12/08/23 documented as of this encounter
--- NOTE | 2024-07-23 10:15 | CRLHL7_ITS ---
For Patients: As a result of the Century Cures Act, medical imaging exams and procedure reports are released immediately into your electronic medical record. You may view this report before your referring provider. If you have questions, please contact your health care provider. ULTRASOUND-GUIDED BREAST BIOPSY AND POST-BIOPSY DIGITAL MAMMOGRAM FOR BIOPSY MARKER PLACEMENT CLINICAL HISTORY: Indeterminate nodular area. COMPARISON STUDIES: 06/25/2024, 07/15/2024. TECHNIQUE: Real-time ultrasound with image documentation was used for targeting the breast lesion. Core biopsy specimens were obtained using an automated gun with an 18-gauge biopsy needle. Post-biopsy CC and ML digital mammograms were obtained to document position of the biopsy marker. CONSENT and TIME OUT: The procedure, risks, and alternatives were explained to the patient and a consent was signed. [place] Protocol was followed including pre-procedure verification that relevant information/documentation was available, reviewed and properly matched to the patient; consent accurate and complete; and equipment and supplies available. Time Out was conducted just prior to starting procedure to verify the four required elements: patient identity, correct side/site marked (if applicable), procedure, relevant images/results properly labeled and displayed (if applicable). PROCEDURE: The patient was positioned supine on the ultrasound table. The breast was prepped with ChloraPrep. 6 cc of 1 percent lidocaine used for local anesthesia. Core samples were obtained. A sterile metal biopsy clip was placed percutaneously to khris the lesion position within the breast. The specimens were placed in 10% formalin and sent to the pathology department. Pressure was held on the biopsy site until all bleeding subsided. The skin incision was closed with Steri-Strips. An ice pack was positioned over the biopsy site. Post-biopsy instructions were reviewed with the patient, and a written copy was given to her. LATERALITY: LEFT breast. LESION: Hypoechoic nodular area with microcalcifications measuring 6 x 3 x 10 millimeters at 6 o`clock 3 cm from the nipple. SUSPICION FOR MALIGNANCY: Intermediate. NUMBER OF SAMPLES: 5. BIOPSY CLIP SHAPE: Oval. PROXIMITY OF CLIP TO TARGET: Within the lesion. IMPRESSION: Ultrasound-guided breast biopsy. When the pathology report is available, an addendum to this report will be made. ACR not applicable Dictated by Nestor Beck MD @ 07/23/2024 11:24:12 AM jj/Dictated by: Nestor Beck MD @ 07/23/2024 11:24:00 AM (Electronically Signed)
--- NOTE | 2024-07-23 11:00 | CRLHL7_ITS ---
For Patients: As a result of the Century Cures Act, medical imaging exams and procedure reports are released immediately into your electronic medical record. You may view this report before your referring provider. If you have questions, please contact your health care provider. PLEASE SEE ULTRASOUND-GUIDED LEFT BREAST BIOPSY PERFORMED SAME DAY CRL:josemanuel abernathy/Dictated by: Nestor Beck MD @ 07/23/2024 11:21:00 AM (Electronically Signed)
== END 2024-07-23 10:04 | disposition home or self-care (01) ==
PROVIDERS: PCP Family Medicine
DX: N63.20 Unspecified lump in the left breast, unspecified quadrant (principal); R92.8 Other abnormal and inconclusive findings on diagnostic imaging of breast
CPT/HCPCS: 19083; 77065; 88305; 88341; 88342; A4648; A4649

== ENCOUNTER 2024-11-08 12:40 | Observation (INO) | payer OTHER, SELFPAY ==
[2024-11-08 12:44] VITALS: BP 99/68; PULSE 68; RESP 18; TEMP 36.6; O2SAT 96
--- NOTE | 2024-11-08 13:41 | ED_ITS ---
HPI - Neuro Symptoms/Deficit General Date Seen: 11/08/24 Chief Complaint: Neuro Symptoms/Altered Deficit Stated Complaint: Poss mini stroke advised to be seen by tim Time Seen by Provider: 11/08/24 13:28 Source: patient Mode of arrival: ambulatory Limitations: no limitations History of Present Illness HPI Narrative: Lexi is a very pleasant 69-year-old female with history of bipolar disorder currently on clonazepam, lithium and trazodone who comes to the emergency room after experiencing approximately 1 hour of difficulty speaking yesterday. Patient notes that she had been over had her daughter's house and playing with her grandson and had just taken her medications. I she then noted that she was having a hard time speaking. She states because of her bipolar and her age she does understand that sometimes she has a hard time with word finding but notes this was entirely different stating that she could not get any of her words out. She notes no numbness or tingling of the extremities, difficulty walking, headache, visual changes, chest pain, numbness or tingling during this event. It lasted almost an hour and then went away and has not returned. Patient does not know her cholesterol levels, does not smoke or use alcohol excessively, has not experienced any recent falls or trauma. She was alert and oriented during this event. She knew which she wanted to say in her mind but could not get it out. Related Data Home Medications ?Medication ?Instructions ?Recorded ?Confirmed ibuprofen 200 mg capsule 600 mg PO Q4H PRN 11/13/23 09/07/24 famotidine 20 mg tablet 20 mg PO BID 11/08/24 11/08/24 fexofenadine 180 mg tablet 180 mg PO DAILY 11/08/24 11/08/24 (Allergy Relief (fexofenadine)) fluticasone propionate 50 1 spray intranasal DAILY 11/08/24 11/08/24 mcg/actuation nasal spray,suspension Previous Rx's ?Medication ?Instructions ?Recorded levothyroxine 75 mcg tablet 75 mcg PO DAILY Hypothyroidism #90 06/11/23 tabs lithium carbonate 150 mg capsule 150 mg PO QDAY #90 caps 08/01/23 lithium carbonate 300 mg capsule 300 mg PO BID Bipolar Disorder #90 08/01/23 caps trazodone 100 mg tablet 100 mg PO HS PRN insomnia #90 tabs 12/09/23 ibuprofen 600 mg tablet 600 mg PO TID PRN pain #30 tabs 03/23/24 clonazepam 1 mg tablet 1 mg PO BID Bipolar #60 tabs 04/13/24 Allergies Allergy/AdvReac Type Severity Reaction Status Date / Time No Known Drug Allergies Allergy Verified 11/08/24 15:51 Review of Systems Status of ROS: Reports: 6 or more systems reviewed and unremarkable except as noted in History and below Const: Denies: fever, chills or fatigue Eyes: Denies: change in vision, blurry vision or seeing flashes ENMT: Reports: nasal congestion (Chronic); Denies: throat pain, neck pain or vertigo Cardio: Denies: chest pain, swelling of feet/ankles, lightheadedness or shortness of breath with exertion Resp: Denies: shortness of breath or cough GI: Denies: nausea or vomiting : Denies: painful urination Musculo: Denies: neck pain Neuro: Denies: headache, numbness in extremities, weakness in extremities, lack of coordination, dizziness, vertigo or confusion Endo: Denies: fatigue PFSH PFSH Medical History Cognitive dysfunction ?F09 - Unspecified mental disorder due to known physiological condition (ICD- 10) Sinusitis ?J32.9 - Chronic sinusitis, unspecified (ICD-10) Hypothyroidism ?E03.9 - Hypothyroidism, unspecified (ICD-10) Bipolar 1 disorder ?F31.9 - Bipolar disorder, unspecified (ICD-10) Social History Smoking Status: Never smoker Second hand tobacco smoke exposure: No How often do you have a drink containing alcohol: monthly or less AUDIT-C Alcohol total score: 1 Non-prescribed substance use: denies use service: Yes Exam Narrative: Exam Narrative: Lexi is alert and oriented. Very pleasant woman. Speech is normal in GCS is 15. EOM is full. No evidence of ptosis. Eyebrow raise, smile all symmetrical. Tongue is midline. Neck is supple. Heart with regular rate and rhythm and lungs are clear bilaterally. Abdomen soft nontender. All extremities with normal strength and sensation. Romberg is negative. NIH SS 0. Const: Vital Signs, click to edit/add: Vital Signs - 24 hr 11/08/24 12:44 11/08/24 18:32 Temperature 97.9 F 98.6 F Pulse Rate [Pulse Oximeter] 68 53 L Respiratory Rate 18 18 Blood Pressure [Ri ght Upper Arm] 99/68 130/83 Pulse Oximetry 96 99 Oxygen Delivery Me thod Room Air Room Air Documenting provider has reviewed patient's vital signs: yes Course Course ED Course: Differential diagnosis includes but is not limited to TIA, stroke, atypical seizure. At this time do think she really needs imaging with CT of the head, CT of the head and neck. Will speak to Neurology once these results are returned. CBC, comprehensive, EKG, saline lock ordered at this time. Reevaluation(s) Reevaluation #1: Patient has remained stable in the ED throughout the day. Consultations Consultation #1: I had the pleasure of speaking with from [facility]. Does note no evidence of stroke on CT but there is some concern about narrowing of vessels on the left side of brain. Does recommend hospitalization with a.m. MRI of the brain. Vital Signs Vital signs: Initial Vital Signs Temperature 97.9 F 11/08/24 12:44 Temperature Source Temporal Artery Scan 11/08/24 12:44 Pulse Rate 68 11/08/24 12:44 Respiratory Rate 18 11/08/24 12:44 Blood Pressure 99/68 11/08/24 12:44 Blood Pressure Mean 78 11/08/24 12:44 Blood Pressure Position Sitting 11/08/24 12:44 Pulse Oximetry 96 11/08/24 12:44 Oxygen Delivery Method Room Air 11/08/24 12:44 Vital Signs Temperature 97.9 F 11/08/24 12:44 Pulse Rate 68 11/08/24 12:44 Respiratory Rate 18 11/08/24 12:44 Blood Pressure 99/68 11/08/24 12:44 Pulse Oximetry 96 11/08/24 12:44 Oxygen Delivery Method Room Air 11/08/24 12:44 Temperature 98.6 F 11/08/24 18:32 Pulse Rate 53 L 11/08/24 18:32 Respiratory Rate 18 11/08/24 18:32 Blood Pressure 130/83 11/08/24 18:32 Pulse Oximetry 99 11/08/24 18:32 Oxygen Delivery Method Room Air 11/08/24 18:32 Medications Administered Medications: Generic Name Dose Route Start Last Admin Trade Name Tayler PRN Reason Stop Dose Admin Aspirin 324 mg 11/08/24 18:18 11/08/24 18:29 Aspirin 81 Mg Tab.Chew PO 11/08/24 18:19 324 mg ONCE ONE Administration MDM - Neuro Symptoms/Deficit MDM Narrative Medical decision making narrative: 1. Neurological complaints-patient had a 1 hour episode of difficulty speaking aphasia and ?speaking gibberish?. Normal exam here in the ED and patient remained stable throughout the stay. Patient will be admitted for overnight observation continued on a plant clerk, given aspirin and scheduled for MRI tomorrow morning. At this time no history of epilepsy, seizure, arrhythmia. 2. History of bipolar disorder-stable 3. Incidental finding left mainstem bronchus narrowing-noted on the imaging on the neck. Suggest dedicated CT of the chest. Given the fact patient has already had contrast today would recommend this to be done tomorrow morning. I spoke to the hospitalist in regards to this finding. 3. Disposition admit at this time under the care of Dr. Wheeler. Medical Records Attestation: I reviewed the patient's medical records. Lab Data Attestation: I reviewed the patient's lab results. Labs: Lab Results 11/08/24 11/08/24 Range/Units 14:12 14:50 WBC 6.67 (4.50-11.00) K/uL RBC 3.74 L (4.00-5.20) m/uL Hgb 11.5 L (12.0-16.0) gm/dL Hct 36.8 (33.0-51.0) % MCV 98 (80-100) fL MCH 31 (26-34) pg MCHC 31 L (32-36) gm/dL RDW Coeff of Priyanka 13.3 (11.5-15.5) % Plt Count 269 (140-440) K/uL Neut % (Auto) 61.9 (42.0-72.0) % Lymph % (Auto) 28.5 (20-44) % [place] % (Auto) 6.4 (0.0-11.0) % Eos % (Auto) 2.7 (0.0-7.0) % Baso % (Auto) 0.4 (0.0-3.0) % Neut # (Auto) 4.12 (1.7-7.0) K/uL Lymph # (Auto) 1.90 (0.90-2.90) K/uL [place] # (Auto) 0.40 (0.00-0.90) K/UL Eos # (Auto) 0.18 (0.00-0.50) K/uL Baso # (Auto) 0.03 (0.00-0.30) K/uL Abs Immat Gran (auto) 0.01 (0.00-0.30) K/uL Imm/Tot Granulo (auto) 0.1 % Sodium 139 (135-149) mmol/L Potassium 3.9 (3.6-5.1) mmol/L Chloride 109 (96-114) mmol/L Carbon Dioxide 25 (20-32) mmol/L Anion Gap 5 L (7-15) mEq/L BUN 10 (7-30) mg/dL Creatinine 1.1 (0.5-1.5) mg/dL Estimated GFR 55 ml/min Glucose 79 (60-115) mg/dL Calcium 9.7 (8.4-10.6) mg/dL Total Bilirubin 0.7 (0.1-1.5) mg/dL AST 35 (12-35) U/L ALT 15 (4-35) U/L Alkaline Phosphatase 60 (40-150) U/L Total Protein 6.7 (6.0-8.3) g/dL Albumin 3.9 (3.3-5.0) g/dL Urine Color Yellow (Yellow) Urine Appearance Slightly Cloudy A (Clear) Urine pH 7.0 (5.0-8.5) Ur Specific [place] 1.015 (1.000-1.030) Urine Protein Negative (Negative) Urine Glucose (UA) Negative (Negative) Urine Ketones Negative (Negative) Urine Blood Negative (Negative) Urine Nitrite Negative (Negative) Urine Bilirubin Negative (Negative) Urine Urobilinogen 0.2 (0.2-1.0) Ur Leukocyte Esterase 1+ A (Negative) Urine RBC 0-2 (0-2) Urine WBC 2-5 (0-5) Ur Squamous Epith Cells Few (None-Few) Urine Bacteria Few A (None) Imaging Data CT scan - head: Attestation: I have reviewed the pertinent imaging results. My impression: By my read no acute findings. Radiologist's impression: No prior studies available for comparison at this institution. Findings: No acute intracranial hemorrhage or extra-axial collection. No evidence of acute cortical infarction. No mass effect or midline shift. Normal cerebral volume. The ventricles are normal in size, shape and contour. There is normal craft and white matter differentiation. The orbital contents are normal. No calvarial fractures. No lytic or sclerotic osseous lesions within the calvarium or skull base. Scalp and other imaged soft tissue structures are normal. Mastoid air cells are clear. Paranasal sinuses are well aerated. Incidental small osteoma in the right frontal sinus. Rightward deviation of the nasal septum. Impression: No acute intracranial abnormality. Head and neck angio: Attestation: I have reviewed the pertinent imaging results. Radiologist's impression: Preliminary read:CTA head: 1. No evidence of proximal artery occlusion, high grade stenosis, aneurysm, dissection, or vascular malformation. 2. Final report per neurointerventional radiology service. Preliminary read:CTA neck: 1. No evidence of proximal artery occlusion, high grade stenosis, aneurysm, dissection, or vascular malformation. 2. Retropharyngeal course of the left ICA. 3. Kinking of the left proximal subclavian artery results in mild-moderate narrowing. 4. Calcified subcarinal and left AP window lymph nodes likely from prior granulomatous disease causing possible narrowing of the left mainstem bronchus, partially imaged. Dedicated chest CT recommended for further evaluation. ECG Data Attestation: I personally reviewed and interpreted this ECG as follows: ECG interpretation date: 11/08/24 Interpretation: EKG by my read shows sinus bradycardia at a rate of 51. I do not note any acute ST or T-wave changes. EKG 2. By my read shows sinus bradycardia at a rate of 49 with 1st degree AV block. No acute ST or T-wave changes. QT interval within normal limits. IA in terval is prolonged at 0236 Discharge Plan Discharge Clinical Impression: Neurological complaint, Bipolar 1 disorder Patient Disposition: Admitted As Observation Condition: Unchanged
--- NOTE | 2024-11-08 13:41 | CRLHL7_ITS ---
For Patients: As a result of the Century Cures Act, medical imaging exams and procedure reports are released immediately into your electronic medical record. You may view this report before your referring provider. If you have questions, please contact your health care provider. INDICATION: Acute stroke, aphasia. TECHNIQUE: CTA neck with contrast bolus tracking, 3D angiographic rendering using maximum intensity projection (MIP) and images permanently archived. FINDINGS: There is no significant carotid artery stenosis or dissection. There is no significant vertebral artery stenosis or dissection. The soft tissues of the neck are within normal limits. Advanced degenerative changes are noted in the cervical spine. IMPRESSION: No significant carotid or vertebral artery stenosis or dissection. Please note that all CT scans at this facility use dose modulation, iterative reconstruction, and/or weight-based dosing when appropriate to reduce radiation dose to as low as reasonably achievable. Dictated by Rishabh Briceno MD @ 11/08/2024 10:39:38 PM (Electronically Signed)
--- NOTE | 2024-11-08 13:41 | CRLHL7_ITS ---
For Patients: As a result of the Century Cures Act, medical imaging exams and procedure reports are released immediately into your electronic medical record. You may view this report before your referring provider. If you have questions, please contact your health care provider. INDICATION: Acute stroke, aphasia. TECHNIQUE: CTA head with contrast bolus tracking, 3D angiographic rendering using maximum intensity projection (MIP) and images permanently archived. FINDINGS: There is normal opacification of the intracranial vasculature. There is no large vessel occlusion. No aneurysm is identified. IMPRESSION: Unremarkable head CTA. Please note that all CT scans at this facility use dose modulation, iterative reconstruction, and/or weight-based dosing when appropriate to reduce radiation dose to as low as reasonably achievable. Dictated by Rishabh Briceno MD @ 11/08/2024 10:37:40 PM (Electronically Signed)
--- NOTE | 2024-11-08 13:41 | CRLHL7_ITS ---
For Patients: As a result of the Century Cures Act, medical imaging exams and procedure reports are released immediately into your electronic medical record. You may view this report before your referring provider. If you have questions, please contact your health care provider. Indication: 1 HR EPISODE OF APHASIA YESTERDAY Technique: CT of the head without contrast. Coronal and sagittal reformats. Bone and soft tissue windows. Comparison: No prior studies available for comparison at this institution. Findings: No acute intracranial hemorrhage or extra-axial collection. No evidence of acute cortical infarction. No mass effect or midline shift. Normal cerebral volume. The ventricles are normal in size, shape and contour. There is normal craft and white matter differentiation. The orbital contents are normal. No calvarial fractures. No lytic or sclerotic osseous lesions within the calvarium or skull base. Scalp and other imaged soft tissue structures are normal. Mastoid air cells are clear. Paranasal sinuses are well aerated. Incidental small osteoma in the right frontal sinus. Rightward deviation of the nasal septum. Impression: No acute intracranial abnormality. Please note that all CT scans at this facility use dose modulation, iterative reconstruction, and/or weight-based dosing when appropriate to reduce radiation dose to as low as reasonably achievable. Dictated by Nestor Gómez MD @ 11/08/2024 4:38:21 PM (Electronically Signed)
[2024-11-08 14:39] LABS: Basophils Absolute Auto 0.03 K/uL (0.00-0.30); Basophils Percent Auto 0.4 % (0.0-3.0); Eosinophils Absolute Auto 0.18 K/uL (0.00-0.50); Eosinophils Percent Auto 2.7 % (0.0-7.0); Hematocrit 36.8 % (33.0-51.0); Hemoglobin* 11.5 gm/dL (12.0-16.0); Immature Granulocytes Abs Auto 0.01 K/uL (0.00-0.30); Immature Granulocytes Pct Auto 0.1 %; Lymphocytes Percent Auto 28.5 % (20-44); Mean Corpuscular HGB Conc 31 gm/dL (32-36); Mean Corpuscular Hemoglobin 31 pg (26-34); Mean Corpuscular Volume 98 fL (80-100); Monocytes Percent Auto 6.4 % (0.0-11.0); Neutrophils Absolute Auto 4.12 K/uL (1.7-7.0); Neutrophils Percent Auto 61.9 % (42.0-72.0); Platelet Count* 269 K/uL (140-440); RDW Coefficient of Variation % 13.3 % (11.5-15.5); Red Blood Count 3.74 m/uL (4.00-5.20); White Blood Count* 6.67 K/uL (4.50-11.00)
[2024-11-08 14:55] LABS: Chloride* 109 mmol/L (96-114)
[2024-11-08 14:56] LABS: Albumin* 3.9 g/dL (3.3-5.0); Potassium* 3.9 mmol/L (3.6-5.1); Sodium* 139 mmol/L (135-149)
[2024-11-08 14:58] LABS: Blood Urea Nitrogen* 10 mg/dL (7-30); Creatinine* 1.1 mg/dL (0.5-1.5); Estimated Glomerular Filt Rate 55 ml/min
[2024-11-08 14:59] LABS: Alanine Aminotransferase* 15 U/L (4-35); Alkaline Phosphatase* 60 U/L (40-150); Anion Gap 5 mEq/L (7-15); Aspartate Amino Transferase* 35 U/L (12-35); Bilirubin Total* 0.7 mg/dL (0.1-1.5); Calcium* 9.7 mg/dL (8.4-10.6); Carbon Dioxide* 25 mmol/L (20-32); Glucose* 79 mg/dL (60-115); Total Protein* 6.7 g/dL (6.0-8.3)
[2024-11-08 15:22] LABS: Appearance Urine Slightly Cloudy (Clear); Bilirubin Urine Negative (Negative); Blood Urine Negative (Negative); Color Urine Yellow (Yellow); Glucose Urine Negative (Negative); Ketones Urine Negative (Negative); Leukocyte Esterase Urine 1+ (Negative); Nitrite Urine Negative (Negative); Protein Urine Negative (Negative); Specific Gravity Urine 1.015 (1.000-1.030); Urobilinogen Urine 0.2 (0.2-1.0)
[2024-11-08 15:26] LABS: RBC Urine 0-2 (0-2)
[2024-11-08 15:27] LABS: Bacteria Urine Few; Squamous Epithelial Cell Urine Few (None-Few)
[2024-11-08 15:31] LABS: Slide Review Reflex No
[2024-11-08] MEDS: ASPIRIN 81 MG TAB.CHEW 324 MG PO (18:29)
[2024-11-08 18:32] VITALS: BP 130/83; PULSE 53; RESP 18; TEMP 37; O2SAT 99
--- NOTE | 2024-11-08 19:02 | PM.IMHP1 ---
Hospitalist- H&P: HPI History of Present Illness Date Seen: 11/08/24 Chief complaint: Poss mini stroke advised to be seen by tim Narrative: Lexi Mcelroy is a 69 year old female who presented to the emergency room at the behest of a triage nurse after discussing abnormal neurologic symptoms she experienced yesterday. She was at her daughter's house and for approximately 20 minutes, it noted a period of time where she was unable to speak, then was able to speak but only jibberish came out. Symptoms self-resolved and there was no associated headache, extremity symptoms, or vision complaint. This morning, she called her PCP's nurse triage line and discussed symptoms, they recommended ER visit. ER Course and Findings: - reassuring exam and labs - negative head CT - CTA neck with results below - stroke neurology consulted: recommend telemetry overnight, MRI in the morning CTA neck: 1. No evidence of proximal artery occlusion, high grade stenosis, aneurysm, dissection, or vascular malformation. 2. Retropharyngeal course of the left ICA. 3. Kinking of the left proximal subclavian artery results in mild-moderate narrowing. 4. Calcified subcarinal and left AP window lymph nodes likely from prior granulomatous disease causing possible narrowing of the left mainstem bronchus, partially imaged. Dedicated chest CT recommended for further evaluation. Histories updated below, Dr. Ahn at [facility] is PCP. Has not yet established with a Psychiatrist locally to assist in refilling her medications for Bipolar disorder (currently stable) Review of Systems Status of ROS: Reports: 10 or more systems reviewed and unremarkable except as noted in History and below Narrative: - chronic sinusitis, stable - chronic GERD, on PPI. No recent GI changes or symtpoms PFSH PFSH Medical History (Updated 11/08/24 @ 20:04 by Lita Wheeler MD) Hypothyroidism ?E03.9 - Hypothyroidism, unspecified (ICD-10) Bipolar 1 disorder ?F31.9 - Bipolar disorder, unspecified (ICD-10) Family History (Updated 11/08/24 @ 19:52 by Lita Wheeler MD) Sister Protein S deficiency Social History (Updated 11/08/24 @ 19:53 by Lita Wheeler MD) Narrative: Lives independently at [address], daughter Brett lives close and would be MDM if needed. Nonsmoker, rare ETOH. DNR/DNI What is your current living situation?: I presently have a place to live Problems where you live: no known problems Problems where you live details: no known problems In the past 12 months, utilities in danger of being shut off: no In past 12 months, lack of transportation kept you from medical appts, meetings, work, or getting things needed for daily living: no In the past 12 mos, have been you worried that your food would run out before you had money to buy more?: never true In the past 12 mos, the food you bought just didn't last and you didn't have money to buy more?: never true Highest level of school completed/degree received: some college, no degree Smoking Status: Never smoker Second hand tobacco smoke exposure: No How often do you have a drink containing alcohol: monthly or less How often do you have six or more drinks on one occasion: Less than monthly AUDIT-C Alcohol total score: 2 Non-prescribed substance use: denies use How often does anyone, including family, friends and others, physically hurt you: never How often does anyone, including family, friends and others, insult or talk down to you: never How often does anyone, including family, friends and others, threaten you with harm: never How often does anyone, including family, friends and others, scream or curse at you: never Meds Home Medications and Allergies Home Medications ?Medication ?Instructions ?Recorded ?Confirmed ?Type ibuprofen 200 mg capsule 600 mg PO Q4H PRN 11/13/23 09/07/24 History famotidine 20 mg tablet 20 mg PO BID 11/08/24 11/08/24 History fexofenadine 180 mg tablet 180 mg PO DAILY 11/08/24 11/08/24 History (Allergy Relief (fexofenadine)) fluticasone propionate 50 1 spray intranasal DAILY 11/08/24 11/08/24 History mcg/actuation nasal spray,suspension Allergies Allergy/AdvReac Type Severity Reaction Status Date / Time No Known Drug Allergies Allergy Verified 11/08/24 15:51 Exam Narrative: Exam Narrative: GEN: Alert and oriented, nontoxic HEENT: PERRL and EOMIs bilaterally, no scleral icterus CV: RRR, No concerning murmurs R: LCTA bilaterally without concerning wheezing Ext: wwp, no concerning edema Skin: No concerning skin lesions or rashes on exposed skin Neuro: Occasional lip-smacking movements, fine resting tremor of BUEs, no dysmetria on finger to nose testing, negative pronator drift Psych: Appropriate Const: Vital Signs, click to edit/add: Vital Signs - 24 hr 11/08/24 12:44 11/08/24 18:32 Temperature 97.9 F 98.6 F Pulse Rate [Pulse Oximeter] 68 53 L Respiratory Rate 18 18 Blood Pressure [Ri ght Upper Arm] 99/68 130/83 Pulse Oximetry 96 99 Oxygen Delivery Me thod Room Air Room Air Hospitalist - H&P: Result Labs Labs: Short CBC 11/08/24 Range/Units 14:12 WBC 6.67 (4.50-11.00) K/uL Hgb 11.5 L (12.0-16.0) gm/dL Hct 36.8 (33.0-51.0) % Plt Count 269 (140-440) K/uL BMP 11/08/24 14:12 Sodium 139 Potassium 3.9 Chloride 109 Carbon Dioxide 25 BUN 10 Creatinine 1.1 Glucose 79 Calcium 9.7 Liver Function 11/08/24 Range/Units 14:12 Total Bilirubin 0.7 (0.1-1.5) mg/dL AST 35 (12-35) U/L ALT 15 (4-35) U/L Alkaline Phosphatase 60 (40-150) U/L Albumin 3.9 (3.3-5.0) g/dL Urine 11/08/24 Range/Units 14:50 Urine Color Yellow (Yellow) Urine Appearance Slightly Cloudy A (Clear) Urine pH 7.0 (5.0-8.5) Ur Specific [place] 1.015 (1.000-1.030) Urine Protein Negative (Negative) Urine Glucose (UA) Negative (Negative) Assessment and Plan Assessment and plan (1) Neurological complaint: Problem comment: - 30 minutes of aphasia, self resolved on 11/08 - MRI 11/09 per Stroke Neurology recommendations Status: Acute (2) Hypothyroidism: Problem comment: - confirm normal TSH, continue home dose of Synthroid Status: Acute (3) Bipolar 1 disorder: Problem comment: - stable, continue home meds Status: Acute (4) Abnormal CT scan, chest: Problem comment: - need formal chest CT with contrast 11/09 given abnormality on neck CTA Status: Acute Plan - per above
[2024-11-08 19:20] VITALS: BP 138/86; PULSE 53; RESP 16; TEMP 36.6; O2SAT 100; BMI 26.6
[2024-11-08] MEDS: FAMOTIDINE 20 MG TABLET PO (22:02)
[2024-11-08] MEDS: LITHIUM CARBONATE 150 MG CAPSULE 300 MG PO (22:09)
[2024-11-08] MEDS: SODIUM CHLORIDE 0.9 % (FLUSH) 10 ML SYRINGE 5 ML IVF (22:12)
[2024-11-08 22:17] VITALS: BP 115/74; PULSE 58; RESP 19; TEMP 36.6; O2SAT 99
[2024-11-08 22:17] LABS: Thyroid Stimulating Hormone* 0.516 uIU/mL (0.270-4.20)
[2024-11-08 23:00] VITALS: PULSE 50
[2024-11-09] MEDS: TRAZODONE HCL 50 MG TABLET 100 MG PO (00:35)
[2024-11-09] MEDS: LITHIUM CARBONATE 150 MG CAPSULE PO (00:47)
[2024-11-09 03:00] VITALS: BP 109/73; PULSE 58; RESP 18; TEMP 36.6; O2SAT 99
[2024-11-09] MEDS: LEVOTHYROXINE 75 MCG TABLET PO (06:29)
--- NOTE | 2024-11-09 08:00 | PC.NURSE ---
Shift note ([id number]):?Patient pleasant, alert and oriented.?Ambulates independently in room.?Denied pain, headache or nausea. Left hand grasp slightly weaker than right. MD?updated.?
[2024-11-09] MEDS: clonazePAM 0.5 MG TABLET 2 MG PO (08:25)
[2024-11-09] MEDS: FEXOFENADINE 180 MG TABLET PO (08:25)
[2024-11-09] MEDS: FAMOTIDINE 20 MG TABLET PO (08:25)
[2024-11-09 08:30] VITALS: BP 110/84; PULSE 57; RESP 18; TEMP 36.3; O2SAT 100
--- NOTE | 2024-11-09 09:00 | CRLHL7_ITS ---
For Patients: As a result of the Century Cures Act, medical imaging exams and procedure reports are released immediately into your electronic medical record. You may view this report before your referring provider. If you have questions, please contact your health care provider. INDICATION: Aphasia. TECHNIQUE: Multisequence multiplanar MRI of the brain without the use of intravenous contrast. COMPARISON: Correlated with CT head dated 11/08/2024. FINDINGS: No evidence of acute ischemia. Scattered foci of T2 prolongation within the white matter of both cerebral hemispheres, nonspecific, but typical of mild chronic small vessel ischemic changes. No abnormal susceptibility artifact. Mild diffuse parenchymal volume loss. No ventricular obstruction. Flow voids of the larger intracranial arteries are preserved. Normal calvarial bone marrow signal intensity. Unremarkable orbits. The paranasal sinuses and mastoid air cells are predominantly clear. IMPRESSION: 1. No acute intracranial abnormality. Specifically, no evidence of acute ischemia. 2. Mild diffuse parenchymal volume loss and presumed chronic small vessel ischemic changes. Dictated by Alfonso Alexandre MD @ 11/09/2024 10:11:40 AM (Electronically Signed)
[2024-11-09] MEDS: LITHIUM CARBONATE 150 MG CAPSULE 600 MG PO (09:19)
[2024-11-09] MEDS: SODIUM CHLORIDE 0.9 % (FLUSH) 10 ML SYRINGE 5 ML IVF (09:20)
--- NOTE | 2024-11-09 10:23 | P.DS_ITS ---
DS: Providers Provider Date Seen: 11/09/24 Date of admission: 11/08/24 18:50 Primary care physician: Yolanda Ahn DO Admitting Clinician: Lita Wheeler MD Attending Physician on discharge: Lita Wheeler MD Date of Discharge: 11/09/24 DS: Diagnosis Discharge Diagnosis (1) Neurological complaint: Status: Acute Problem details: - 30 minutes of aphasia, self resolved on 11/08 - MRI 11/09 without acute abnormalities - no abnormalities on telemetry during stay (2) Hypothyroidism: Status: Acute Problem details: - TSH normal on admission, continued home dose of Synthroid (3) Bipolar 1 disorder: Status: Acute Problem details: - stable, continue home meds (4) Abnormal CT scan, chest: Status: Acute Problem details: - preliminary read from CTA neck concerning for below findings, recommend outpatient CT chest with contrast (notably, final radiology read did not mention below findings) - given no symptoms and recent administration of IV contrast, ? CTA neck: 1. No evidence of proximal artery occlusion, high grade stenosis, aneurysm, dissection, or vascular malformation. 2. Retropharyngeal course of the left ICA. 3. Kinking of the left proximal subclavian artery results in mild-moderate narrowing. 4. Calcified subcarinal and left AP window lymph nodes likely from prior granulomatous disease causing possible narrowing of the left mainstem bronchus, partially imaged. Dedicated chest CT recommended for further evaluation. DS: Summary Hospital Course Hospital Course: Lexi was admitted to the hospital after experiencing a self-resolved 20-30 minute episode of aphasia the day prior to presentation. CT head and CTA neck did not reveal any acute abnormalities. Admitted for MRI, which showed no acute abnormalities on hospital day 1. Telemetry also without abnormalities. Patient had no further neurological symptoms and was appropriate for discharge home on hospital day 1 with close PCP follow-up. Comorbidities remained stable. Follow-up for PCP: Preliminary read of CTA neck discussed the possibility of narrowing of the left mainstem bronchus and recommend dedicated CT chest with contrast for further follow-up; to be done as an outpatient given patient's lack of respiratory symptoms and recent IV contrast administration. Of note, final Radiology read did not make note of the below findings. CTA neck: 1. No evidence of proximal artery occlusion, high grade stenosis, aneurysm, dissection, or vascular malformation. 2. Retropharyngeal course of the left ICA. 3. Kinking of the left proximal subclavian artery results in mild-moderate narrowing. 4. Calcified subcarinal and left AP window lymph nodes likely from prior granulomatous disease causing possible narrowing of the left mainstem bronchus, partially imaged. Dedicated chest CT recommended for further evaluation. Status at Discharge Functional status at discharge: independent ambulation Overall status at discharge: patient is back to baseline Time Spent with Patient Time attestation: Total time spent providing and/or coordinating discharge services: Time spent: Greater than 30 minutes Specific discharge activities: Review of MRI results and discussion with patient, repeat Neurological evaluation, med rec and documentation, f/u discussion/plan Exam Narrative: Exam Narrative: GEN: Alert HEENT: EOMIs bilaterally, no scleral icterus CV: RRR, No concerning murmurs R: LCTA bilaterally without concerning wheezing Ext: wwp, no concerning edema Skin: No concerning skin lesions or rashes on exposed skin Neuro: Fine tremor bilateral upper extremities, unchanged from admission. Negative pronator drift and normal cranial nerves, normal gait Psych: Appropriate Const: Vital Signs, click to edit/add: Vital Signs - 24 hr 11/08/24 12:44 11/08/24 18:32 11/08/24 19:20 Temperature 97.9 F 98.6 F 97.9 F Pulse Rate Pulse Rate [Pulse Oximeter] 68 53 L 53 L Respiratory Rate 18 18 16 Blood Pressure [Le ft Arm] 138/86 Blood Pressure [Ri ght Upper Arm] 99/68 130/83 Pulse Oximetry 96 99 100 Oxygen Delivery Me thod Room Air Room Air Room Air 11/08/24 19:20 11/08/24 22:17 11/08/24 23:00 Temperature 97.8 F Pulse Rate 50 L Pulse Rate [Pulse Oximeter] 58 L Respiratory Rate 19 Blood Pressure [Le ft Arm] 115/74 Blood Pressure [Ri ght Upper Arm] Pulse Oximetry 99 Oxygen Delivery Me thod Room Air Room Air 11/09/24 03:00 11/09/24 08:30 Temperature 97.9 F 97.4 F L Pulse Rate Pulse Rate [Pulse Oximeter] 58 L 57 L Respiratory Rate 18 18 Blood Pressure [Le ft Arm] 109/73 110/84 Blood Pressure [Ri ght Upper Arm] Pulse Oximetry 99 100 Oxygen Delivery Me thod Room Air Room Air DS: Data Data Completed and Pending Labs on day of discharge: Labs from last 24 hours 11/08/24 11/08/24 11/08/24 20:05 14:50 14:12 WBC 6.67 RBC 3.74 L Hgb 11.5 L Hct 36.8 MCV 98 MCH 31 MCHC 31 L RDW Coeff of Priyanka 13.3 Plt Count 269 Neut % (Auto) 61.9 Lymph % (Auto) 28.5 [place] % (Auto) 6.4 Eos % (Auto) 2.7 Baso % (Auto) 0.4 Neut # (Auto) 4.12 Lymph # (Auto) 1.90 [place] # (Auto) 0.40 Eos # (Auto) 0.18 Baso # (Auto) 0.03 Abs Immat Gran (auto) 0.01 Imm/Tot Granulo (auto) 0.1 Sodium 139 Potassium 3.9 Chloride 109 Carbon Dioxide 25 Anion Gap 5 L BUN 10 Creatinine 1.1 Estimated GFR 55 Glucose 79 Calcium 9.7 Total Bilirubin 0.7 AST 35 ALT 15 Alkaline Phosphatase 60 Total Protein 6.7 Albumin 3.9 TSH 0.516 Urine Color Yellow Urine Appearance Slightly Cloudy A Urine pH 7.0 Ur Specific [place] 1.015 Urine Protein Negative Urine Glucose (UA) Negative Urine Ketones Negative Urine Blood Negative Urine Nitrite Negative Urine Bilirubin Negative Urine Urobilinogen 0.2 Ur Leukocyte Esterase 1+ A Urine RBC 0-2 Urine WBC 2-5 Ur Squamous Epith Cells Few Urine Bacteria Few A Lab Acknowledgement Test Added Preliminary micro results at discharge 11/08/24 14:50 Urine Culture - Preliminary Urine,Clean Catch < 50,000 COL/ML MIXED GRAM POSITIVE FREEMAN ISOLATED NO FURTHER WORKUP Discharge Plan Discharge Disposition: Home, Self-Care Date of Admission: 11/08/24 18:50 Attending Provider on Discharge: Lita Wheeler Primary Care Provider: Yolanda Ahn Condition: Improved Anticipated Discharge Date/Time: 11/09/24 10:18 Discharge Medications: Continued levothyroxine 75 mcg tablet 75 mcg PO DAILY Qty: 90 3RF ibuprofen 600 mg tablet 600 mg PO TID PRN (Reason: pain) Qty: 30 0RF fexofenadine [Allergy Relief (fexofenadine)] 180 mg tablet 180 mg PO DAILY famotidine 20 mg tablet 20 mg PO BID fluticasone propionate 50 mcg/actuation spray,suspension 1 spray INTRANASAL DAILY lithium carbonate 150 mg capsule 150 mg PO HS Rx Instructions: Take once per day in the evening with one 300mg lithium capsule for a total of 450 mg lithium carbonate 300 mg capsule 300 - 600 mg PO BID Rx Instructions: Take 2 capsules in the morning and 1 capsule in the evening with one 150 mg lithium capsule trazodone 100 mg tablet 100 mg PO HS PRN (Reason: insomnia) Qty: 90 3RF clonazepam 1 mg tablet 1 mg PO BID Qty: 60 2RF Discharge Orders: Discharge Order (Routine); Ordered 11/09/24 Ordered By: Lita Wheeler Additional Instructions: MRI looks great! No evidence of stroke. See Dr. Ahn in followup - you can discuss starting a baby aspirin daily, and she can order your CHEST CT WITH CONTRAST to followup the possible abnormality s een in ER. Activity Level: Activity as Tolerated Discharge Diet: Regular Follow Up Appointments: Yolanda Ahn DO [Primary Care Provider] - 11/15/24 11:15 am ([facility] [[email or web address] for follow up with PCP) Forms: Dr. Jerry's Smooth Move Info Instructions
--- NOTE | 2024-11-09 14:20 | REH.OT ---
OT: requested screen for new neuro deficits due to recent episode with aphasia for 20 minutes 2 days ago which resolved. Patient out for MRI initially. MRI results noted with no acute changes. Returned and patient was up independently in room with AD, no new visual changes or strength deficits noted. Patient is tangential in conversation and focused on mental health medications, staff aware of this. Patient's UE tremors are not new with this episode, she requested additional information and provided resource to follow up with PCP and obtain OP OT orders for coordination and tremor management if PCP in agreement. No skilled inpatient OT needs identified at this time.
--- NOTE | 2024-11-09 15:10 | PC.NURSE ---
Discharge: Patient pleasant and cooperative, A&O. VSS, afebrile. SpO2 maintained above 90% on RA. Patient denies pain this shift. Tolerating regular diet. IV removed with tip intact. Discharge instructions provided, all questions answered. Discharged to home.
== END 2024-11-09 15:00 | disposition home or self-care (01) ==
LOC: ED 18:35 → MEDSURG 18:51
PROVIDERS: Admitting Provider Family Medicine; Emergency Provider Family Medicine; PCP Family Medicine; Visit Provider Family Medicine
DX: R47.01 Aphasia (principal); R93.89 Abnormal findings on diagnostic imaging of other specified body structures; F31.9 Bipolar disorder, unspecified; J01.90 Acute sinusitis, unspecified; E03.9 Hypothyroidism, unspecified; K21.9 Gastro-esophageal reflux disease without esophagitis; Z66 Do not resuscitate; R82.998 Other abnormal findings in urine
CPT/HCPCS: 36415; 70450; 70496; 70498; 70551; 80053; 81001; 84443; 85025; 87086; 93005; 99215; 99284; 99285; G0378; A9270; Q9967

== ENCOUNTER 2025-10-15 09:23 | Emergency (ER) | payer OTHER, SELFPAY ==
--- OUTSIDE RECORDS SUMMARY | 2025-10-15 09:26 | XMS_ITS | Encounter Summary ---
Author Organization [facility] Address [address] [place] [address] Care Team Providers Care Ergonomist Name Role Phone Elsewhere, Pcp Primary Care Provider Unavailabl e Encounter Details Date Type Department Care Team (Late st Contact Info) Description 04/27/2015 Historical Ophthalmology [facility] Eduardo Todd O.D. [address] [place] [phone] Social History Tobacco Use Types Packs/Day Years Used Date Smoking Tobacco: Never Assessed Comments Unknown Sex and Gender Information Value Date Recorded Sex Assigned at Female 12/18/2023 8:55 AM PRODUCTION SUPPORT SPECIALIST Legal Sex Female 3:27 AM PRODUCTION SUPPORT SPECIALIST Gender Identity Female 05/21/2018 4:12 PM [...] LE scl CDM Reports - EYECL Id: [id number] Status: Fnl documented in this encounter Plan of Treatment Not on file documented as of this encounter Visit Diagnoses Not on filedocumented in this encounter Additional Health Concerns Infection Onset Date Last Indicated Resolved Time COVID19 Pending 11/18/2020 11/18/2020 11/18/2020 1 1:59 AM PRODUCTION SUPPORT SPECIALIST COVID19 Pending 11/18/2020 11/18/2020 11/18/2020 6 :45 PM PRODUCTION SUPPORT SPECIALIST COVID19 Pending 10/15/2021 10/15/2021 10/15/2021 8 :23 PM PRODUCTION SUPPORT SPECIALIST COVID19 Pending 01/29/2022 01/29/2022 01/29/2022 1 :59 PM CDT COVID19 Pending 03/28/2022 03/28/2022 03/28/2022 1 0:49 AM CDT COVID19 Pending 03/28/2022 03/28/2022 03/28/2022 1 :14 PM CDT Assessment Noted Time PHQ-9 Depression Total Score: 0 03/13/20 15 3:14 PM CDT documented as of this encounter Care Teams Ergonomist Relationship Specialty Start Date End Date Elsewhere, Pcp PCP - General Internal Medicine 06/23/25 documented as of this encounter
--- OUTSIDE RECORDS SUMMARY | 2025-10-15 09:26 | XMS_ITS | Encounter Summary ---
Author Organization [facility] Address [address] [place] [address] Care Team Providers Care File Drawer Finisher Name Role Phone Elsewhere, Pcp Primary Care Provider Unavailabl e Encounter Details Date Type Department Care Team (Late st Contact Info) Description 01/14/2017 Historical Ophthalmology [facility] Eduardo Todd O.D. [address] [place] [phone] Social History Tobacco Use Types Packs/Day Years Used Date Smoking Tobacco: Never Comments Unknown Sex and Gender Information Value Date Recorded Sex Assigned at Female 12/18/2023 8:55 AM SALES LEAD GENERATOR Legal Sex Female 3:27 AM SALES LEAD GENERATOR Gender Identity Female 05/21/2018 4:12 PM CDT Sexual Orientation Straight 05/21/2018 4: 12 PM CDT documented as of this encounter Progress Notes * Eduardo Todd O.D. - 01/14/2017 1:33 PM CST Contact Lens Exam HISTORY OF PRESENT ILLNESS likes fit not vision of current contacts . last wore cl's 2 days ago CDM Reports - EYECL Id: [id number] Status: Fnl documented in this encounter Plan of Treatment Not on file documented as of this encounter Visit Diagnoses Not on filedocumented in this encounter Additional Health Concerns Infection Onset Date Last Indicated Resolved Time COVID19 Pending 11/18/2020 11/18/2020 11/18/2020 1 1:59 AM SALES LEAD GENERATOR COVID19 Pending 11/18/2020 11/18/2020 11/18/2020 6 :45 PM SALES LEAD GENERATOR COVID19 Pending 10/15/2021 10/15/2021 10/15/2021 8 :23 PM SALES LEAD GENERATOR COVID19 Pending 01/29/2022 01/29/2022 01/29/2022 1 :59 PM CDT COVID19 Pending 03/28/2022 03/28/2022 03/28/2022 1 0:49 AM CDT COVID19 Pending 03/28/2022 03/28/2022 03/28/2022 1 :14 PM CDT Assessment Noted Time PHQ-9 Depression Total Score: 0 03/13/20 15 3:14 PM CDT documented as of this encounter Care Teams File Drawer Finisher Relationship Specialty Start Date End Date Elsewhere, Pcp PCP - General Internal Medicine 06/23/25 documented as of this encounter
--- OUTSIDE RECORDS SUMMARY | 2025-10-15 09:26 | XMS_ITS | Encounter Summary ---
Author Organization [facility] Address [address] [place] [id number] Care Team Providers Care Metal Machine Operator Name Role Phone Elsewhere, Pcp Primary Care Provider Unavailabl e Reason for Referral * Outpatient (Routine) - Authorized Specialty Diagnoses / Procedures Referred By Contprashanth t Referred To Contact Otorhinolaryngology Diagnoses Rhinitis Chronic Renetta Mann M.D. [address] [place] [phone] Phone: tel: fax: [facility] Referral ID Status Reason Start Date Expiration Date Visits Requested Visits Authorized [id number] Authorized Specialty Services Required 5 03/29/2027 1 1 STANT COMMUNITY MANAGER Encounter Details Date Type Department Care Team (Late st Contact Info) Description 09/22/2025 Clinical Communication Division of Allergic Diseases in [place], [place] [address] [place] [phone] Renetta Mann M.D. [address] [place] [phone] Social History Tobacco Use Types Packs/Day Years Used Date Smoking Tobacco: Never Smokeless Tobacco: Never Alcohol Use Standard Drinks/Week Comments Yes 2 (1 standard drink = 0.6 oz pur e alcohol) Not every week [facility] Utilities Answer Date Recorded In the past 12 months has [employer] gas, oil, or water [employer] threatened to shut off services in your home? No 01/16/2025 Hunger Vital Sign Answer Date Recorded Within the past 12 months, y ou worried that your food would run out before you got the money to buy more. Sometimes true Within the past 12 months, t he food you bought just didn't last and you didn't have money to get more. Sometimes true 12/2024 PRAPARE - Transportation Answer Date Re corded In the past 12 months, has l ack of transportation kept you from medical appointments or from getting medications? No 12/2024 In the past 12 months, has l ack of transportation kept you from meetings, work, or from getting things needed for daily living? No 01/16/2025 Depression Answer Date Recor ded PHQ-9 Total Score (max 27) 11 12/29 Housing Stability Answer Date Recorded What is your living situation today? I have a [facility] place to live 01/16/2025 Comments No Sex and Gender Information Value Date Recorded Sex Assigned at Female 12/18/2023 8:55 AM ASSISTANT COMMUNITY MANAGER Legal Sex Female 3:27 AM ASSISTANT COMMUNITY MANAGER Gender Identity Female 05/21/2018 4:12 PM CDT Sexual Orientation Straight 05/21/2018 4: 12 PM CDT documented as of this encounter Miscellaneous Notes * Telephone Encounter - Inessa Brown REsterN. - 09/23/2025 8:55 AM ASSISTANT COMMUNITY MANAGER CHIEF COMPLAINT/REASON FOR VISIT Lexi Mcelroy calling to report symptoms of rhinitis/sinusitis. HISTORY OF PRESENT ILLNESS Rhinitis/sinusitis symptoms include clear rhinorrhea, nasal congestion, postnasal drip, cough, and headaches. The patient reports symptoms are not new and are a continuation of symptoms she has had since high school The patient has been seen for this in the Division of Allergic Diseases. The patient is not experiencing facial pain, pressure, or fullness. Nasal obstruction or blockage is present. Nasal drainage is present. Nasal drainage is clear, milky, yellow color and postnasal. the patient reports sense of smell is not diminished or absent. Symptoms are not worse when bending over and areworse when lying flat. Patient has not been ill recently. Fever is not present. Patient isnot using nasal rinses. Patient is using nasal sprays. Nasal spray technique was not reviewed. Patient reports taking the following medications for rhinitis/sinusitis: none. Over the counter medications include: none. Patient has seen by their local primary care provider for rhinitis/sinusitis symptoms. ASSESSMENT/PLAN Plan: Patient has been seen in the Division of Allergic Diseases in the last 6- 12 months, will seekprovider recommendations The following home care recommendations have been provided to the patient increse fluid intake, trya steamy shower, vaporizer with mist, or cool air exposure, and use good hygiene to avoid spreadinggerms to others. STANT COMMUNITY MANAGER documented in this encounter Plan of Treatment Scheduled Referrals Name Type Priority Associated Diagnoses Order Schedule Otorhinolaryngology - General non-surgical consult (clinic) Outpatient Referral Routine Rhinitis Chronic Expected: 09/27/2025, Expires: 12/28/2026 documented as of this encounter Visit Diagnoses Diagnosis Rhinitis Chronic- Primary documented in this encounter Additional Health Concerns Assessment Noted Time PHQ-9 Depression Total Score: 024 12:44 PM ASSISTANT COMMUNITY MANAGER documented as of this encounter Care Teams Metal Machine Operator Relationship Specialty Start Date End Date Elsewhere, Pcp PCP - General Internal Medicine 06/23/25 documented as of this encounter
--- OUTSIDE RECORDS SUMMARY | 2025-10-15 09:26 | XMS_ITS | Clinical Summary ---
Author Organization [employer] Address [address] [place] [address] Care Team Providers Care Swimming Instructor Name Role Phone Oxana Pedroza RN Unavailable [phone] Emily Angel RN Unavailable [phone] Yolanda Ahn DO Primary Care Provider [phone] Mary Almanzar MD Unavailable [phone] Allergies Active Allergy Reactions Criticality Noted Date Comments Aripiprazole Nausea And Vomiting 03/27/2009 Quetiapine Other - Describe In Comment Field 05/28/2017 Loss of balance Ziprasidone Hcl Itching 05/28/2017 Medications multivitamin (MVI) tablet Take 1 Tablet by mouth once daily. Active levothyroxine 75 mcg tabletIndication s:Hypothyroidism (acquired) Take 1 Tablet (75 mcg) by mouth once daily. 90 Tablet 3 5 Active rosuvastatin 5 mg tabletIndication s:Elevated LDL cholesterol level Take 1 Tablet (5 mg) by mouth at bedtime. 90 Tablet 3 5 Active azelastine 137 mcg/actuation (ASTELIN) nasal sprayIndications :Chronic rhinitis Inhale 1 Laurel into affected nostril(s) two times daily. 30 mL 1 5 Active famotidine (PEPCID) 20 mg tabletIndication s:Upset stomach Take 1 Tablet (20 mg) by mouth 2 times daily if needed for GI Upset or Heartburn. 60 Tablet 5 Active clonazePAM (KLONOPIN) 2 mg tabletIndication s:Bipolar 1 disorder (HC) Take 1 Tablet (2 mg) by mouth once daily. 30 Tablet 5 5 Active traZODone (DESYREL) 100 mg tabletIndication s:Bipolar 1 disorder (HC) Take 1 Tablet (100 mg) by mouth at bedtime. 30 Tablet 5 5 Active losartan (COZAAR) 25 mg tabletIndication s:Stage 3 chronic kidney disease, unspecified whether stage 3a or 3b CKD (HC) Take 1 Tablet (25 mg) by mouth once daily. 30 Tablet 1 5 Active aspirin enteric coated 81 mg tabletIndication s:TIA (transient ischemic attack) Take 1 Tablet (81 mg) by mouth once daily with a meal. 100 Tablet 3 5 Active OLANzapine (ZyPREXA) 5 mg tabletIndication s:Bipolar disorder, current episode mixed, severe, with psychotic features (HC) Take 1 Tablet (5 mg) by mouth two times daily. 60 Tablet 5 5 Active divalproex (Depakote ER) 250 mg Extended-Release tabletIndication s:Bipolar 1 disorder (HC) Take 1 Tablet (250 mg) by mouth two times daily. 60 Tablet 5 5 10/12/20 25 Discontinu ed(*Patien t states no longer taking) Active Problems Problem Noted Date Diagnosed Date Elevated LDL cholesterol level 09/14/2025 Stage 3 chronic kidney disease 07/25/2025 Osteopenia 07/25/2025 Controlled substance agreement signed 10/29/2022 Overview (10/29/2022): Signed 10-29-2022. Cedrick Vinson [facility] Psychiatry History of partial adherence to treatment 2021 Gastroesophageal reflux disease without esophagi tis 10/23/2018 Hypothyroidism 10/23/2018 Bipolar 1 disorder 10/22/2018 Insomnia due to other mental disorder 10/22/2018 Amnesia 05/09/2017 Presbyopia 01/14/2017 Osteoarthritis of hand 03/04/2016 Myopia 12/14/2015 Low grade squamous intraepit helial lesion (LGSIL) on cervicovaginal cytologic smear 04/27/2015 Overview (03/23/2025): 2014: Pap: normal, HPV+ (negative for 16/18) 2015: Pap: LSIL, HPV+ (negative for 16/18); colp EYAL 1, ECC negative 2016: Pap: normal, HPV+ (negative for 16/18); colp EYAL 1, ECC EYAL 1 2017: Pap: normal, HPV- 2018: Pap: ASCUS, HPV- 2020: Pap: NIL, HPV- 2023: Pap: NIL, HPV- Resolved Problems Problem Noted Date Diagnosed Date Resolved Date Acne rosacea, papular type 08/24/2019 0 07/17/2022 History of alcohol abuse 10/23/2018 History of substance abuse 10/23/2018 0 07/17/2022 Alcohol use disorder, modera te to severe, dependence 10/23/2018 10/22/2024 Substance abuse in remission 10/23/2018 10/29/2022 Drug-related disorder 05/09/20172021 Obesity with body mass index 30 or greater 04/01/2016 07/17/2022 Carpal tunnel syndrome 03/26/201607/17 Anxiety 02/07/2012 10/29/2022 Encounters Date Type Department Care Team Description 10/12/2025 10:30 AM CON[employer]CTION [facility] Telemedicine [facility] [address] [place] [address] Mary Almanzar MD Medication Management ([place]); Follow Up 10/10/[address] [facility] [address] [place] [address] Mary Almanzar MD Need Meds 10/07/2025 10:30 AM [employer]CTION [facility] Ancillary Procedure [facility] [address] [facility] [place] [address] 10/07/2025 10:00 AM [employer]CTION [facility] Orders Only [facility] [address] [place] [address] [place], [place] <No scans attached> 10/07/2025 9:30 AM [employer]CTION [facility] Office Visit [facility] [address] [facility] [place] [address] Darby Alicia MD Leg Swelling (bi lateral ankle/leg swelling ) 10/07/2025 Travel 10/06/[address] [facility] [address] [place] [address] Yolanda Ahn, DO Other (returned phone call ) 10/05/[address] [facility] [address] [place] [address] Yolanda Ahn, DO Leg swelling, lump 10/04/[address] [facility] [address] [place] [address] Yolanda Ahn, DO Leg Swelling 10/04/[address] [address] Yolanda Ahn, Questions 09/14/2025 1:10 PM CDT Office Visit [address] [address] Yolanda Ahn, Follow Up (Kidney disease); Immunization/Injec tion 09/14/2025 Travel 09/13/2025 1:00 PM CDT Telemedicine [facility] [address] [place] [address] Mary Almanzar MD Telehealth; Mental Health Intake 09/13/2025 Travel 09/12/2025 Travel 08/28/2025 Travel 08/12/[address] [facility] [address] [place] [address] Mary Almanzar MD Appointment Reminder (Previsit intake ) 08/11/[address] [facility] [address] [place] [address] Yolanda Ahn DO Medication Management (lithium carbonate (LITHOBID) 300 mg ) 08/11/[address] [facility] [address] [place] [address] Yolanda Ahn DO Referral (/) 07/28/[address] [place] [address] Yolanda Ahn, DO Refill Request (FAMOTIDINE) 07/25/2025 1:10 PM CDT Phone Office Visit [facility] [address] [facility] [place] [address] Yolanda Ahn, DO Follow Up (Patient would like to discuss her new diagnosis and how can it be treated.) 07/25/2025 Travel 07/15/[address] [facility] [address] [place] [address] Yolanda Ahn, DO Questions (KIDNEY DISEASE) from Last 3 Months Immunizations Immunization Administration Dates Next Due COVID-19 VACCINE SPIKEVAX (M ODERNA 50MCG/0.5ML) 12YO+ PFS 09/14/2025,10/22/2024 COVID-19 vaccine (Q1 Labs NTech 30mcg/0.3mL) 12YO+ BIVALENT PF, MDV 10/29/2022 COVID-19 vaccine ([employer] NTech 30mcg/0.3mL) 12YO+ ALEXANDR-SUCROSE PF, MDV 07/17/2022 DTaP 06/20/2008 Influenza Virus, Unspecified 10/29/2022,09/19/20 14,08/17/2012 Influenza, Inactivated AIIV4 (Age 65+ Years) Preserv Free 10/29/2022 Influenza, Inactivated IIV3 (Age 65+ Years) Preserv Free 10/22/2024 Oral Polio Vaccine 08/27/1973 Pneumococcal Conj 20-valent (Prevnar 20) 025 Td (Age >=7 Years) 08/20/1995,03/05/1972 Td, Preservative Free (age >= 7 Years) 8 Tdap 03/12/2025,06/20/2008 Family History Medical History Relation Name Comments Anxiety disorder Daughter Rosario Depression Daughter Rosario Suicide Attempts Daughter Rosario Cancer-colon Father Cancer-breast Maternal Grandmother Bipolar disorder Mother Cancer-breast Mother Cancer-colon Paternal Uncle Cancer-breast Sister Depression Sister Relation Name Status Comments Daughter Rosario Other Father Maternal Grandmother Mother Paternal Uncle Sister Social History Tobacco Use Types Packs/Day Years Used Date Smoking Tobacco: Never Smokeless Tobacco: Never Tobacco Cessation:Counseling Given: Not Answered Alcohol Use Standard Drinks/Week Comments Yes 0 (1 standard drink = 0.6 oz pur e alcohol) 1-2 drinks, 2-3 times a month PHQ-2 Answer Date Recorded PHQ-2 TOTAL SCORE 2 10/12/2025 Social Connections Answer Date Recorded Do you often feel lonely or isolated from those around you? 0 08/28/2025 Alcohol Use Answer Date Recorded How often do you have a drink containing alcohol ? 1 07/25/2025 How many drinks containing a lcohol do you have on a typical day when you are drinking? 0 07/25/2025 How often do you have five or more drinks on one occasion? 0 07/25/2025 Financial Resource Strain Answer Date R ecorded Difficulty of Paying Living Expenses 3 08/28/2025 Difficulty of Paying Living Expenses Not on file 08/28/2025 Food Insecurity Answer Date Recorded Do you worry your food will run out before you are able to buy more? 1 08/28/2025 Transportation Needs Answer Date Record ed Does lack of transportation keep you from medica l appointments? 1 08/28/2025 Does lack of transportation keep you from work, meetings or getting things that you need? 1 08/28/2025 Housing Stability Answer Date Recorded What is your housing situation today? 1 08/28/2025 Utilities Answer Date Recorded Do you have trouble paying f or utilities (for example, heat, electricity, water, phone)? 1 08/28/2025 Education Answer Date Recorded What is the highest level of school you have completed or the highest degree you have received? Some college, no degree 10/29/2022 Comments No Sex and Gender Information Value Date Recorded Sex Assigned at Not on file Legal Sex Female 11:44 AM CDT Gender Identity Not on file Sexual Orientation Not on file Occupation Industry Job Start Date Job End Date retired Not on file Not on file Not on file Obstetrics History Para Term AB IAB SAB Ectopic Multiple Livin g Live Births 1 Date Outcome GA Total Labor Labor/2nd/3rd Weight Sex Type Anes PTL Daphne A1 A5 Name Clin 982 Term Livin g Rosario Delivery Location:Hospital ( [facility]) Last Filed Vital Signs Vital Sign Reading Time Taken Comments Blood Pressure 96/68 10/07/2025 9:30 AM [employer]CTION [employer]AN Pulse 69 10/07/2025 9:30 AM [employer]CTION [employer] Temperature 37.3 C (99.1 F) 07/17/2022 1:22 PM CDT Respiratory Rate - - Oxygen Saturation 100% 10/07/2025 9:30 AM [employer]CTION [employer]AN Inhaled Oxygen Concentration - - Weight 73.2 kg (161 lb 4.8 oz) 10/07/2025 9:30 A M [employer] Height 167.6 cm (5' 6) 03/23/2025 10:26 AM CDT Body Mass Index 26.03 03/23/2025 10:26 AM CDT Plan of Treatment Health Maintenance Due Date Last Done Comments Zoster (shingles) series for age 50+ (1 of 2) 2006 Mammogram for age 45-75 07/15/2025 07/15/2024, 06/25 Influenza Vaccine (#1) 2025 , 10/29/2022, 10/29/2022, Additional history exists Colonoscopy through age 75 11/17/2025 P ostponed from 2001 (Patient discretion) COVID-19 vaccine series ( season) 2026 09/14/2025, 10/22/2024, 12/24/2023, Additional history exists BMI (ht and wt on same day) for age 18+ 03/23/2026 03/23/2025, 04/24/2022 Medicare Wellness for age 65+ 03/24/2026 03/23/2025, 12/24/2023 (Verified in Care Everywhere or Patient Record) Depression screening for age 12+ 10/12/2026 10/12/2025, 09/14/2025, 03/23/2025, Additional history exists Lipids for age 45-75 03/17/2030 03/17/2025 RSV vaccine for adults or (1 - 1-dose 75+ series) 2031 Tetanus booster 03/12/2035 03/12/2025, 07/0 03/2018, 06/20/2008, Additional history exists Hepatitis C screening for age 18-79 Completed 10/22/2024 Pneumococcal series for age 50+ Completed 03/23/2025 DEXA/DXA scan for age 65+ Completed 07/13/2025 Hepatitis B series for 19+ Aged Out N o longer eligible based on patient's age to complete this topic Procedures Procedure Name Priority Date/Time Associated Diagnosis Comments US LOWER EXTREMITY SOFT TISSUE RIGHT Routine 10/07/2025 10:36 AM [employer]CTION [facility] Nodule of soft tissue POTASSIUM Routine 10/07/2025 10:36 AM [employer]CTION [employer] Stage 3 chronic kidney disease, unspecified whether stage 3a or 3b CKD (HC) CREATININE Routine 10/07/2025 10:36 AM [employer]CTION [employer]AN Stage 3 chronic kidney disease, unspecified whether stage 3a or 3b CKD (HC) URINE ALBUMIN TO CREATININE RATIO, RANDOM Routine 09/14/2025 1:30 PM CDT Stage 3 chronic kidney disease, unspecified whether stage 3a or 3b CKD (HC) XR DXA BONE DENSITY 2 SITES AXIAL Routine 07/13/2025 9:37 AM CDT Menopause LIPID PANEL W REFLEX MEASURED LDL Routine 03/17/2025 10:40 AM CDT Screening for hypercholesterolemia Encounter for lipid screening for cardiovascular disease ANTI HCV Routine 10/22/2024 3:28 PM [employer]CTION [facility]AN Unprotected sexual intercourse XR MAMMO SUKHJINDER UNI ADDL VIEWS LEFT JULES 07/15/2024 2:44 PM CDT Abnormal mammogram from Last 3 Months or Most Recently Relevant to Health Maintenance Results * US LOWER EXTREMITY SOFT TISSUE RIGHT (10/07/2025 10:36 AM [employer]STRUCTION [facility]EMAN) Anatomical Region Laterality Modality LEG R Ultrasound 10/07/2025 11:5 1 AM [employer] [facility]AN Narrative 10/07/2025 11:51 AM [employer]CTION [facility]AN For Patients: As a result of the Cures Act, medical imaging exams and procedure reports are released immediately into your electronic medical record. You may view this report before your referring provider. If you have questions, please contact your health care provider. Indication: Nodule of soft tissue Technique: Grayscale and color Doppler ultrasound of the right lateral distal calf soft tissues performed in the area of concern. Comparison: None Findings: No soft tissue mass or fluid collection. No abnormal vascularity. Impression: Negative targeted sonogram. Dictated by Nestor Beck MD @ 10/07/2025 11:51:26 AM (Electronically Signed) Procedure Note Nestor Beck MD - 10/07/2025 For Patients: As a result of the Cures Act, medical imagingexams and procedure reports are released immediately into your electronicmedical record. You may view this report before your referring provider.If you have questions, please contact your health care provider. Indication: Nodule of soft tissue Technique: Grayscale and color Doppler ultrasound of the right lateral distal calfsoft tissues performed in the area of concern. Comparison: None Findings: No soft tissue mass or fluid collection. No abnormal vascularity. Impression: Negative targeted sonogram. Dictated by Nestor Beck MD @ 10/07/2025 11:51:26 AM (Electronically Signed) us Darby Alicia MD US Final R esult * POTASSIUM (10/07/2025 10:36 AM CONSTRUCTION LINEMAN) Pathologist [facility] POTASSIUM 4.1 3.5 - 5.3 mmol/L 10/08/2025 3:46 AM CON[employer]CTION [employer]AN [facility] Blood BLOOD SPECIMEN / Unknown [facility] / Unknown 10/07/2025 10:36 AM CONSTRUCTION [employer]EMAN 10/07/2025 10:36 AM [employer]STRUCTION [employer]AN us Yolanda Ahn DO CHEMISTRY Final Resu lt [facility] [address] [place] [address], * (ABNORMAL) CREATININE (10/07/2025 10:36 AM CONSTRUCTION [employer]EMAN) CREATININE 1.21(H) 0.50 - 1.05 mg/dL 10/08/2025 3:46 AM CONSTRUCTION [employer] [facility] EGFR 49(L) > OR = 60 mL/min/1.7 3m2 10/08/2025 3:46 AM CONSTRUCTION LINEMAN [facility] Blood BLOOD SPECIMEN / Unknown [facility] / Unknown 10/07/2025 10:36 AM CONSTRUCTION LINEMAN 10/07/2025 10:36 AM CONSTRUCTION [employer]EMAN Yolanda Vianey Ahn DO CHEMISTRY Final Resu lt Performing Organization Address City/[facility]/ZIP Co de Phone Number [facility] [id number] [place] [address], [place] [phone] * URINE ALBUMIN TO CREATININE RATIO, RANDOM (09/14/2025 1:30 PM CDT) ALB RAND URINE <12.0 mg/L 09/14/2025 11:23 PM CDT [facility] CREATININE,URINE 0.85 g/L 09/14/20 11:23 PM CDT [facility] ALBUMIN TO CREATININE RATIO,RAND UR 09/14/2025 11:23 PM CDT [facility] Comment:Urine Albumin below measurement range, unable to calculate. Urine URINE SPECIMEN / Unknown Non-Blood / Unknown 09/14/2025 1:30 PM CDT 09/14/2025 1:47 PM CDT Narrative [facility] - 09/14/2025 11:23 PM CDT If Albumin to Creatinine Ratio is elevated, consider the following: Elevations seen with incipient nephropathy associated with diabetes mellitus or hypertension. Stress, exercise,hematuria, and urinary tract infection may also produce elevated results. If clinically indicated, confirm with 24 Hour Albumin to Creatinine Ratio. Yolanda Ahn DO URINE Final Resu lt Performing Organization Address City/[facility]/ZIP Co de Phone Number [facility] [address] [place] [address], [place] * (ABNORMAL) XR DXA BONE DENSITY 2 SITES AXIAL [96225.1] (07/13/2025 9:37 AM CDT) Anatomical Region Laterality Modality Spine, HIPS, HIPL, HIPR Other Impressions 07/24/2025 2:59 PM CDT Osteopenia. RECOMMENDATIONS: The National Osteoporosis Foundation recommends pharmacologic treatment for patients with T-scores of -2.5 or less, patients with prior history of fragility fractures, or patients with 10-year probability of greater than 3% at hips or greater than 20% of suffering major osteoporotic fractures. Recommend continued optimization of calcium and vitamin D intake through dietary means and/or supplementation and regular exercise. Consider pharmacologic therapy for osteopenia with increased fracture risk. Follow-up bone density reading in 2 years if therapy initiated to assess therapeutic efficacy. Catrina Anderson PA-C [facility] 07/24/2025 Narrative 07/24/2025 2:59 PM CDT For Patients: Results are automatically released to your [facility] ([employer]) account once available, in compliance with federal regulations. This means that you may see your results before your provider has had a chance to review them. Please allow 2-3 business days for your provider to comment on the results. XR DXA Bone Mineral Density (BMD) EXAM LOCATION: [facility] [address] [facility] [address] [address] PATIENT NAME: Lexi Mcelroy DATE OF : 1955 EXAM DATE: 07/13/2025 REQUESTING PROVIDER: Yolanda Ahn DO GENDER AT : female HEIGHT: 5' 6 (03/23/2025) WEIGHT: 160 lb (05/25/2025) MENOPAUSAL STATUS: Postmenopausal RACE/ETHNICITY: White RISK FACTORS: White Race CURRENT MEDICATION FOR BONE LOSS: NONE INDICATION: Menopause COMPARISON DATE(S): None DXA scans are compared to prior studies for a patient only when the two (or more) studies were performed on the same scanner. It is not possible to compare data generated on one scanner to data from another because there are not standards in DXA equipment. This applies even if the two scanners are made by the same photographer aerial. PROCEDURE: Dual-energy x-ray absorptiometry performed with routine technique. Reporting is completed in the form of a T-score. The T-score represents the standard deviation from peak bone mass based on young healthy adult. A Z-score is used for diagnosis in premenopausal women, and for men under the age of 50. FINDINGS: RESULT LUMBAR SPINE L1 - L4 BMD: 0.986 g/cm2 T-Score: - 1.7 Z-Score: - 0.3 Change from prior: None RESULTS FEMUR Left femoral neck BMD: 0.801 g/cm2 T-Score: - 1.7 Z-Score: - 0.2 Change from prior: None Right femoral neck BMD: 0.708 g/cm2 T-Score: - 2.4 Z-Score: - 0.9 Change from prior: None Left hip BMD: 0.817 g/cm2 T-Score: - 1.5 Z-Score: - 0.3 Change from prior: None Right hip BMD: 0.759 g/cm2 T-Score: - 2.0 Z-Score: - 0.7 Change from prior: None WHO criteria: Normal: T-score at or above -1 SD Osteopenia: T-score between -1.1 and -2.4 SD Osteoporosis: T-score at or below -2.5 SD FRAX RISK CALCULATION (USED FOR OSTEOPENIA ONLY): 10-year probability of major osteoporotic fracture: 14.0%. 10-year probability of hip fracture: 3.3%. us Yolanda Ahn DO DEXA Final Resu lt * (ABNORMAL) LIPID PANEL W REFLEX MEASURED LDL (03/17/2025 10:40 AM CDT) [facility] CHOLESTEROL, TOTAL 187 <200 mg/dL [facility] HDL CHOLESTEROL 58 > OR = 50 mg/dL [facility] TRIGLYCERIDES 101 <150 mg/dL [facility] LDL-CHOLESTEROL 110(H) mg/dL (calc) [facility] Comment: Reference range: <100 Desirable range <100 mg/dL for primary prevention; <70 mg/dL for patients with CHD or diabetic patients with > or = 2 CHD risk factors. LDL-C is now calculated using the Denise calculation, which is a validated novel method providing better accuracy than the Friedewald equation in the estimation of LDL-C. Femi WILLIAM et al. STEVEN. 2013;310(19): 9891-5645 (http://education.VivaRay.Forsythe/faq/EQV469) CHOL/HDLC RATIO 3.2 <5.0 (calc) [facility] NON HDL CHOLESTEROL 129 <130 mg/dL (calc) [facility] Comment: For patients with diabetes plus 1 major ASCVD risk factor, treating to a non-HDL-C goal of <100 mg/dL (LDL-C of <70 mg/dL) is considered a therapeutic option. Blood BLOOD SPECIMEN / Unknown 03/17/2025 10:40 AM CDT 03/17/2025 10:40 AM CDT Narrative [facility] - 03/18/2025 4:01 AM CDT FASTING:YES FASTING: YES us Yolanda Ahn DO CHEMISTRY Final Resu lt Performing Organization Address [facility] Co de Phone Number [facility] [address] [address], [facility] [address] * ANTI HCV (10/22/2024 3:28 PM CONSTRUCTION [facility]EMAN) HEPATITIS C ANTIBODY NON-REACTI VE NON-REACT URIEL [facility] Comment: HCV antibody was non-reactive. There is no laboratory evidence of HCV infection. In most cases, no further action is required. However, if recent HCV exposure is suspected, a test for HCV RNA (test code 70964) is suggested. For additional information please refer to http://education.Zursh/faq/CZB79p4 (This link is being provided for informational/ educational purposes only.) Blood BLOOD SPECIMEN / Unknown 10/22/2024 3:28 PM [employer]CTION [employer]AN 10/22/2024 3:29 PM [employer]CTION [employer]AN us Yolanda Ahn DO SEND OUTS Final Resu lt Performing Organization Address [facility]/ZIP Co de Phone Number [facility] [id number] [place] [address], [facility] [address] [place] [address] * XR MAMMO SUKHJINDER UNI ADDL VIEWS [...] with the patient. BI-RADS Category 4: Suspicious Dictated by: Nestor Beck MD @07/15/2024 3:46:02 PM CRL:rcd PATIENTS: You will also receive a letter with your examination results in an easy to read format. If you have questions about your results, please contact your referring provider. Narrative 07/16/2024 3:09 PM CDT For Patients: As a result of the Century Cures Act, medical imaging exams and procedure reports are released immediately into your electronic medical record. You may view this report before your referring provider. If you have questions, please contact your [...] measures 6 x 3 x 10 mm. us Karen MUNOZ MAMMO Final Res ult from Last 3 Months or Most Recently Relevant to Health Maintenance Insurance [facility] Care Teams Swimming Instructor Relationship Specialty Start Date End Date Yolanda Ahn DO [address] [place] [address] PCP - General Family Practice 07/14/24 Oxana Pedroza RN [address] [address] Laundry Worker - [facility] Registered Nurse 10/17/22 Emily Angel RN [address] [address] Laundry Worker - [facility] Registered Nurse 10/17/22 Mary Almanzar MD [address] [address] Psychiatry 09/13/25
--- OUTSIDE RECORDS SUMMARY | 2025-10-15 09:26 | XMS_ITS | Encounter Summary ---
Author Organization [facility] Address [address] [place] [address] Care Team Providers Care Screen Operator Name Role Phone Elsewhere, Pcp Primary Care Provider Unavailabl e Encounter Details Date Type Department Care Team (Late st Contact Info) Description 12/14/2015 Historical Ophthalmology [facility] Eduardo Todd O.D. [address] [place] [phone] Social History Tobacco Use Types Packs/Day Years Used Date Smoking Tobacco: Never Assessed Comments Unknown Sex and Gender Information Value Date Recorded Sex Assigned at Female 12/18/2023 8:55 AM FOUNDRY MANAGER Legal Sex Female 3:27 AM FOUNDRY MANAGER Gender Identity Female 05/21/2018 4:12 PM CDT Sexual Orientation Straight 05/21/2018 4: 12 PM CDT documented as of this encounter Progress Notes * Eduardo Todd O.D. - 12/14/2015 4:14 PM CST Contact Lens Exam HISTORY OF PRESENT ILLNESS vision isn't that good with contacts but likes to wear them. CD Reports - EYECL Id: [id number] Status: Fnl documented in this encounter Plan of Treatment Not on file documented as of this encounter Visit Diagnoses Not on filedocumented in this encounter Additional Health Concerns Infection Onset Date Last Indicated Resolved Time COVID19 Pending 11/18/2020 11/18/2020 11/18/2020 1 1:59 AM FOUNDRY MANAGER COVID19 Pending 11/18/2020 11/18/2020 11/18/2020 6 :45 PM FOUNDRY MANAGER COVID19 Pending 10/15/2021 10/15/2021 10/15/2021 8 :23 PM FOUNDRY MANAGER COVID19 Pending 01/29/2022 01/29/2022 01/29/2022 1 :59 PM CDT COVID19 Pending 03/28/2022 03/28/2022 03/28/2022 1 0:49 AM CDT COVID19 Pending 03/28/2022 03/28/2022 03/28/2022 1 :14 PM CDT Assessment Noted Time PHQ-9 Depression Total Score: 0 03/13/20 15 3:14 PM CDT documented as of this encounter Care Teams Screen Operator Relationship Specialty Start Date End Date Elsewhere, Pcp PCP - General Internal Medicine 06/23/25 documented as of this encounter
--- OUTSIDE RECORDS SUMMARY | 2025-10-15 09:26 | XMS_ITS | Encounter Summary ---
Author Organization [facility] Address [address] [place] [address] Care Team Providers Care Newspaper Photojournalist Name Role Phone Elsewhere, Pcp Primary Care Provider Unavailabl e Encounter Details Date Type Department Care Team (Late st Contact Info) Description 01/14/2017 Historical Ophthalmology [facility] Eduardo Todd O.D. [address] [place] [phone] Social History Tobacco Use Types Packs/Day Years Used Date Smoking Tobacco: Never Comments Unknown Sex and Gender Information Value Date Recorded Sex Assigned at Female 12/18/2023 8:55 AM KEELER POLYGRAPH OPERATOR Legal Sex Female 3:27 AM KEELER POLYGRAPH OPERATOR Gender Identity Female 05/21/2018 4:12 PM [...] eyeglass prescription\ CDM Reports - EYEGEN Id: [id number] Status: Fnl documented in this encounter Plan of Treatment Not on file documented as of this encounter Visit Diagnoses Not on filedocumented in this encounter Additional Health Concerns Infection Onset Date Last Indicated Resolved Time COVID19 Pending 11/18/2020 11/18/2020 11/18/2020 1 1:59 AM KEELER POLYGRAPH OPERATOR COVID19 Pending 11/18/2020 11/18/2020 11/18/2020 6 :45 PM KEELER POLYGRAPH OPERATOR COVID19 Pending 10/15/2021 10/15/2021 10/15/2021 8 :23 PM KEELER POLYGRAPH OPERATOR COVID19 Pending 01/29/2022 01/29/2022 01/29/2022 1 :59 PM CDT COVID19 Pending 03/28/2022 03/28/2022 03/28/2022 1 0:49 AM CDT COVID19 Pending 03/28/2022 03/28/2022 03/28/2022 1 :14 PM CDT Assessment Noted Time PHQ-9 Depression Total Score: 0 03/13/20 15 3:14 PM CDT documented as of this encounter Care Teams Newspaper Photojournalist Relationship Specialty Start Date End Date Elsewhere, Pcp PCP - General Internal Medicine 06/23/25 documented as of this encounter
--- OUTSIDE RECORDS SUMMARY | 2025-10-15 09:26 | XMS_ITS | Clinical Summary ---
Author Organization [facility] Address [address] [place] [address] Care Team Providers Care Instructor Dancing Name Role Phone Elsewhere, Pcp Primary Care Provider Unavailabl e Source Comments Patient records contain information from all sites at [facility]. For routine questions regarding patient records, call [phone] during business hours, M-F 8:00 AM - 5:00 PM Central Time. Record requests for emergency care only can be directed to [phone] at any time.[facility] Allergies No known active allergies Medications * This document contains information received from the source organization and may not represent a complete record from that organization. MULTIVITAMIN ORAL Take by mouth daily. 2 Active ibuprofen (ADVIL,MOTRIN) 600 mg tablet Take 1 tablet (600 mg total) by mouth 3 (three) times a day. 100 tablet 11 8 Active Additional Information Patient not taking.Reported on 08/04/2025 levothyroxine (SYNTHROID, LEVOTHROID) 75 mcg tablet Take 1 tablet (75 mcg total) by mouth once daily. 90 tablet 3 1 Active lithium carbonate (ESKALITH) 300 mg capsule Take 900 mg by mouth as directed. Take 2 capsules by mouth every morning and 1 capsule every evening. 4 Active traZODone (DESYREL) 100 mg tablet Take 100 mg by mouth at bedtime as needed for sleep. Active clonazePAM (KlonoPIN) 1 mg tabletIndicatio ns:Bipolar I Disorder (HCC),Anxiety Take 1 tablet (1 mg total) by mouth 2 (two) times a day. 60 tablet 4 Active famotidine (Pepcid) 20 mg tablet Take 20 mg by mouth 2 (two) times a day as needed. 4 Active aspirin [address] tablet Take 1 tablet by mouth daily. 4 Active rosuvastatin (Crestor) 5 mg tablet Take 5 mg by mouth at bedtime. 5 Active mometasone (Nasonex) 50 mcg/actuation nasal spray Administer 2 sprays into each nostril daily. 17 g 11 5 Active azelastine (Astelin) 137 mcg/spray (0.1 %) nasal spray Administer 2 sprays into each nostril 2 (two) times a day. Use in each nostril as directed 30 mL 11 5 08/08/20 26 Active ipratropium (Atrovent) 21 mcg (0.03 %) nasal spray Administer 1-2 sprays into each nostril 2 (two) times a day. 90 mL 3 5 Active Active Problems Problem Noted Date Diagnosed [...] Encounters Date Type Department Care Team Description 09/22/2025 Clinical Communication Division of Allergic Diseases in [place], [place] [address] [place] [phone] Renetta Mann M.D. 08/08/2025 12:30 PM CDT Clinical Support Division of Allergic Diseases in [place], [place] [address] [place] [phone] Jeremias Hu M.B.B.S., Ph.D. Niesha Dumont M.S.N., R.N. Rhinitis Chronic 08/08/2025 10:30 AM CDT Education Division of Allergic Diseases in [place], [place] [address] [place] [phone] Renetta Mann M.D. Ainsley Rod, RDestiny. 08/08/2025 10:30 AM CDT Comprehensive Visit Division of Allergic Diseases in [place], [place] [address] [place] [address] Renetta Mann M.D. Rhinitis Chronic (Primary Dx); Drip Post Nasal; Other Disturbances Of Smell And Taste; Congestion Nasal; Headache Sinus 08/04/2025 Clinical Communication Virtual Review in [address] [phone] Provider, Unknown Pre-visit Intake from Last 3 Months Immunizations Immunization Administration Dates Next Due DTaP (Infanrix, Tripedia) 06/20/2008 Influenza TIV (IM) 10/22/2024 Influenza, Quadrivalent, Adjuvanted, Preservativ e Free 10/29/2022 Influenza, Unspecified 09/19/2014,08/17/2012 OPV, Trivalent 08/27/1973 SARS-COV-2 (COVID-19) - MODE RNA (12 YEARS AND OLDER) Fall Seasonal 12/24/2023 SARS-COV-2 (COVID-19) - PFIZ ER (Discontinued)(12 [...] Father Gout Father Hypertension Father Breast cancer (in one breast) Maternal Grandmother Anxiety/ depression Mother Breast cancer (in one breast) Mother Cancer Mother Depression Mother Eczema Mother Anxiety/ depression Sister Breast cancer (in one breast) Sister Irritable bowel syndrome Sister Stroke Sister Relation Name Status Comments Daughter Father Maternal Grandmother Mother Sister Social History Tobacco Use Types Packs/Day Years Used Date Smoking Tobacco: Never Smokeless Tobacco: Never Tobacco Cessation:Counseling Given: Not Answered Alcohol Use Standard Drinks/Week Comments Yes 2 (1 standard drink = 0.6 oz pur e alcohol) Not every week [facility] Utilities Answer Date Recorded In the [...] your living situation today? I have a [facility] place to live 01/16/2025 Comments No Sex and Gender Information Value Date Recorded Sex Assigned at Female 12/18/2023 8:55 AM ADMISSIONS ASSISTANT Legal Sex Female 3:27 AM ADMISSIONS ASSISTANT Gender Identity Female 05/21/2018 4:12 PM CDT Sexual Orientation Straight 05/21/2018 4: 12 PM CDT Last Filed Vital Signs Vital Sign Reading Time Taken Comments Blood Pressure 122/77 06/28/2025 3:19 PM CDT Pulse 73 06/28/2025 3:19 PM CDT Temperature 36.7 C (98.1 F) 08/08/2025 10:15 AM CDT Respiratory Rate 14 12/10/2024 2:40 PM ADMISSIONS ASSISTANT Oxygen Saturation 96% 01/12/2025 1:56 PM ADMISSIONS ASSISTANT Inhaled Oxygen Concentration - - Weight 72.9 kg (160 lb 11.5 oz) 025 10:15 AM CDT Height 163.6 cm (5' 4.41) 08/08/2025 1 0:15 AM CDT Body Mass Index 27.24 08/08/2025 10:15 AM CDT Plan of Treatment Health Maintenance Due Date Last Done Comments CT Colonography 1955 Cologuard 1955 IPV Vaccines (2 of 3 - 4-dos e series) 09/24/1973 08/27/1973 RSV vaccine - (32-3 6 weeks) or 50+ years (1 - Risk 50-74 years 1-dose series) 2006 Zoster Vaccines (1 of 2) 2006 Colonoscopy 04/09/2021 04/09/2016, 04/09/2016 Colorectal Cancer Surveillance 04/09/2021 Depression Screening (Annual PHQ-2) 11/17/2024 Mammogram 06/25/2025 06/25/2024, 08/0 07/2024, 03/13/2021, Additional history exists Influenza Vaccine (#1) 2025 , 10/29/2022, 10/29/2022, Additional history exists COVID-19 Vaccine (2024- 6 season) 2026 09/14/2025, 10/22/2024, 12/24/2023, Additional history exists Thyroid Stimulating Hormone (TSH) test for thyroid function 03/17/2026 03/17/2025, 12/24/2023, 10/29/2022, Additional history exists Fasting Glucose for Diabetes Screening 03/11/2028 03/11/2025, 04/24/2022, 12/03/2021, Additional history exists DTaP,Tdap,and Td Vaccines (6 - Td or Tdap) 03/12/2035 03/12/2025, 05/21/2018, 06/20/2008, Additional history exists Visit: Medicare Annual Wellness Discontinued Cervical/Vaginal Cancer Screening Discontinued 05/28/2024, 04/25/2020, 05/21/2018, Additional history exists Fall Risk Screen (Annual) Completed 12/10/2024 Pneumococcal vaccine (50+ years) Completed 03/23/20 Bone Density Scan (Osteoporo sis Screen) Discontinued 07/13/2025 Procedures Procedure Name Priority Date/Time Associated Diagnosis Comments ALI BASIC SKIN TEST Routine 08/08/2025 1 2:30 PM CDT Rhinitis Chronic ALI NORTHERN SKIN TEST Routine 08/08/2025 12:30 PM CDT Rhinitis Chronic HEMOGLOBIN A1C, B Routine 03/11/2025 5:0 1 PM CDT Aphasia THYROID FUNCTION CASCADE, S Routine 12/24/2023 12:52 PM ADMISSIONS ASSISTANT Hypothyroidism OUTSIDE MG MAMMOGRAM Routine 03/07/2021 3:20 PM CDT PATHOLOGY UMBRELLA REPAIRER CYTOLOGY Routine 05/21/2018 11:21 AM CDT Pap Smear Examination COLONOSCOPY Routine 04/09/2016 from Last 3 Months or Most Recently Relevant to Health Maintenance Results * Northern Skin Test (08/08/2025 12:30 PM CDT) Narrative MMODAL - 08/08/2025 12:30 PM CDT Jeremias Hu M.B.B.S., Ph.D. 08/08/2025 3:36 PM Panel Skin Tests Flowsheet Row Clinical Support from 08/08/2025 in Division of Allergic Diseases in [place], [place] Controls Histamine Prick 6 mg/mL Result 6x6f Glycerin Prick 0 Basic Panel Cat Hair 0 Cockroach mix (Salvadorean & Sri Lankan) 0 Dog AP 0 D.F. Mite 0 D.P. Mite 0 Horse 0 Alternaria Alternata 0 Aspergillus Fumigatus 0 Bipolaris Sorokiniana 0 Chaetomium Globosum 0 Curvularia Spicifera (Drechslera Spicifera) 0 Epicoccum 0 Fusarium 0 Geotrichum 0 Helminthosporium 0 Hormodendrum/Clad (Cladosporium Cladosporioides) 0 Mucor Racemosus 0 Penicillium Mix 0 Phoma Herbarum 0 Pullularia 0 Rhizopus Stolonifer 0 Stemphylium Solani 0 Northern Panel Precious, White 0 Klever, White 0 Birch 0 Center Cross, Red 0 [place], Eastern 0 Elm, Salvadorean 0 Maple 0 Graham, Black 0 Montgomery 0 Garrett, White 0 Fedora, Salvadorean 0 Bermuda 0 Kentucky Blue 0 Orchard 0 Sharif 0 Kochia 0 [place]'s Quarters 0 Stewart Elder, Burweed 0 Mugwort, Common 0 Plantain, Algerian 0 Rough Pigweed 0 Samoan thistle 0 Short Ragweed 0 [place], Sheep Red 0 This test was performed using the RightSignature PC Device. Interpretation: Negative Skin Test. Clinical correlation recommended. See allergy note from today. Jeremias HairB.B.S., Ph.D. PROCEDURE/MINOR SURGICAL ORDERABLES Final Result MMODAL NA * Basic Skin Test (08/08/2025 12:30 PM CDT) Narrative MMODAL - 08/08/2025 12:30 PM CDT Jeremias Hu M.B.B.S., Ph.D. 08/08/2025 3:36 PM Panel Skin Tests Flowsheet Row Clinical Support from 08/08/2025 in Division of Allergic Diseases in [place], [place] Controls Histamine Prick 6 mg/mL Result 6x6f Glycerin Prick 0 Basic Panel Cat Hair 0 Cockroach mix (Salvadorean & Sri Lankan) 0 Dog AP 0 D.F. Mite 0 D.P. Mite 0 Horse 0 Alternaria Alternata 0 Aspergillus Fumigatus 0 Bipolaris Sorokiniana 0 Chaetomium Globosum 0 Curvularia Spicifera (Drechslera Spicifera) 0 Epicoccum 0 Fusarium 0 Geotrichum 0 Helminthosporium 0 Hormodendrum/Clad (Cladosporium Cladosporioides) 0 Mucor Racemosus 0 Penicillium Mix 0 Phoma Herbarum 0 Pullularia 0 Rhizopus Stolonifer 0 Stemphylium Solani 0 Northern Panel [place], White 0 Klever, White 0 Birch 0 Center Cross, Red 0 [place], Eastern 0 Elm, Salvadorean 0 Maple 0 Graham, Black 0 Montgomery 0 Garrett, White 0 Fedora, Salvadorean 0 Bermuda 0 Kentucky Blue 0 Orchard 0 Sharif 0 Kochia 0 [place]'s Qu[place] 0 Stewart Elder, Burweed 0 Mugwort, Common 0 Plantain, Algerian 0 Rough Pigweed 0 Samoan thistle 0 Short Ragweed 0 [place], Sheep Red 0 This test was performed using the RightSignature PC Device. Interpretation: Negative Skin Test. Clinical correlation recommended. See allergy note from today. us Jeremias HairB.B.S., Ph.D. PROCEDURE/MINOR SURGICAL ORDERABLES Final Result Performing Organization Address City/State/[facility] Co de Phone Number MMODAL NA * Hemoglobin A1c (03/11/2025 5:01 PM CDT) Hemoglobin A1c, B 4.4 4.0 - 5.6 % 03/11/2025 5:53 PM CDT DTL Blood (Blood, Venous) 03/11/2025 5:01 PM CDT 03/11/2025 5:28 PM CDT Cathi Fonseca M.D. LAB BLOOD ADD-ON Final Result [facility] [address] [place] [address], [facility] [address] [place] [address] * Thyroid Function [place] (12/24/2023 12:52 PM ADMISSIONS ASSISTANT) Pathologist [facility] TSH, Sensitive 0.8 0.3 - 4.2 mIU/L 12/24/2023 1:51 PM ADMISSIONS ASSISTANT [facility] Blood (Blood, Venous) 12/24/2023 12:52 PM ADMISSIONS ASSISTANT 12/24/2023 12:53 PM ADMISSIONS ASSISTANT Marianela Back M.D. LAB BLOOD ADD-ON Final Res ult [facility] [address] [place] [id number], [place] [address] * MAMMO [place] MEDICAID DIGITAL TOMOSYNTHESIS SCREENING BILATERAL-Outside Mammogram (03/07/2021 [...] overread is required please follow defined workflow. us Provider Not In System IMG BI PROCEDURES Final R esult IIWA NA * Pathology UMBRELLA REPAIRER Cytology (05/21/2018 11:21 AM CDT) PATHOLOGY UMBRELLA REPAIRER CYTOLOGY Patient Name: LEXI MCELROY MR#: [id number] Location: [facility] Date Reported: 06/05/2018 15:13 Specimen #[id number] Other Clinical Conditions: Pap Type: Routine Pap Clinical History/Status (Select all that apply): Post Menopausal Ancillary Testing (Select all that apply): HPV with Genotyping, PCR, ThinPrep (order separately in [facility] [id number]) Source: ThinPrep Liquid Based Pap Test, cervical/endocer vical Final Diagnosis ThinPrep Liquid Based Pap Test, cervical/endocer vical: Satisfactory for evaluation. Squamous Epithelial Cell Abnormality Atypical squamous cells of undetermined significance (ASC-US). Diagnosis Comment High Risk HPV: Negative Negative for High Risk HPV by nucleic acid amplification. The following High Risk HPV types were not detected: 16,18,31,33,35,3 9,45,51,52,56,58 ,59,66 and 68. [facility] 06/01/2018 Electronically Signed Out Valerie Patricia MD ([id number]) Date Reported:06/05/20 18 15:13 [facility] [address] [place] [address] CPT Code(s) A: 294891551, 36204 The cervico-vaginal smear is a screening test for cervical cancer and its precursors. As with all screening tests, it has an irreducible false negative and false positive rate. Regular testing is the best way to decrease these rates when used in conjunction with other established clinical practices for evaluating patients for cervical disease. Consider additional studies when the results of this testing do not correlate with the clinical signs and symptoms of disease. The cervico-vaginal smear is not a screening test for detecting endometrial pathology. [facility] Thin Prep Vial (Cervix/Endocerv ix) 05/21/2018 11:21 AM CDT 05/25/2018 11:21 AM CDT us Betty Argueta M.D. LAB PAP COPATH ORDERABL ES Final Result [facility] [address] [place] [address], [facility] * Colonoscopy (04/09/2016) EXT Colonoscopy Abnormal - See Scanned Report for Details Normal - See Scanned Report for Details, HIMS - Report Received and Scanned Comment:Colonoscopy done in- house. Recall 5 years. Anatomical Region Laterality Modality Endoscopy us Historical Provider GI PROCEDURE ORDERABLES Ghazal l Result from Last 3 Months or Most Recently Relevant to Health Maintenance Insurance [facility] Care Teams Instructor Dancing Relationship Specialty Start Date End Date Elsewhere, Pcp PCP - General Internal Medicine 06/23/25
--- OUTSIDE RECORDS SUMMARY | 2025-10-15 09:26 | XMS_ITS | Encounter Summary ---
Author Organization [facility] Address [address] [place] [address] Care Team Providers Care Sandblast Operator Name Role Phone Elsewhere, Pcp Primary Care Provider Unavailabl e Encounter Details Date Type Department Care Team (Late st Contact Info) Description 12/14/2015 Historical Ophthalmology [facility] Eduardo Todd O.D. [address] [place] [phone] Social History Tobacco Use Types Packs/Day Years Used Date Smoking Tobacco: Never Assessed Comments Unknown Sex and Gender Information Value Date Recorded Sex Assigned at Female 12/18/2023 8:55 AM FIELD KILN BURNER Legal Sex Female 3:27 AM FIELD KILN BURNER Gender Identity Female 05/21/2018 4:12 PM CDT [...] eyeglass prescription CDM Reports - EYEGEN Id: [id number] Status: Fnl documented in this encounter Plan of Treatment Not on file documented as of this encounter Visit Diagnoses Not on filedocumented in this encounter Additional Health Concerns Infection Onset Date Last Indicated Resolved Time COVID19 Pending 11/18/2020 11/18/2020 11/18/2020 1 1:59 AM FIELD KILN BURNER COVID19 Pending 11/18/2020 11/18/2020 11/18/2020 6 :45 PM FIELD KILN BURNER COVID19 Pending 10/15/2021 10/15/2021 10/15/2021 8 :23 PM FIELD KILN BURNER COVID19 Pending 01/29/2022 01/29/2022 01/29/2022 1 :59 PM CDT COVID19 Pending 03/28/2022 03/28/2022 03/28/2022 1 0:49 AM CDT COVID19 Pending 03/28/2022 03/28/2022 03/28/2022 1 :14 PM CDT Assessment Noted Time PHQ-9 Depression Total Score: 0 03/13/20 15 3:14 PM CDT documented as of this encounter Care Teams Sandblast Operator Relationship Specialty Start Date End Date Elsewhere, Pcp PCP - General Internal Medicine 06/23/25 documented as of this encounter
[2025-10-15 09:42] VITALS: BP 141/82; PULSE 65; RESP 22; TEMP 36.8; O2SAT 99; BMI 25.5
--- NOTE | 2025-10-15 09:49 | ED.GENADULT ---
HPI - General Adult General Date Seen: 10/15/25 Chief complaint: Psychiatric Problem/Disorder Stated complaint: mental health Time Seen by Provider: 10/15/25 09:43 History of Present Illness HPI narrative: 70-year-old female with a history of bipolar disorder, history of possible TIA in October 2024 (had a 1 hour episode of difficulty speaking). Who presents to the ER today with paranoia, insomnia, and symptoms of jonathon. History from the patient is that she has bipolar, originally diagnosed in 1990. It sounds like she was hospitalized with a manic/psychotic episode at that point. She has been hospitalized at least once since then. It sounds like she has been managed over the long-term on lithium extended release tablets. She used to live in [place], she moved to [place] about 3 years ago. It is difficult to get a clear history from her but she apparently has had a series of doctors who refill her meds but she does not have a consistent psychiatrist or therapist for the past several years. She says she follows with the [facility] at [place]. Last month her doctor, Dr. Ahn, discovered that she was having stage III chronic kidney failure and was thought to be related to her lithium. She was referred to a psychiatrist to get her meds adjusted. She saw a psychiatrist in [place], through the [facility] system, Dr. Beltran, sometime in the end of August. He gave her prescription for Depakote 20 50 mg p.o. b.i.d. on 09/13. Apparently this was not well tolerated by the patient. She may have developed jonathon so that Depakote was discontinued. She says she has not taken any Depakote for the past couple of weeks. She apparently saw the psychiatrist again and received a new prescription for Zyprexa dated 10/12 (3 days ago). However she is very distrustful of her new psychiatrist and does not think he has giving her good advice. She had her friend fill the new prescription but she is not taking any pills. She also has chronic anxiety and is on clonazepam for that and has been on a stable dose of clonazepam for several years. She says her doctors recently have been telling her that she is ?an addict? which makes her angry. She says ?how can I be an addict, if I am taking a prescription medication?! She has been taking clonazepam. She says she is taking it as prescribed. She did run out a few days ago and got a refill prescription available at [facility]. Apparently her friend did not know that she should also refill the clonazepam. Therefore the patient did not get the refill. She has not had any clonazepam for at least the past 4 days or so. For the past couple of weeks she has been noticing escalating paranoia, insomnia, poor appetite, anxiety, tremor in shake. Her daughter and son-in-law convinced her to come to the ER. They noticed that she has D stabilizing. They convinced her to come here because they feel like she needs inpatient care. The patient does have a distant history of suicidal thoughts with a suicide attempt. She shows me old healed scars on her left wrist when she attempted to cut her wrist may years ago. She says she is not currently suicidal. The patient says that she does not trust her doctor to give any medication recommendations. She will not take any pills he prescribed. The patient is able to tell me that she recognizes that she is having trouble and agrees with her daughters recommendation to come here and get inpatient care. She denies any recreational drug use. She did use marijuana many years ago when she was in college. Related Data Home Medications ?Medication ?Instructions ?Recorded ?Confirmed famotidine 20 mg tablet 20 mg PO BID 11/08/24 03/12/25 fluticasone propionate 50 1 spray intranasal DAILY 11/08/24 03/12/25 mcg/actuation nasal spray,suspension lithium carbonate 150 mg capsule 150 mg PO HS 11/09/24 03/12/25 lithium carbonate 300 mg capsule 300 - 600 mg PO BID Bipolar 11/09/24 03/12/25 Disorder divalproex 250 mg tablet,extended mg PO 10/15/25 release 24 hr olanzapine 5 mg tablet mg PO 10/15/25 Previous Rx's ?Medication ?Instructions ?Recorded levothyroxine 75 mcg tablet 75 mcg PO DAILY Hypothyroidism #90 06/11/23 tabs trazodone 100 mg tablet 100 mg PO HS PRN insomnia #90 tabs 12/09/23 ibuprofen 600 mg tablet 600 mg PO TID PRN pain #30 tabs 03/23/24 clonazepam 1 mg tablet 1 mg PO BID Bipolar #60 tabs 04/13/24 aspirin 81 mg tablet,delayed 81 mg PO DAILY #100 tabs 11/09/24 release Allergies Allergy/AdvReac Type Severity Reaction Status Date / Time No Known Drug Allergies Allergy Verified 03/12/25 12:00 [facility] Medical History Hypothyroidism ?E03.9 - Hypothyroidism, unspecified (ICD-10) Bipolar 1 disorder ?F31.9 - Bipolar disorder, unspecified (ICD-10) Family History Sister Protein S deficiency Social History Narrative: Lives independently at [address], daughter Brett lives close and would be MDM if needed. Nonsmoker, rare ETOH. DNR/DNI What is your current living situation?: I presently have a place to live Problems where you live: no known problems Problems where you live details: no known problems In the past 12 months, utilities in danger of being shut off: no In past 12 months, lack of transportation kept you from medical appts, meetings, work, or getting things needed for daily living: no In the past 12 mos, have been you worried that your food would run out before you had money to buy more?: never true In the past 12 mos, the food you bought just didn't last and you didn't have money to buy more?: never true Highest level of school completed/degree received: some college, no degree Smoking Status: Never smoker Second hand tobacco smoke exposure: No How often do you have a drink containing alcohol: monthly or less How often do you have six or more drinks on one occasion: Less than monthly AUDIT-C Alcohol total score: 2 Non-prescribed substance use: denies use How often does anyone, including family, friends and others, physically hurt you: never How often does anyone, including family, friends and others, insult or talk down to you: never How often does anyone, including family, friends and others, threaten you with harm: never How often does anyone, including family, friends and others, scream or curse at you: never Exam Narrative: Exam Narrative: Constitutional: Appears well-developed and well-nourished. Alert. Pressured speech and drums rapidly from 1 idea to the next. Often times interrupts me during her conversation but she is overall not combative or angry. HENT: Head: Atraumatic. No depressed skull fracture, Raccoon Eyes, Mendiola's sign. Nose: Nose normal. Mouth/Throat: Oral mucosa is clear and moist. no trismus. Pharynx normal. Tonsils symmetric. No tonsillar enlargement, erythema, or exudate. Eyes: Conjunctivae normal. EOM normal. Pupils equal, round, and reactive to light. No scleral icterus. Neck: Normal range of motion. Neck supple. No tracheal deviation present. No thyromegaly or thyroid masses. Cardiovascular: Normal rate, regular rhythm. No gallop. No friction rub. No murmur heard. Symmetric radial artery pulses Pulmonary/Chest: Effort normal. No stridor. No respiratory distress. No wheezes. No rales. No rhonchi . No tenderness. Abdominal: Soft No distension. No mass. No tenderness. No rebound. No guarding. Musculoskeletal: RUE: Normal range of motion. No tenderness. No deformity LUE: Normal range of motion. No tenderness. No deformity RLE: Normal range of motion. No edema. No tenderness. No deformity LLE: Normal range of motion. No edema. No tenderness. No deformity Neurological: Alert and oriented to person, place, and time. Normal strength. CN II-VII intact. No sensory deficit. GCS eye subscore is 4. GCS verbal subscore is 5. GCS motor subscore is 6. Normal coordination Skin: Skin is warm and dry. No rash noted. No pallor. Normal capillary refill. Psychiatric: Appears anxious or manic. Is tremulous and almost appears to be vibrating when she presents. Speaking rapidly and jumping quickly from topic to topic. Does not appear diaphoretic or having wet diapers to suggest a sympathomimetic toxidrome. Probably manic. Denies any current suicidal thoughts or plans. Is endorsing is endorsing that she is not sleeping for the past several nights, not wanting to eat. She is refusing to take her psychiatric medication (Zyprexa) even though her friend filled that prescription for her 3 days ago. She does not trust her psychiatrist. She says that he should not have stopped her lithium abruptly but should have weaned her off at the same time starting a new med. She says her family told her that they were worried about her. Additional history from her daughter, Clair is that she notes that her mother does struggle with mental health. She was last hospitalized about 10 or 15 years ago but did have a short stay in the outpatient facility about a year ago in [place]. She is currently living in the [facility]. Her daughter feels that the patient probably needs a higher level of care with more monitoring to make sure the patient is consistent with medications. Her daughter notes that she has been D stabilizing for the past couple of weeks ever since she was taken off lithium and has gotten very paranoid, having insomnia, pressured speech and seems manic. The daughter is concerned that she is escalating over the past few days. The patient is not endorsing any suicidal thoughts to her daughter. She has not been violent or agitated. Daughter notes that she does have a history of becoming agitated years in the past and does not want the patient to become so unstable this time . Daughter feels that she needs inpatient care to get her meds adjusted and he would even support restarting lithium if that is what it takes to stabilize her mother's bipolar. Const: Vital Signs, click to edit/add: Vital Signs - 24 hr 10/15/25 09:42 Temperature 98.3 F Pulse Rate [Pulse Oximeter] 65 Respiratory Rate 22 Blood Pressure [Ri ght Upper Arm] 141/82 H Pulse Oximetry 99 Oxygen Delivery Me thod Room Air Course Course ED Course: Recheck-patient tolerated oral Valium but was very paranoid and guarded about taking it. Recheck-discussed additional history from patient's daughter by phone Recheck-patient increasingly anxious. She here to young child crying so came out of her room to investigate why the child was crying. Nurses with ever were able to redirect her back into her room. Seems increasingly anxious. Recheck-patient out in the hallway, trying to get into a different ER room because she has a child crying and there. Were able to redirect her from that child's room. She was refusing go back to her own room. We were ultimately able to get her got go to the bathroom provide a urine sample but she was very paranoid. We activated a Dr. Horvath because of concern that she was increasingly anxious. She was not violent or aggressive. With considerable effort an extended period of time were able to talk the patient into coming out of the bathroom and get her to walk under her own power back to room. She initially acted like she was going to except oral Zyprexa and another dose of oral Valium. However she then crushed up and threw away 1 of the Zyprexa pills and only took 5 mg of Zyprexa. She is increasingly anxious, seemingly paranoid. She is talking about seeing the police here. In fact she saw our respiratory therapist to his a male who wears a imageloop jacket. She is not hallucinating but she is misinterpreting things that she is seeing. Recheck-she is on the hallway again, she is paranoid. Were able to get her to verbally go back into room with significant effort. She is refusing any oral meds to help calm down. Therefore she will receive Zyprexa 10 mg IM. Vital Signs Vital signs: Initial Vital Signs Temperature 98.3 F 10/15/25 09:42 Temperature Source Temporal Artery Scan 10/15/25 09:42 Pulse Rate 65 10/15/25 09:42 Respiratory Rate 22 10/15/25 09:42 Blood Pressure 141/82 H 10/15/25 09:42 Blood Pressure Mean 101 10/15/25 09:42 Pulse Oximetry 99 10/15/25 09:42 Oxygen Delivery Method Room Air 10/15/25 09:42 Vital Signs Temperature 98.3 F 10/15/25 09:42 Pulse Rate 65 10/15/25 09:42 Respiratory Rate 22 10/15/25 09:42 Blood Pressure 141/82 H 10/15/25 09:42 Pulse Oximetry 99 10/15/25 09:42 Oxygen Delivery Method Room Air 10/15/25 09:42 Temperature 98.3 F 10/15/25 09:42 Pulse Rate 65 10/15/25 09:42 Respiratory Rate 22 10/15/25 09:42 Blood Pressure 141/82 H 10/15/25 09:42 Pulse Oximetry 99 10/15/25 09:42 Oxygen Delivery Method Room Air 10/15/25 09:42 Medications Administered Medications: Discontinued Medications Generic Name Dose Route Start Last Admin Trade Name Freq PRN Reason Stop Dose Admin Diazepam 5 mg 10/15/25 10:27 10/15/25 10:45 Diazepam 5 Mg Tablet PO 10/15/25 10:28 5 mg ONCE ONE Administration Diazepam 5 mg 10/15/25 12:10/15/25 13:02 Diazepam 5 Mg Tablet PO 10/15/25 12:30 5 mg ONCE ONE Administration Olanzapine 10 mg 10/15/25 12:29 10/15/25 13:02 Olanzapine 5 Mg Tab.Rapdis PO 10/15/25 12:30 5 mg ONCE ONE Administration Medical Decision Making MDM Narrative Medical decision making narrative: This is a 70-year-old female presenting to the ER today by private car after ring significant encouragement from her family. She has a history of bipolar and had been pretty stable for several years on the lithium. She was recently taken off her lithium because of concern for kidney trouble and now has destabilized. She has been experiencing symptoms of jonathon bordering on psychosis for the past couple weeks and has decompensated for the past couple of days. Here in the ER she is definitely manic with pressured speech, flight of ideas, paranoid thoughts. She is also restless. She is frequently coming out of her ER room in going into other patient's rooms but is not violent or aggressive. She is also paranoid about police and expressing paranoid delusions requiring serial doses of oral meds and a dose of IM meds. She is not suicidal or homicidal. Nonetheless given her psychosis I do think she requires inpatient mental health care. [facility] She agrees the patient needs inpatient mental health admission and is starting a search for beds. We did check labs for this patient and they are reassuring. Kidney function normal. Thyroid normal. Salicylate and Tylenol levels are undetectable and there is no report of any ingestion or suicide attempt. White count is normal. She is not febrile. LFTs are normal. At this point this patient is medically clear for inpatient psychiatric evaluation. Lab Data Labs: Lab Results 10/15/25 10/15/25 Range/Units 10:27 11:05 WBC 6.71 (4.50-11.00) K/uL RBC 4.11 (4.00-5.20) m/uL Hgb 12.6 (12.0-16.0) gm/dL Hct 39.9 (33.0-51.0) % MCV 97 (80-100) fL MCH 31 (26-34) pg MCHC 32 (32-36) gm/dL RDW Coeff of Priyanka 12.5 (11.5-15.5) % Plt Count 228 (140-440) K/uL Neut % (Auto) 72.8 H (42.0-72.0) % Lymph % (Auto) 19.8 L (20-44) % Robeson % (Auto) 6.1 (0.0-11.0) % Eos % (Auto) 0.6 (0.0-7.0) % Baso % (Auto) 0.6 (0.0-3.0) % Neut # (Auto) 4.90 (1.7-7.0) K/uL Lymph # (Auto) 1.30 (0.90-2.90) K/uL Robeson # (Auto) 0.40 (0.00-0.90) K/UL Eos # (Auto) 0.04 (0.00-0.50) K/uL Baso # (Auto) 0.04 (0.00-0.30) K/uL Abs Immat Gran (auto) 0.01 (0.00-0.30) K/uL Imm/Tot Granulo (auto) 0.1 % Sodium 137 (135-149) mmol/L Potassium 4.1 (3.6-5.1) mmol/L Chloride 100 (96-114) mmol/L Carbon Dioxide 21 (20-32) mmol/L Anion Gap 16 H (7-15) mEq/L BUN 16 (7-30) mg/dL Creatinine 1.1 (0.5-1.5) mg/dL Estimated Creat Clear 45.19 Estimated GFR 54 ml/min Glucose 101 (60-115) mg/dL Calcium 10.1 (8.4-10.6) mg/dL Total Bilirubin 0.8 (0.1-1.5) mg/dL AST 35 (12-35) U/L ALT 23 (4-35) U/L Alkaline Phosphatase 71 (40-150) U/L Total Protein 8.2 (6.0-8.3) g/dL Albumin 4.9 (3.3-5.0) g/dL TSH 1.220 (0.270-4.200) uIU/mL Salicylates < 1.0 L (1.0-10) mg/dL Urine Opiates Screen Cancelled Ur Buprenorphine Scrn Cancelled Ur Oxycodone Screen Cancelled Urine Methadone Screen Cancelled Acetaminophen < 10.0 (10.0-30.0) ug/mL Ur Barbiturates Screen Cancelled U Tricyclic Antidepress Cancelled Ur Phencyclidine Scrn Cancelled Ur Amphetamines Screen Cancelled U Methamphetamines Scrn Cancelled U Benzodiazepines Scrn Cancelled Urine Cocaine Screen Cancelled U Marijuana (THC) Screen Cancelled Ur Drug Screen Comment Cancelled Ethyl Alcohol < 0.01 (0.01-0.03) % Discharge Plan Discharge Clinical Impression: Jonathon Patient Disposition: Xfer Other Prescriptions: No Action levothyroxine 75 mcg tablet 75 mcg PO DAILY Qty: 90 3RF ibuprofen 600 mg tablet 600 mg PO TID PRN (Reason: pain) Qty: 30 0RF famotidine 20 mg tablet 20 mg PO BID fluticasone propionate 50 mcg/actuation spray,suspension 1 spray INTRANASAL DAILY lithium carbonate 150 mg capsule 150 mg PO HS Rx Instructions: Take once per day in the evening with one 300mg lithium capsule for a total of 450 mg lithium carbonate 300 mg capsule 300 - 600 mg PO BID Rx Instructions: Take 2 capsules in the morning and 1 capsule in the evening with one 150 mg lithium capsule aspirin 81 mg tablet,delayed release (DR/EC) 81 mg PO DAILY Qty: 100 2RF olanzapine 5 mg tablet PO divalproex 250 mg tablet extended release 24 hr PO trazodone 100 mg tablet 100 mg PO HS PRN (Reason: insomnia) Qty: 90 3RF clonazepam 1 mg tablet 1 mg PO BID Qty: 60 2RF [facility]
[2025-10-15 11:13] LABS: Hematocrit* 39.9 % (33.0-51.0); Hemoglobin* 12.6 gm/dL (12.0-16.0); Immature Granulocytes Abs Auto 0.01 K/uL (0.00-0.30); Immature Granulocytes Pct Auto 0.1 %; Mean Corpuscular HGB Conc 32 gm/dL (32-36); Mean Corpuscular Hemoglobin 31 pg (26-34); Mean Corpuscular Volume 97 fL (80-100); RDW Coefficient of Variation % 12.5 % (11.5-15.5); Red Blood Count* 4.11 m/uL (4.00-5.20); White Blood Count* 6.71 K/uL (4.50-11.00)
[2025-10-15 11:16] LABS: Lymphocytes Absolute Auto 1.30 K/uL (0.90-2.90); Slide Review Reflex No
[2025-10-15 11:27] LABS: Albumin* 4.9 g/dL (3.3-5.0); Chloride* 100 mmol/L (96-114)
[2025-10-15 11:28] LABS: Potassium* 4.1 mmol/L (3.6-5.1); Sodium* 137 mmol/L (135-149)
[2025-10-15 11:30] LABS: Alanine Aminotransferase* 23 U/L (4-35); Anion Gap 16 mEq/L (7-15); Aspartate Amino Transferase* 35 U/L (12-35); Blood Urea Nitrogen* 16 mg/dL (7-30); Calcium* 10.1 mg/dL (8.4-10.6); Carbon Dioxide* 21 mmol/L (20-32); Creatinine* 1.1 mg/dL (0.5-1.5); Est. Creatinine Clearance* 45.19; Estimated Glomerular Filt Rate 54 ml/min; Glucose* 101 mg/dL (60-115); Total Protein* 8.2 g/dL (6.0-8.3)
[2025-10-15 11:31] LABS: Alkaline Phosphatase* 71 U/L (40-150); Bilirubin Total* 0.8 mg/dL (0.1-1.5)
[2025-10-15 11:34] LABS: Acetaminophen* < 10.0 ug/mL (10.0-30.0); Ethanol* < 0.01 % (0.01-0.03); Salicylate* < 1.0 mg/dL (1.0-10)
[2025-10-15 12:14] LABS: TSH With Reflex to FT4* 1.220 uIU/mL (0.270-4.200)
[2025-10-15 14:20] LABS: Cannabinoid Screen Urine Negative (Negative); Methamphetamines Screen Urine Negative (Negative); Tricyclic Antidepressant Urine Negative (Negative)
[2025-10-15] MEDS: OLANZapine 5 MG/ML inj 10 MG IM (14:35)
[2025-10-15 14:58] VITALS: BP 126/89; PULSE 88; RESP 18; O2SAT 97
[2025-10-15 19:39] VITALS: BP 128/65; PULSE 70; RESP 16; TEMP 36.9; O2SAT 96
[2025-10-15] MEDS: TRAZODONE HCL 50 MG TABLET 100 MG PO (20:11)
[2025-10-15 22:39] VITALS: BP 138/60; PULSE 70; RESP 18; O2SAT 96
[2025-10-16 03:30] VITALS: PULSE 86; RESP 16; O2SAT 96
[2025-10-16] MEDS: LOSARTAN POTASSIUM 50 MG TABLET 25 MG PO (10:30)
[2025-10-16] MEDS: LEVOTHYROXINE 75 MCG TABLET PO (10:30)
[2025-10-16] MEDS: ASPIRIN 81 MG TABLET EC PO (11:37)
[2025-10-16] MEDS: TRAZODONE HCL 50 MG TABLET 100 MG PO (20:00)
[2025-10-16] MEDS: OLANZapine 5 MG/ML inj 10 MG IM (20:30)
== END 2025-10-16 20:45 | disposition other institution (70) ==
PROVIDERS: Emergency Provider Emergency Medicine; PCP Family Medicine
DX: F22 Delusional disorders (principal); F31.89 Other bipolar disorder
CPT/HCPCS: 36415; 80053; 80143; 80178; 80179; 80306; 82077; 84443; 85025; 96372; 99285; Q3014; A9270; J1200; J1630; J2060

== ENCOUNTER 2025-10-16 20:55 | Outpatient (CLI) | payer OTHER, SELFPAY | END 2025-10-16 20:57 | disposition home or self-care (01) | LOC: AMB 12-20 14:17 | PROVIDERS: PCP Family Medicine; Visit Provider Emergency Medicine | DX: F30.9 Manic episode, unspecified (principal) | CPT/HCPCS: A0425; A0428 ==

== ENCOUNTER 2025-11-11 15:59 | Outpatient (CLI) | payer OTHER, SELFPAY | END 2025-11-11 16:00 | disposition home or self-care (01) | PROVIDERS: PCP Family Medicine; Visit Provider Physician Assistant Surgical | DX: N30.01 Acute cystitis with hematuria (principal) | CPT/HCPCS: 87086; 87186 ==